=== PATIENT | male | born 1950 | race Hispanic/Latino ===

== ENCOUNTER 2017-05-18 09:53 | Emergency (ER) | payer MEDICARE, OTHER ==
[2017-05-18 12:27] LABS: Bilirubin Negative (Negative); Blood, Urine Small (Negative); Glucose, Urine (Dipstick) >=1000 mg/dL (Negative); Ketone, Urine Negative (Negative); Nitrite Negative (Negative); Protein, Urine (Dipstick) > or equal to 300 mg/dL (Neg-Trace); Urobilinogen 0.2 mg/dL (0.2-1.0)
[2017-05-18 12:30] LABS: Bacteria/HPF 1+ HPF (None Seen); Hyaline Casts/LPF 4-6 HYALINE CAST LPF (0-3 Hyaline)
== END 2017-05-18 12:45 | disposition home or self-care (01) ==
LOC: ERS 09:53
DX: N39.0 Urinary tract infection, site not specified (principal); I25.10 Atherosclerotic heart disease of native coronary artery without angina pectoris; E11.9 Type 2 diabetes mellitus without complications; E78.5 Hyperlipidemia, unspecified; I10 Essential (primary) hypertension; F41.9 Anxiety disorder, unspecified
CPT/HCPCS: 81003; 81015; 99283

== ENCOUNTER 2018-06-30 09:44 | Outpatient (CLI) | payer MEDICARE ==
--- NOTE | 2018-06-30 12:13 | ULT ---
ULTRASOUND DOPPLER DUPLEX VENOUS BILATERAL UPPER EXTREMITIES: (VENOUS MAPPING) 06/30/2018 HISTORY: A 67-year-old male with chronic renal failure who presents for venous mapping for surgical planning f or hemodialysis access AV fistula surgery. FINDINGS: RIGHT: Brachial artery: 5 mm Radial artery: 2 mm Ulnar artery: 1 mm CEPHALIC VEIN: Proximal arm: 3.5 mm Mid arm: 2.5 mm Distal arm: 2 mm Antecubital: 2 mm Proximal forearm: 1.5 mm Mid forearm: 2 mm Distal forearm: 1 mm BASILIC VEIN: Proximal arm: 5.5 mm Mid arm: 4.5 mm Distal arm: 3 mm Antecubital: 2.5 mm Proximal forearm: 1.5 mm Mid forearm: 1.5 mm Distal forearm: 1 mm LEFT: Brachial artery: 4 mm Radial artery: 1.5 mm Ulnar artery: 2 mm CEPHALIC VEIN: Proximal arm: 2.5 mm Mid arm: 1.5 mm Distal arm: 2.5 mm Antecubital: 2 mm Proximal forearm: 1.5 mm Mid forearm: 2 mm Distal forearm: 1.5 mm BASILIC VEIN: Proximal arm: 5.5 mm Mid arm: 4 mm Distal arm: 1.5 mm Antecubital: 1.5 mm Proximal forearm: 1.5 mm Mid forearm: 1 mm Distal forearm: 1.5 mm IMPRESSION: The right arm basilic vein is consistently 3 mm or larger in caliber. POS: [facility]
== END 2018-06-30 09:45 | disposition home or self-care (01) ==
LOC: ULT 09:44
PROVIDERS: ATTEND Internal Medicine Nephrology
DX: Z01.818 Encounter for other preprocedural examination (principal); N18.6 End stage renal disease
CPT/HCPCS: 93970; G0365

== ENCOUNTER 2018-07-03 14:33 | Emergency (ER) | payer MEDICARE ==
[2018-07-03 15:10] LABS: #Basophils 0.1 thou/uL (0.0-0.2); #Lymphocytes 1.3 thou/uL (1.20-3.40); #Monocytes 0.9 thou/uL (0.11-0.59); #Neutrophils 6.6 thou/uL (1.40-6.50); %Basophils 1.5 % (0.0-1.0); %Eosinophils 10.3 % (0.0-10.0); %Neutrophils 66.2 % (42.0-75.0); Hemoglobin 13.1 g/dL (14.0-18.0); Mean Corpuscular HGB CONC 34.3 g/dL (32.0-36.0); Mean Corpuscular Volume 93.3 fL (78.0-98.0); Mean Platelet Volume 9.9 fL (7.4-10.4); Platelet Count 153 thou/uL (130-400); Red Blood Cell (RBC) Count 4.08 mill/uL (4.70-6.10)
--- NOTE | 2018-07-03 15:27 | RAD ---
1 VIEW CHEST: Date: 07/03/18 HISTORY: Fall. FINDINGS: There are sternotomy wires. Right-sided HemoSplit dialysis catheter terminates in the right atrium. N ormal cardiac silhouette. Pulmonary vessels and hilum are normal. Costophrenic angles are clear. Hybrid Tester miles changes, without consolidation or mass. No pneumothorax. No osseous abnormalities. IMPRESSION: No acute cardiopulmonary process. POS: [facility]
[2018-07-03 15:35] LABS: ALT (SGPT) 22 U/L (8-55); AST (SGOT) 25 U/L (5-34); Albumin 4.2 g/dL (3.4-4.8); Alkaline Phosphatase 104 U/L (40-150); Anion Gap 15 mmol/L (10-20); BUN (Urea Nitrogen) 22 mg/dL (8.4-25.7); Bilirubin, Total 0.8 mg/dL (0.2-1.2); Calc. Creatinine Clearance 0 mL/min (70-130); Calcium 8.3 mg/dL (7.8-10.44); Carbon Dioxide 29 mmol/L (23-31); Chloride 99 mmol/L (98-107); Estimated GFR-MDRD 13; Globulin 3.2 g/dL (2.4-3.5); Glucose 66 mg/dL (80-115); Potassium 3.8 mmol/L (3.5-5.1); Protein, Total 7.4 g/dL (5.8-8.1); Sodium 139 mmol/L (136-145)
--- NOTE | 2018-07-03 15:41 | CT ---
CT BRAIN WITHOUT CONTRAST: Date: 07/03/18 HISTORY: Fall. Hypoglycemia. Hypertension. FINDINGS: Comparison made with exam of 06/03/16. There are changes of cortical atrophy and chronic small vessel ischemic disease. The ventricular size is appropriate and the basilar cisterns are patent. No evidence of infarct, hemorrhage, midline shif t, or abnormal extra-axial fluid collections are seen. The bony calvarium is intact. There is mucosal disease in the paranasal sinuses. IMPRESSION: No CT evidence of acute intracranial process. POS: [facility]
--- NOTE | 2018-07-03 15:43 | CT ---
CT OF THE CERVICAL SPINE WITHOUT CONTRAST: 07/03/18 HISTORY: Fall with neck pain. Hypertension. TECHNIQUE: Multiple contiguous axial images were obtained in a CT of the cervical spine without contrast. Sagit raisa and coronal reformats were performed. FINDINGS: Moderate degenerative changes are seen in the cervical spine. The vertebral bodies demonstrate norm al height and alignment without fracture or subluxation. No prevertebral soft tissue swelling is seen . The posterior facets are well aligned. Normal alignment of the skull base with the cervical spine is seen. Vascular calcifications are seen in the carotid arteries. The lung apices are unremarkable. IMPRESSION: Moderate degenerative changes of the cervical spine without acute osseous abnormality. POS: [facility]
--- NOTE | 2018-07-04 13:59 | EKG ---
Test Reason : SYNCOPE Blood Pressure : / mmHG Vent. Rate : 072 BPM Atrial Rate : 072 BPM P-R Int : 138 ms QRS Dur : 086 ms QT Int : 492 ms P-R-T Axes : 051 086 053 degrees QTc Int : 538 ms Sinus rhythm with occasional Premature ventricular complexes Junctional ST depression, probably normal Prolonged QT Confirmed by ELAINA TERRAZAS D.O. ([id number]), newspaper or periodical editor MEÑO PAINTING ([id number]) on 07/04/2018 1:58:54 PM Referred By: MK Confirmed By:ELAINA TERRAZAS D.O.
== END 2018-07-03 17:44 | disposition home or self-care (01) ==
LOC: ERS 14:33
DX: E11.649 Type 2 diabetes mellitus with hypoglycemia without coma (principal); E78.5 Hyperlipidemia, unspecified; I10 Essential (primary) hypertension; F41.9 Anxiety disorder, unspecified; Z79.899 Other long term (current) drug therapy
CPT/HCPCS: 36415; 36416; 70450; 71045; 72125; 80053; 83605; 83735; 85025; 93005

== ENCOUNTER 2018-07-06 11:18 | Inpatient (IN) | payer MEDICARE ==
[~2018-07-06 11:18] MED LIST: Iopamidol-370 76% 500 ML 1 ML ONE
[2018-07-06] MEDS ORDERED: Piperacillin/Tazobactam 3.375 GM VIAL ONE (11:34)
[2018-07-06 12:04] LABS: Hemoglobin 9.8 g/dL (14.0-18.0); Mean Corpuscular HGB CONC 32.2 g/dL (32.0-36.0); Mean Corpuscular Hemoglobin 29.8 pg (27.0-31.0); Mean Corpuscular Volume 92.7 fL (78.0-98.0); Mean Platelet Volume 10.4 fL (7.4-10.4); Platelet Count 120 thou/uL (130-400); RBC Distribution Width 12.9 % (11.5-14.5); Red Blood Cell (RBC) Count 3.27 mill/uL (4.70-6.10); White Blood Cell (WBC) Count 7.7 thou/uL (4.8-10.8)
--- NOTE | 2018-07-06 12:06 | RAD ---
CHEST 1 VIEW: Date: 07/06/18 HISTORY: Chest pain. Altered mental status. COMPARISON: Chest radiograph dated 07/03/18. FINDINGS: Heart size is enlarged. Mild pulmonary venous congestion or early edema. No pneumothorax. Multiple midline sternotomy wires with fracture of the second from the caudal most wire. Dialysis catheter tip at right atrium. IMPRESSION: Cardiomegaly with moderate edema. POS: [facility]
[2018-07-06 12:16] LABS: ALT (SGPT) 16 U/L (8-55); AST (SGOT) 16 U/L (5-34); Acetaminophen Less than 6.0 mcg/mL (10.0-30.0); Albumin 3.4 g/dL (3.4-4.8); Alcohol Less than 10 mg/dL (Less than 10); Alkaline Phosphatase 70 U/L (40-150); Anion Gap 18 mmol/L (10-20); BUN (Urea Nitrogen) 47 mg/dL (8.4-25.7); Bilirubin, Total 0.4 mg/dL (0.2-1.2); CK (CPK) 385 U/L (30-200); Calc. Creatinine Clearance 0 mL/min (70-130); Calcium 6.5 mg/dL (7.8-10.44); Carbon Dioxide 18 mmol/L (23-31); Chloride 99 mmol/L (98-107); Estimated GFR-MDRD 8; Globulin 2.5 g/dL (2.4-3.5); Glucose 92 mg/dL (80-115); Lipase 27 U/L (8-78); Protein, Total 5.9 g/dL (5.8-8.1); Salicylate Less than 8.0 mg/dL (15.0-30.0); Sodium 131 mmol/L (136-145)
[2018-07-06 12:22] LABS: Eosinophils 7 % (0-10); Lymphocytes 5 % (21-51); MDiff Complete? YES; Monocytes 6 % (0-10); Neutrophil 82 % (42-75); PLT Morphology Comment Appears Decreased
[2018-07-06 12:38] LABS: Bilirubin Negative (Negative); Blood, Urine Small (Negative); Clarity CLOUDY (Clear); Glucose, Urine (Dipstick) 100 mg/dL (Negative); Leukocyte Negative (Negative); Nitrite Negative (Negative); Protein, Urine (Dipstick) > or equal to 300 mg/dL (Neg-Trace); Specific Gravity, Urine 1.018 (1.002-1.036); Urobilinogen 0.2 mg/dL (0.2-1.0)
[2018-07-06 12:41] LABS: Hyaline Casts/LPF 4-6 HYALINE CAST LPF (0-3 Hyaline); Pathc Cast-AUWi Flag 1.01 (0-2.49); WBC/HPF 0-3 HPF (0-3)
[2018-07-06 12:54] LABS: Amphetamine Not Detected (NotDetected); Barbiturates Screen Not Detected (NotDetected); Benzodiazepine Screen Not Detected (NotDetected); Cocaine Metabolite Screen Not Detected (NotDetected); Medtox Control Line Valid? VALID (VALID); Medtox Reader # READER 4; Methadone Not Detected (NotDetected); Methamphetamine Not Detected (NotDetected); Opiate Screen Not Detected (NotDetected); Oxycodone Screen Not Detected (NotDetected); Phencyclidine (PCP) Not Detected (NotDetected); THC/Cannabinoid Screen Not Detected (NotDetected); Tricyclic Screen Not Detected (NotDetected)
[2018-07-06 13:04] LABS: INR-International Normal Ratio 1.2; Prothrombin Time 14.8 SEC (12.0-14.7)
[2018-07-06 13:05] LABS: Renal Epithelial None Seen HPF (0-3); Transitional Epithelial NONE SEEN HPF (0-3)
[2018-07-06 13:05] LABS: PTT 32.6 SEC (22.9-36.1)
[2018-07-06 13:09] LABS: Bacteria/HPF Rare-Few HPF (None Seen)
[2018-07-06 13:10] LABS: Crystals/HPF 1+ AMORPH URATES HPF (Negative)
--- NOTE | 2018-07-06 13:13 | CT ---
CT OF BRAIN PERFORMED WITHOUT CONTRAST ENHANCEMENT: Date: 07/06/18 HISTORY: Altered mental status. COMPARISON: 07/03/18. FINDINGS: There is some generalized ventricular and sulcal prominence with decreased attenuation to the periven tricular white matter consistent with chronic ischemic white matter change. There are no signs of int racerebral hemorrhage or extra-axial fluid collections. Mastoid air cells and visualized sinuses are clear. IMPRESSION: No acute intracranial abnormalities. POS: [facility]
[2018-07-06] MEDS ORDERED: Vancomycin HCl 1 GM in Premix Bag 1 BAG IVPB SCH ×2 (14:15→18:30)
[2018-07-06] MEDS ORDERED: Sodium Bicarb 50 MEQ/50 ML Abboject 8.4% SYRINGE ONE (14:31)
[2018-07-06] MEDS ORDERED: Sodium Bicarb 50 MEQ/50 ML VIAL ONE (14:35)
[2018-07-06] MEDS ORDERED: Clindamycin/D5W 600 mg/50 ml Premix Bag ONE (14:44)
[2018-07-06] MEDS ORDERED: Acetaminophen 500 MG TAB ONE (15:00)
[2018-07-06] MEDS ORDERED: Hydrocortisone Sod Succ/PF 100 mg/2 ml Vial ONE (15:15)
[2018-07-06] MEDS ORDERED: Morphine 2 MG/ML SYRINGE ONE (15:15)
[2018-07-06] MEDS ORDERED: Octreotide Acetate 50 MCG/ML AMP ONE (15:59)
[2018-07-06] MEDS ORDERED: Sodium Bicarbonate 150 MEQ in Dextrose 5% in Water 1,000 ML IV SCH (16:00)
[2018-07-06] MEDS ORDERED: Acetaminophen 650 MG in Premix Bag 1 BAG IVPB PRN (16:58)
[2018-07-06 17:00] LABS: Lactic Acid 2.2 mmol/L (0.5-2.2)
[2018-07-06 17:09] LABS: Troponin I 0.016 ng/mL (< 0.028)
[2018-07-06] MEDS ORDERED: Vancomycin Sliding Scale 1 EACH FS ONE (18:30)
[2018-07-06] MEDS ORDERED: Vancomycin HCl 250 MG in Sodium Chloride 0.9% 100 ML IVPB SCH (18:30)
[2018-07-06] MEDS ORDERED: Vancomycin HCl 500 MG in Sodium Chloride 0.9% 100 ML IVPB SCH (18:30)
[2018-07-06] MEDS ORDERED: HOLD VANCOMYCIN FOR LEVEL >20 FS SCH (18:30)
[2018-07-06] MEDS ORDERED: Vancomycin HCl 750 MG in Sodium Chloride 0.9% 250 ML 250 ML IVPB SCH (18:30)
--- NOTE | 2018-07-06 18:38 | HP ---
PRIMARY CARE PROVIDER: [facility]. CHIEF COMPLAINT: Low blood sugar. HISTORY OF PRESENT ILLNESS: Mr. Bradford is a pleasant 67-year-old gentleman, who was seen at [facility] on July 06, 2018. Mr. Bradford mainly speaks Nepali. His daughter was translating for this clinical encounter. Mr. Bradford was started on hemodialysis about 6 weeks ago. He goes to dialysis on Friday, , and Friday. He missed dialysis last Friday, that is 2 days ago. He went to dialysis today. There, he was found to have low blood sugars. His blood pressure was also low. He was therefore sent to the emergency room. Mr. Bradford was also reportedly had confusion when he initially arrived in the emergency room, but that appears to be improving. He denies any chest pain or shortness of breath. He denies any fevers or chills. He knows he is at the hospital, but is unable to tell me why. He had no complaints. He was also found to be hypothermic in the emergency room. REVIEW OF SYSTEMS: All other systems reviewed and found to be negative. PAST MEDICAL HISTORY: Coronary artery disease, peripheral vascular disease, diabetes mellitus type 2, hypertension, dyslipidemia, diabetic neuropathy, erectile dysfunction, and end-stage renal disease on hemodialysis. PAST SURGICAL HISTORY: Coronary artery bypass graft, appendectomy, cataract surgery, carotid endarterectomy. ALLERGIES: NO KNOWN DRUG ALLERGIES. CURRENT MEDICATIONS: 1. Atorvastatin 10 mg daily. 2. Lisinopril 10 mg daily. 3. Hydroxyzine 25 mg two times a day. 4. Labetalol 100 mg two times a day. 5. Nifedipine 90 mg daily. 6. Aspirin 81 mg daily. 7. Lasix 40 mg daily. 8. Levemir 50 units in the morning and 30 units in the evening. 9. Trazodone 50 mg at bedtime. FAMILY HISTORY: Several family members with diabetes mellitus, hypertension, and heart disease. SOCIAL HISTORY: The patient denies tobacco use, alcohol use, or recreational drug use. CODE STATUS: I discussed his code status, he is full code. PHYSICAL EXAMINATION: GENERAL: Mr. Bradford is awake and alert, not in acute distress. VITAL SIGNS: Blood pressure is 105/71, pulse 57, respiratory rate 16, and oxygen saturation 98% on room air. Criticore temperature is 94.3 degrees Fahrenheit. Earlier, he had a temperature as low as 89.6 degrees Fahrenheit and blood pressure as low as 81/48. EYES: No scleral icterus. No conjunctival pallor. ENT: Moist mucosal membranes. No oropharyngeal erythema or exudates. NECK: Supple, nontender. Trachea is midline. RESPIRATORY: Accessory muscles of breathing are not active. Chest wall movements are symmetric bilaterally. LUNGS: Clear to auscultation without wheeze, rhonchi, or crepitations. CARDIOVASCULAR: S1 and S2 are heard, regular. Peripheral pulses palpable. No carotid bruit. No pericardial rub. ABDOMEN: Soft, nontender. Bowel sounds are heard. No hepatomegaly. No splenomegaly. NEUROLOGIC: Cranial nerves 2 trough 12 intact. Deep tendon reflexes 2+. MUSCULOSKELETAL: Power is 5/5 in all four extremities. SKIN: No rashes or subcutaneous nodules. LYMPHATIC: No cervical lymphadenopathy. PSYCHIATRIC: Normal mood. Normal affect. The patient is oriented to person and place, not to time. LABORATORY DATA AND INVESTIGATIONS: Mr. Bradford's labs and investigations were reviewed. I reviewed his electrocardiogram, which shows sinus bradycardia, no ST changes to suggest an acute coronary syndrome. I also reviewed his chest x-ray, which does not show any pulmonary infiltrates. He also has pulmonary venous congestion. Noncontrast CT scan of the brain did not show any acute intracranial abnormality. He also had CT dissection protocol, report is pending. He has normal white count, normocytic anemia with hemoglobin 9.8, thrombocytopenia with platelet count 120,000, last known platelet count 153,000 on July 03, 2018. INR 1.2. Sodium decreased at 131, normal potassium, elevated blood urea nitrogen of 47, elevated creatinine of 6.94, elevated lactic acid level of 2.6, decreased calcium level of 6.5, normal albumin, normal magnesium. Urinalysis negative for nitrite and leukocyte esterase, and negative urine drug screen. ASSESSMENT AND PLAN: Mr. Bradford is a pleasant 67-year-old gentleman, who was seen at [facility] on July 06, 2018. His problem list includes: 1. Hypotension: Etiology is unclear. Differential diagnosis include cardiogenic shock and septic shock among other etiologies. He has been started on broad-spectrum intravenous antibiotics, which I will continue. We will await blood cultures. We will also do fluid resuscitation to the extent possible. If the blood pressure does not improve, he may need to be started on pressors. 2. Hypoglycemia: Again, etiology is unclear. We will hold diabetes medications and we will treat him with dextrose containing intravenous fluids. 3. End-stage renal disease, on dialysis: Nephrology Service has been consulted for maintenance dialysis. 4. Coronary artery disease: Appears to be stable. The patient denies any chest pain, and troponins are in the normal range. 5. Acute encephalopathy: Etiology unclear at this time. We will continue to observe and treat various medical conditions as described above. The emergency room physician has done a bedside 2D echocardiogram and reports that there is no cardiac tamponade. We will request a formal 2D echocardiogram. Many thanks for allowing me to participate in your patient's care. Please feel free to contact me with any questions or concerns. LEVEL OF RISK: High. LEVEL OF COMPLEXITY: High. Job ID: [id number] [facility]ITAL[facility]
--- NOTE | 2018-07-06 19:06 | CT ---
CT ANGIOGRAM CHEST: CT ANGIOGRAM ABDOMEN: HISTORY: Aortic dissection. Pain. COMPARISON: Chest radiograph from the same day. TECHNIQUE: CT angiogram of the chest and abdomen is performed after the intravenous administration of contrast, and 3D rendering was provided. FINDINGS: The pulmonary trunk is enlarged, measuring 31 mm. Small pericardial effusion. The thoracic aorta is without aneurysmal dilatation. No dissection. The abdominal aorta is without aneurysmal dilatation. No dissection. The inferior mesenteric artery, the superior mesenteric artery, the celiac arteries are all patent. Both renal arteries are patent. There are moderate layering bilateral pleural effusions. Mild pulmonary edema. Compression atelecta sis in both lung bases. There are bridging anterior osteophytes of the thoracic spine without significant narrowing of the di sk spaces, suggesting diffuse idiopathic skeletal hyperostosis. There is grade 1 L4-L5 anterolisthes is due to severe facet arthropathy, along with bilateral neural foraminal narrowing. Prior median sternotomy changes. Old healed right posterolateral 9th rib fracture. Small subcutaneo us foci of gas in the right upper quadrant of the abdomen, anteriorly, likely injection related. No acute displaced rib fracture. No acute osseous abnormality. There is a lumbosacral transitional vertebra on the left, with the enlarged left lumbar spine transverse process having an anomalous urszula culation with the sacrum. Cholelithiasis is present. The spleen is unremarkable. No retroperitoneal adenopathy. No dilated loops of large or small bowel of the abdomen. IMPRESSION: 1. No evidence for aortic dissection or aneurysm formation. 2. Dilated pulmonary trunk suggesting pulmonary artery hypertension. 3. Likely reactive small mediastinal lymph nodes. 4. Moderate layering bilateral pleural effusions, as well as mild pulmonary edema. POS: [facility]
[2018-07-06] MEDS ORDERED: MEROPENEM 1 GM/50 ML 1 GM in Premix Bag 1 BAG IVPB SCH (20:00)
[2018-07-06 20:42] LABS: Troponin I 0.011 ng/mL (< 0.028)
[2018-07-06] MEDS ORDERED: Piperacillin/Tazobactam 2.25 GM in Sodium Chloride 0.9% 100 ML IVPB SCH (22:00)
[2018-07-06] MEDS: Hydrocortisone Sod Succ/PF 100 mg/2 ml Vial IVP SCH (22:59)
--- NOTE | 2018-07-06 23:56 | CON ---
DATE OF CONSULTATION: HISTORY OF PRESENT ILLNESS: Wily Bradford is a 67-year-old gentleman, who speaks no Guinean. Family brought him from dialysis center after he was found to be hypoglycemic. I was told his blood sugars were low and he was given an amp of D50, shortly thereafter became hypotensive in the ER now for a prolonged period of time. Extensive workup which included a CT of the brain, which was unremarkable. Daughter states that the patient was here in the ER several days ago with hypertension, blood pressure was 234/120. He was also hypoglycemic, his blood sugar was 48. He was stabilized and apparently discharged home. She was unhappy that he was discharged home. The patient had recurrent episodes of hypoglycemia and uncontrolled blood pressure. He normally seeks care at [facility], unclear who the doctors are, but they do see a local patient transport orderly He is a former smoker. PAST MEDICAL HISTORY: Coronary artery disease; diabetes; renal failure, recently on dialysis; high cholesterol; hyperlipidemia; and hypertension. PREVIOUS SURGERIES: Appendix and bypass graft surgery. SOCIAL HISTORY: Alcohol as noted, he drinks socially. Tobacco, quit smoking. MEDICATIONS: His list of medicine from home includes; 1. Atorvastatin 10 a day. 2. Lisinopril 10 a day. 3. Labetalol 100 two a day. 4. Nifedipine 90. ALLERGIES: APPARENTLY NONE. REVIEW OF SYSTEMS: Unremarkable. PHYSICAL EXAMINATION: GENERAL: He is awake and alert in the ER. VITAL SIGNS: Saturations of 95, pulse of 80, blood pressure is 110/70. He has received a total of at least 1 L of fluid as per the nurses. Respirations 20, afebrile. CHEST: Decreased breath sounds. No wheezing. No crackles. CARDIAC: Normal S1 and S2. No gallops. ABDOMEN: Soft without any masses. NEUROLOGICAL: He is awake, alert, and responsive. Moves all 4 extremities. DIAGNOSTIC DATA: CT abdomen was ordered because he complained of back pain, they are concerned he may have a dissection. Creatinine is 6.95. His bicarbonate is 18 and creatine kinase is 385. Cortisol level is 12.4, relatively low. Wbc's 0 to 3. Drug screen was negative. IMPRESSION: 1. Hypoglycemia, recurrent. Etiology unclear. 2. Chronic back pain. 3. Renal failure. 4. Coronary artery disease. Once he is stabilized, can probably move out of the ICU. He was already started on hydrocortisone and broad-spectrum antibiotics by the ER physician. Primary care sock liner started him on bicarb. TIME SPENT: This is a consultation note, 70 minutes, 50% direct patient care. Job ID: [id number]
--- NOTE | 2018-07-07 03:35 | CON ---
DATE OF CONSULTATION: 07/06/2018 NEPHROLOGY CONSULTATION REASON FOR CONSULTATION: End-stage renal disease and pulmonary edema. HISTORY OF PRESENT ILLNESS: This is a 67-year-old gentleman, who went to dialysis, was noted to be hypertensive and hypoglycemic, and 911 was called. The patient took extra insulin. The patient denies any headache, numbness, tingling, or weakness. Denies any nausea, vomiting, or chest pain. PAST MEDICAL HISTORY: Significant for end-stage renal disease, hypertension, anemia, diabetes mellitus, non-compliance with dialysis. PAST SURGICAL HISTORY: Appendectomy, CABG, carotid endarterectomy. SOCIAL HISTORY: No alcohol or drug use. FAMILY HISTORY: Negative for ESRD. ALLERGIES: REVIEWED. MEDICATIONS: Home medications list, hospital medications reviewed. REVIEW OF SYSTEMS: Fifteen-point review of systems was performed and negative except for positives noted above. NECK: No swelling or lumps. NOSE: No epistaxis or discharge. EYES: No diplopia or pain. MUSCULOSKELETAL: No joint pain. NEUROPSYCHIATRIC SYSTEMS: No suicidal ideation. No ideation. SKIN: Denies any rash or ulcer. CONSTITUTIONAL: No fever or chills. PHYSICAL EXAMINATION: GENERAL: The patient is awake and alert. VITAL SIGNS: Afebrile, pulse 80, breathing 16, and blood pressure 100/70. GENERAL APPEARANCE AND MENTAL STATUS: Fair. HEAD/NECK: Normocephalic. Atraumatic. EYES: EOMI. No deformity. EARS: Clear. No ulcers. NOSE: Intact. No lesions. MOUTH: Clear. No discharge. THROAT: Clear. No exudate. LUNGS: Clear. No crackles. CARDIAC: S1, S2. No rub. ABDOMEN: Benign. Bowel sounds positive. GENITALIA/RECTUM: Caceres absent. BACK/EXTREMITIES: Edema 0+. NEUROLOGICAL: Alert and motor intact. LABORATORY DATA: Labs show hemoglobin 9.8 1. Hypertension, stable. 2. Anemia, stable. 3. Hypoglycemia, avoid glyburide. 4. Medications based on GFR are appropriate. 5. Stage 6 CKD plan HD Job ID: [id number] [facility]
[2018-07-07] MEDS: Hydrocortisone Sod Succ/PF 100 mg/2 ml Vial IVP SCH ×3 (05:42→21:22)
--- NOTE | 2018-07-07 07:05 | ER ---
DATE OF SERVICE: 07/06/2018 ADDENDUM: Please refer to the patient's electronic medical record for further details of his visit. In summary, the patient presents with altered mental status and hypoglycemia from dialysis, where he presented this morning with his . He had missed dialysis last Friday because he was not feeling well. His states that he had some shortness of breath, but otherwise no specific symptoms beyond "not feeling well." On arrival, the patient was awake and alert, he was oriented x3/4, and was able to follow commands. He was maintaining his airway protective reflexes. He was noted to be hypotensive in the 80s, systolic. His glucose was adequate on arrival. He had pulses present in all extremities. On secondary survey, the patient was noted to have healing bruise around the right orbit. This he reports was from a fall approximately 1 week ago, for which he was already evaluated. He has a dialysis catheter with no evidence of surrounding cellulitis at the right upper chest. He has no other acute physical exam findings suggestive of a source of cellulitis, abscess, or infection. Findings in the emergency department revealed no clear underlying causes of his altered mentation. He does have pulmonary edema consistent with missed dialysis. His potassium was not elevated. He does not have evidence of ST-elevation [place]. His hemoglobin is at baseline. He has had a very mildly elevated lactate, which combined with collapsed right ventricle on his bedside ultrasound, is consistent with intravascular volume depletion. He was hydrated gently with IV fluids in consultation with Dr. Kaminski, his director orange, given concern for his end-stage renal disease. No clear infectious focus is apparent. During his ER stay, he repeatedly became hypoglycemic despite D5 infusion and required additional glucose supplementation in addition to this. His states that he may have overdosed on insulin, though she is unsure as he administered insulin to himself this morning. He was given octreotide as well in an attempt to improve his glucose status. Additionally, he was extremely hypothermic and remained so throughout his ER stay despite use of Edie Huggers throughout his time in the ER. This, with his hypotension, which initially responded to IV fluids, but remained labile throughout his stay , are concerning for sepsis. The patient was covered with antibiotics for this. Also during his stay, the patient developed right flank pain, rather acutely. Because of this, evaluation was undertaken given concern for possible vascular pathology such as AAA or aortic dissection. This showed no vascular insult. The patient was evaluated by the [facility] Internal Medicine Service, Dr. Kaminski with Nephrology service, and Dr. Fallon of the Pulmonology service while in the emergency department. He remains in critical condition at the time of admission with a guarded prognosis. His family was updated on repeated occasions during his ER stay with findings and plan. They seemed agitated at times and at one point, asked for a transfer to [facility]. However, the patient was deemed unstable for transfer given his current critical condition. This was explained to the family prior to his admission to the ICU. Job ID: [id number] [facility]
--- NOTE | 2018-07-07 09:27 | PRG ---
DATE OF SERVICE: 07/07/2018 SUBJECTIVE: This morning, awake, alert, and responsive. OBJECTIVE: VITAL SIGNS: Blood pressure is stabilized at 160/100. No longer hypotensive. Blood sugars are much improved in the 200 range. Pulse 79, saturations 955 room air, and respiratory rate 18. GENERAL: Awake, alert, and responsive, in no distress. CHEST: Decreased breath sounds. No wheezing. CARDIAC: Normal S1 and S2. No gallops no murmers. IMPRESSION: 1. Status post hypotension, etiology unclear, probably volume depleted. 2. Hypoglycemia, resolved. Blood sugar is 279. No evidence of any sepsis at this stage. I would discontinue all his antibiotics. Continue dialysis. He can be transferred out of the ICU. DISPOSITION: Home in the next 24 to 48 hours. Job ID: [id number] [facility]
[2018-07-07] MEDS: ALPRAZolam 0.25 MG TAB PO PRN ×2 (10:22→21:21)
--- NOTE | 2018-07-07 11:44 | PRG ---
DATE OF SERVICE: 07/07/2018 SUBJECTIVE: A 67-year-old gentleman being seen for end-stage renal disease. The patient denies any nausea, vomiting, or chest pain. OBJECTIVE: CONSTITUTIONAL: The patient is awake and alert. VITAL SIGNS: Afebrile, pulse 80, breathing 16, and blood pressure 133/82. GENERAL APPEARANCE AND MENTAL STATUS: Fair. HEAD/NECK: Normocephalic. Atraumatic. EYES: EOMI. No deformity. EARS: Clear. No ulcers. NOSE: Intact. No lesions. MOUTH: Clear. No discharge. THROAT: Clear. No exudate. LUNGS: Clear. No crackles. CARDIAC: S1, S2. No rub. ABDOMEN: Benign. Bowel sounds positive. GENITALIA/RECTUM: Caceres absent. BACK/EXTREMITIES: Edema 0+. NEUROLOGICAL: Alert and motor intact. LABORATORY DATA: None today. ASSESSMENT AND PLAN: 1. Stage 6 chronic kidney disease, . 2. Hypertension, start lisinopril. 3. Anemia, stable. 4. Medications based on GFR as appropriate. Job ID: [id number]
[2018-07-07 11:59] LABS: Anion Gap 19 mmol/L (10-20); BUN (Urea Nitrogen) 60 mg/dL (8.4-25.7); Calc. Creatinine Clearance 0 mL/min (70-130); Calcium 6.5 mg/dL (7.8-10.44); Carbon Dioxide 20 mmol/L (23-31); Chloride 96 mmol/L (98-107); Estimated GFR-MDRD 7; Glucose 326 mg/dL (80-115); Sodium 128 mmol/L (136-145)
[2018-07-07 12:30] LABS: Vancomycin, Peak 12.8 ug/mL (20.0-40.0)
--- NOTE | 2018-07-07 12:56 | PQF ---
DATE: 07-07-18 ATTN: DR. ENEDINA NEWMAN Please exercise your independent, professional judgment in responding to the clarification form. Clinical indicators are provided on the bottom of this form for your review Please check appropriate box(s): [ ] Encephalopathy: Type: [ ] Acute [ ] Subacute [ ] Chronic Etiology: [ ] Hypertensive [ ] Metabolic [ ] Toxic [ ] Septic [ ] Other (please specify) [ ] Transient Alteration of Awareness [ ] Other diagnosis [ ] Unable to determine In addition, please specify: Present on Admission (POA): [ ] Yes [ ] No [ ] Unable to determinee For continuity of documentation, please document condition throughout progress notes and discharge summary. Thank You. CLINICAL INDICATORS - SIGNS / SYMPTOMS / LABS ER: HYPOGLYCEMIA FROM DIALYSIS, CONFUSED, HYPOTHERMIC H&P: HYPOTENSION, HYPOGLYCEMIA, ESRD, ACUTE ENCEPHALOPATHY RISK FACTORS: H&P: CAD, PVD, DM 2, HTN, DYSLIPIDEMIA, ESRD, CAME IN WITH HYPOGLYCEMIA AND HYPOTHERMIA TREATMENTS: ER: NS IVF, D5% AND 0.9 SODIUM CHLORIDE, D50W, LEVOFLOXACIN, VANCOMYCIN, ZOSYN (This form is maintained as a part of the permanent medical record) 2014 [employer]. All Rights Reserved [email or web address] Office: [phone] [facility] HOSPITALJonatan
[2018-07-07] MEDS ORDERED: NIFEdipine XL 90 MG TAB PO SCH (13:00)
[2018-07-07] MEDS ORDERED: Lisinopril 10 MG TAB PO SCH (13:15)
[2018-07-07 15:02] LABS: HBSAg Index 0.22 S/CO (0-0.99); Hep B Surf Ag Non-Reactive S/CO (NonReactive)
--- NOTE | 2018-07-07 17:58 | PDOC.PN ---
- Subjective Encounter Start Date: 07/07/18 Encounter Start Time: 11:40 Pt seen for followup re: acute metabolic encephalopathy. Awake and alert, answering questions. Does not remember much of yesterday's events. - Objective MAR Reviewed: Yes Vital Signs & Weight: Vital Signs (12 hours) Temp Pulse BP Pulse Ox 07/07/18 13:13 160/80 H 07/07/18 13:12 90 160/80 H 07/07/18 12:00 98.9 F 07/07/18 08:00 98.8 F 98 07/07/18 07:00 98.8 F Weight Weight 2.466 oz Most Recent Monitor Data Heart Rate from ECG 90 NIBP 160/100 NIBP BP-Mean 120 Respiration from ECG 17 SpO2 84 I&O: 07/06/18 07/07/18 07/08/18 06:59 06:59 06:59 Intake Total 580 360 Output Total 170 40 Balance 410 320 Result Diagrams: 07/06/18 11:41 07/07/18 20:01 Additional Labs: Accuchecks 07/07/18 07/07/18 07/06/18 11:56 06:38 20:15 POC Glucose 238 H 279 H 217 H 07/06/18 18:06 POC Glucose 161 H EKG Reviewed by me: Yes (Tele: NSR) Phys Exam - Physical Examination Constitutional: NAD HEENT: moist MMs, sclera anicteric, oral pharynx no lesions, 2+ tonsils Neck: no nodes, no JVD, supple, full ROM Respiratory: clear to auscultation bilateral Cardiovascular: RRR S1, S2 Gastrointestinal: soft, non-tender, no distention, positive bowel sounds Neurological: moves all 4 limbs Psychiatric: normal affect, A&O x 3 Dx/Plan (1) Acute metabolic encephalopathy Code(s): G93.41 - METABOLIC ENCEPHALOPATHY Status: Acute Comment: Improved (2) Hyperkalemia Code(s): E87.5 - HYPERKALEMIA Status: Acute Comment: pt to receive dialysis (3) ESRD on dialysis Code(s): N18.6 - END STAGE RENAL DISEASE; Z99.2 - DEPENDENCE ON RENAL DIALYSIS Status: Chronic Comment: dialysis per nephrology (4) CAD (coronary artery disease) Code(s): I25.10 - ATHSCL HEART DISEASE OF [place] CORONARY ARTERY W/O ANG PCTRS Status: Chronic Qualifiers: Coronary Disease-Associated Artery/Lesion type: bypass graft Comment: stable (5) Diabetes type 2, controlled Code(s): E11.9 - TYPE 2 DIABETES MELLITUS WITHOUT COMPLICATIONS Status: Chronic Qualifiers: Diabetes mellitus manager terminal insulin use: with manager terminal use Diabetes mellitus complication status: with kidney complications Diabetes mellitus complication detail: with chronic kidney disease Chronic kidney disease stage : on chronic dialysis Qualified Code(s): E11.22 - Type 2 diabetes mellitus with diabetic chronic kidney disease; N18.6 - End stage renal disease; Z79.4 - rodent exterminator (current) use of insulin; Z99.2 - Dependence on renal dialysis Comment: hypoglycemia resolved (6) Dyslipidemia Code(s): E78.5 - HYPERLIPIDEMIA, UNSPECIFIED Status: Chronic Comment: continue statin (7) Hypertension Code(s): I10 - ESSENTIAL (PRIMARY) HYPERTENSION Status: Chronic Comment: hypotension has resolved, will resume home medications (8) Hypoglycemia Code(s): E16.2 - HYPOGLYCEMIA, UNSPECIFIED Status: Resolved (9) Hypothermia Code(s): T68.XXXA - HYPOTHERMIA, INITIAL ENCOUNTER Status: Resolved (10) Hypotension Status: Resolved - Plan * . Review of Systems - Review of Systems Constitutional: negative: fever, chills, sweats, weakness, malaise Respiratory: negative: Cough, Shortness of Breath, SOB with Excertion, Pleuritic Pain, Wheezing Cardiovascular: negative: chest pain, palpitations, orthopnea, paroxysmal nocturnal dyspnea, edema, light headedness Gastrointestinal: negative: Nausea, Vomiting, Abdominal Pain, Diarrhea, Constipation, Melena, Hematochezia Genitourinary: negative: Dysuria, Frequency, Incontinence, Hematuria, Retention Skin: negative: Rash, Lesions, Manjinder, Bruising - Medications/Allergies Allergies/Adverse Reactions: Allergies Allergy/AdvReac Type Severity Reaction Status Date / Time No Known Drug Allergies Allergy Verified 10/13/14 05:30 Medications: Current Medications Alprazolam (Xanax) 0.25 mg PO TIDPRN PRN PRN Reason: Anxiety Last Admin: 07/07/18 10:22 Dose: 0.25 mg Aspirin (Ecotrin) 81 mg PO DAILY [facility] Atorvastatin Calcium (Lipitor) 10 mg PO HS [facility] Hydrocortisone Sodium Succinate (Solu-Cortef) 25 mg IVP BID [facility] Last Admin: 07/07/18 09:20 Dose: 25 mg Hydroxyzine HCl (Atarax) 25 mg PO Q12HR [facility] Meropenem 1 gm/ Device 50 mls @ 100 mls/hr IVPB 2000 [facility] Last Admin: 07/06/18 20:56 Dose: 50 mls Vancomycin HCl 1 gm/ Device 200 mls @ 200 mls/hr IVPB WILLCALL [facility] Vancomycin HCl 750 mg/ Sodium (Chloride) 250 mls @ 250 mls/hr IVPB [facility] Vancomycin HCl 500 mg/ Sodium (Chloride) 100 mls @ 100 mls/hr IVPB [facility] Last Admin: 07/07/18 14:12 Dose: 100 mls Vancomycin HCl 250 mg/ Sodium (Chloride) 100 mls @ 100 mls/hr IVPB [facility] Labetalol HCl (Normodyne) 100 mg PO Q12HR [facility] Miscellaneous Medication (Pharmacy To Dose) 1 each IVPB ONE PRN PRN Reason: Pharmacy to dose Stop: 07/16/18 14:13 Nifedipine (Procardia Xl) 90 mg PO DAILY [facility] Hold Vancomycin For (Level >20) 0 each FS .AT DIALYSIS [facility] Sodium Chloride (Flush - Normal Saline) 10 ml IVF Q12HR [facility] Last Admin: 07/07/18 10:18 Dose: 10 ml Sodium Chloride (Flush - Normal Saline) 10 ml IVF PRN PRN PRN Reason: Saline Flush
[2018-07-07] MEDS ORDERED: Dextrose 5% in Water 1,000 ML IV PRN (19:00)
[2018-07-07] MEDS ORDERED: Dextrose 50% Abboject 50 ML SYRINGE IVP PRN (19:00)
[2018-07-07 20:39] LABS: Potassium 4.1 mmol/L (3.5-5.1)
[2018-07-07] MEDS: Labetalol 100 MG TAB PO SCH (21:21)
[2018-07-07] MEDS: HumaLOG 300 UNITS/3 ML VIAL SC PRN (21:25)
[2018-07-07] MEDS: hydrOXYzine 25 MG TAB PO SCH (22:00)
[2018-07-08] MEDS: Hydrocortisone Sod Succ/PF 100 mg/2 ml Vial IVP SCH ×2 (09:09→19:52)
[2018-07-08] MEDS: Labetalol 100 MG TAB PO SCH ×2 (09:09→19:53)
[2018-07-08] MEDS: Aspirin 81 mg Enteric Coated Tablet PO SCH (09:09)
--- NOTE | 2018-07-08 09:24 | PRG ---
DATE OF SERVICE: 07/08/2018 SUBJECTIVE: This morning, he is awake, alert, responsive, ready to be discharged home. OBJECTIVE: VITAL SIGNS: Blood pressure 159/65, pulse 75, sats are 98% on room air, respiratory rate 18. GENERAL: Awake, alert, and responsive. EXTREMITIES: He moves all four extremities. CHEST: No wheezing or crackles. CARDIAC: Normal S1, S2. No gallops. ABDOMEN: No masses. LABORATORY DATA: Blood sugar is 142. IMPRESSION: 1. Status post hypoglycemia, resolved. 2. Hypertension, improved. 3. Hypotension, resolved. PLAN: He can be discharged home to be followed by primary care physician will see as needed Job ID: [id number] MTDD
[2018-07-08] MEDS: NIFEdipine XL 90 MG TAB PO SCH ×2 (09:32→09:35)
[2018-07-08] MEDS: hydrOXYzine 25 MG TAB PO SCH ×2 (09:33→21:03)
--- NOTE | 2018-07-08 10:55 | PRG ---
DATE OF SERVICE: 07/08/2018 SUBJECTIVE: A 67-year-old male being seen for end-stage renal disease. The patient denies any nausea, vomiting, or chest pain. OBJECTIVE: CONSTITUTIONAL: The patient is awake and alert. VITAL SIGNS: Afebrile. Pulse 84, breathing 16, and blood pressure 116/88. GENERAL APPEARANCE AND MENTAL STATUS: Fair. HEAD/NECK: Normocephalic. Atraumatic. EYES: EOMI. No deformity. EARS: Clear. No ulcers. NOSE: Intact. No lesions. MOUTH: Clear. No discharge. THROAT: Clear. No exudate. LUNGS: Clear. No crackles. CARDIAC: S1, S2. No rub. ABDOMEN: Benign. Bowel sounds positive. GENITALIA/RECTUM: Caceres absent. BACK/EXTREMITIES: Edema 0+. NEUROLOGICAL: Alert and motor intact. SKIN: LYMPHATICS: LABORATORY DATA: Hemoglobin 9.8. Potassium 4.0. ASSESSMENT AND PLAN: 1. Stage 6 chronic kidney disease, stable. 2. Hypertension, stable. 3. Anemia, stable. 4. Mediations based on GFR are appropriate. 5. Hypocalcemia, use high calcium diet. Job ID: [id number]
--- NOTE | 2018-07-08 13:40 | PDOC.PN ---
- Subjective Encounter Start Date: 07/08/18 Encounter Start Time: 09:40 Pt seen for followup re: acute metabolic encephalopathy. c/o diarrhea. - Objective MAR Reviewed: Yes Vital Signs & Weight: Vital Signs (12 hours) Temp Pulse BP Pulse Ox 07/08/18 09:35 84 116/88 07/08/18 09:09 84 116/88 07/08/18 08:00 98.4 F 100 07/08/18 04:00 98.0 F Weight Weight 2.466 oz Most Recent Monitor Data Heart Rate from ECG 76 NIBP 193/89 NIBP BP-Mean 123 Respiration from ECG 19 SpO2 99 I&O: 07/07/18 07/08/18 07/09/18 06:59 06:59 06:59 Intake Total 580 600 300 Output Total 170 105 20 Balance 410 495 280 Result Diagrams: 07/06/18 11:41 07/07/18 20:01 Additional Labs: Accuchecks 07/08/18 07/07/18 07/07/18 07:29 21:25 18:25 POC Glucose 143 H 158 H 226 H EKG Reviewed by me: Yes (Tele: NSR) Phys Exam - Physical Examination Constitutional: NAD HEENT: moist MMs Neck: supple Respiratory: clear to auscultation bilateral Cardiovascular: RRR Gastrointestinal: soft Neurological: moves all 4 limbs Psychiatric: normal affect Dx/Plan (1) Acute metabolic encephalopathy Code(s): G93.41 - METABOLIC ENCEPHALOPATHY Status: Acute Comment: Improved (2) Diarrhea Code(s): R19.7 - DIARRHEA, UNSPECIFIED Status: Acute Comment: stool studies to r/o C. 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: with petroleum terminal plant operator use Diabetes mellitus complication status: with kidney complications Diabetes mellitus complication detail: with chronic kidney disease Chronic kidney disease stage : on chronic dialysis Qualified Code(s): E11.22 - Type 2 diabetes mellitus with diabetic chronic kidney disease; N18.6 - End stage renal disease; Z79.4 - intermediate frame tender (current) use of insulin; Z99.2 - Dependence on renal dialysis Comment: continue accuchecks, insulin sliding scale (6) Dyslipidemia Code(s): E78.5 - HYPERLIPIDEMIA, UNSPECIFIED Status: Chronic Comment: on statin (7) Hypertension Code(s): I10 - ESSENTIAL (PRIMARY) HYPERTENSION Status: Chronic Comment: continue home medications (8) Hypoglycemia Code(s): E16.2 - HYPOGLYCEMIA, UNSPECIFIED Status: Resolved (9) Hypothermia Code(s): T68.XXXA - HYPOTHERMIA, INITIAL ENCOUNTER Status: Resolved (10) Hypotension Status: Resolved (11) Hyperkalemia Code(s): E87.5 - HYPERKALEMIA Status: Resolved - Plan * . Review of Systems - Review of Systems Cardiovascular: negative: chest pain, palpitations, orthopnea, paroxysmal nocturnal dyspnea, edema, light headedness Gastrointestinal: Diarrhea. negative: Nausea, Vomiting, Abdominal Pain, Constipation, Melena, Hematochezia - Medications/Allergies Allergies/Adverse Reactions: Allergies Allergy/AdvReac Type Severity Reaction Status Date / Time No Known Drug Allergies Allergy Verified 10/13/14 05:30 Medications: Current Medications Alprazolam (Xanax) 0.25 mg PO TIDPRN PRN PRN Reason: Anxiety Last Admin: 07/07/18 21:21 Dose: 0.25 mg Aspirin (Ecotrin) 81 mg PO DAILY [facility] Last Admin: 07/08/18 09:09 Dose: 81 mg Atorvastatin Calcium (Lipitor) 10 mg PO HS [facility] Dextrose/Water (Dextrose 50%) 25 gm IVP PRN PRN PRN Reason: HYPOGLYCEMIA PROTOCOL Glucagon (Glucagon) 1 mg IM PRN PRN PRN Reason: HYPOGLYCEMIA PROTOCOL Hydrocortisone Sodium Succinate (Solu-Cortef) 25 mg IVP BID [facility] Last Admin: 07/08/18 09:09 Dose: 25 mg Hydroxyzine HCl (Atarax) 25 mg PO Q12HR [facility] Last Admin: 07/08/18 09:33 Dose: 25 mg Dextrose/Water (D5w) 1,000 mls @ 0 mls/hr IV INF PRN PRN Reason: HYPOGLYCEMIA PROTOCOL Insulin Human Lispro (Humalog) 0 units SC .MILD SLIDING SCALE PRN; Protocol PRN Reason: MILD SLIDING SCALE Last Admin: 07/07/18 21:25 Dose: 2 unit Labetalol HCl (Normodyne) 100 mg PO Q12HR [facility] Last Admin: 07/08/18 09:09 Dose: 100 mg Nifedipine (Procardia Xl) 90 mg PO DAILY [facility] Last Admin: 07/08/18 09:35 Dose: Not Given Sodium Chloride (Flush - Normal Saline) 10 ml IVF Q12HR [facility] Last Admin: 07/08/18 09:10 Dose: 10 ml Sodium Chloride (Flush - Normal Saline) 10 ml IVF PRN PRN PRN Reason: Saline Flush
[2018-07-08] MEDS ORDERED: Loperamide HCl 2 MG CAP PO PRN (16:34)
[2018-07-08] MEDS ORDERED: NIFEdipine XL 90 MG TAB PO SCH (16:45)
[2018-07-08] MEDS ORDERED: Loperamide HCl 2 MG CAP PO SCH (16:45)
[2018-07-08] MEDS: HumaLOG 300 UNITS/3 ML VIAL SC PRN (19:44)
[2018-07-08 20:27] VITALS: BMI 23.4
[2018-07-08] MEDS ORDERED: Atorvastatin Calcium 10 MG TAB PO SCH (21:00)
[2018-07-09] MEDS: Aspirin 81 mg Enteric Coated Tablet PO SCH (09:11)
[2018-07-09] MEDS: Labetalol 100 MG TAB PO SCH (09:11)
[2018-07-09] MEDS: NIFEdipine XL 90 MG TAB PO SCH (09:11)
[2018-07-09] MEDS: hydrOXYzine 25 MG TAB PO SCH (09:11)
[2018-07-09] MEDS: Hydrocortisone Sod Succ/PF 100 mg/2 ml Vial IVP SCH (09:12)
--- NOTE | 2018-07-09 10:31 | PRG ---
DATE OF SERVICE: 07/09/2018 SUBJECTIVE: This morning, he is awake and alert. No shortness of breath, cough, or chest pain. OBJECTIVE: VITAL SIGNS: Saturations 90% on room air, respirations 18, temperature 97, blood pressure 141/67. CHEST: No wheezing. CARDIAC: Normal S1 and S2. No gallop. ABDOMEN: No masses. IMPRESSION: 1. Hypoglycemia, resolved. 2. Respiratory failure, resolved. 3. Renal failure. 4. Hypertension, improved. DISPOSITION: Home. Pulmonary will follow at a distance. Job ID: [id number]
[2018-07-09 10:37] LABS: #Basophils 0.1 thou/uL (0.0-0.2); #Eosinphils 1.6 thou/uL (0.0-0.7); #Lymphocytes 1.5 thou/uL (1.20-3.40); #Monocytes 0.9 thou/uL (0.11-0.59); #Neutrophils 5.1 thou/uL (1.40-6.50); %Basophils 1.2 % (0.0-1.0); %Eosinophils 17.1 % (0.0-10.0); %Lymphocytes 16.5 % (21.0-51.0); %Monocytes 9.3 % (0.0-10.0); %Neutrophils 55.9 % (42.0-75.0); Hemoglobin 10.2 g/dL (14.0-18.0); Mean Corpuscular HGB CONC 33.7 g/dL (32.0-36.0); Mean Corpuscular Hemoglobin 31.3 pg (27.0-31.0); Mean Corpuscular Volume 92.8 fL (78.0-98.0); Mean Platelet Volume 9.7 fL (7.4-10.4); Platelet Count 132 thou/uL (130-400); RBC Distribution Width 12.9 % (11.5-14.5); Red Blood Cell (RBC) Count 3.26 mill/uL (4.70-6.10); White Blood Cell (WBC) Count 9.1 thou/uL (4.8-10.8)
[2018-07-09 10:55] LABS: Anion Gap 15 mmol/L (10-20); BUN (Urea Nitrogen) 19 mg/dL (8.4-25.7); Calc. Creatinine Clearance 16 mL/min (70-130); Calcium 7.4 mg/dL (7.8-10.44); Carbon Dioxide 27 mmol/L (23-31); Chloride 100 mmol/L (98-107); Estimated GFR-MDRD 15; Glucose 184 mg/dL (80-115); Potassium 3.2 mmol/L (3.5-5.1); Sodium 139 mmol/L (136-145)
[2018-07-09] MEDS ORDERED: Heparin 10,000 UNITS/ 10 ML VIAL ONE (11:00)
[2018-07-09 11:37] VITALS: BP 109/58; TEMP 97.7
[2018-07-09] MEDS ORDERED: Potassium Chloride 20 MEQ TAB PO SCH (12:00)
--- NOTE | 2018-07-09 13:13 | DIS ---
DATE OF ADMISSION: 07/06/2018 DATE OF DISCHARGE: 07/09/2018 PRIMARY CARE PROVIDERS: Familia Russ. DISCHARGE DIAGNOSES: 1. Acute metabolic encephalopathy. 2. Hypoglycemia. 3. Suspected septic shock. 4. Diarrhea. CONDITION OF PATIENT ON THE DAY OF DISCHARGE: Stable. I assessed Mr. Bradford on the day of discharge. He denies any chest pain or shortness of breath. Vital signs are stable. S1 and S2 are heard, regular. Lungs are clear to auscultation bilaterally. DISCHARGE MEDICATIONS: In addition to his home medications as dictated on my history and physical note dated July 06, 2018, he is being discharged home on oral prednisone taper. CONSULTATIONS DURING THIS HOSPITALIZATION: Pulmonology, Dr. Fallon and Nephrology, Dr. Kaminski. HOSPITAL COURSE: Mr. Bradford is a pleasant 67-year-old gentleman, who was admitted to [facility] on July 06, 2018, for hypotension, hypoglycemia, and hypothermia. Please refer to my history and physical note dated July 06, 2018, for further details. He was admitted to the critical care unit. He was treated with intravenous antibiotics. A 2D echocardiogram showed mild concentric left ventricular hypertrophy, left ventricular ejection fraction of 45% to 50%, moderate mitral regurgitation and [id number] tricuspid regurgitation. He also had moderate pulmonic regurgitation. He improved clinically. Antibiotics were discontinued. At the time of this dictation, final urine culture did not show any growth. Preliminary blood cultures are negative, and the patient is advised to follow up with his primary care provider for final blood culture result. He also received stress dose steroids during this hospitalization and is being discharged home on oral prednisone taper. Many thanks for allowing me to participate in your patient's care. Please feel free to contact me with any questions or concerns. On the day of discharge, he has sodium 139; potassium 3.2, which is being replaced; blood urea nitrogen of 19; and creatinine of 3.95. White count is 9100, hemoglobin 10.2, and platelet count 132,000. DISCHARGE DESTINATION: Home. TOTAL AMOUNT OF TIME SPENT COORDINATING THIS DISCHARGE: 32 minutes. Job ID: [id number]
--- NOTE | 2018-07-09 18:44 | PRG ---
DATE OF SERVICE: 07/09/2018 SUBJECTIVE: A 67-year-old male being seen for end-stage renal disease. The patient denies any nausea, vomiting, or chest pain. OBJECTIVE: CONSTITUTIONAL: The patient is awake and alert. VITAL SIGNS: Afebrile. Pulse 70, breathing 16, and blood pressure 109/58. GENERAL APPEARANCE AND MENTAL STATUS: Fair. HEAD/NECK: Normocephalic. Atraumatic. EYES: EOMI. No deformity. EARS: Clear. No ulcers. NOSE: Intact. No lesions. MOUTH: Clear. No discharge. THROAT: Clear. No exudate. LUNGS: Clear. No crackles. CARDIAC: S1, S2. No rub. ABDOMEN: Benign. Bowel sounds positive. GENITALIA/RECTUM: Caceres absent. BACK/EXTREMITIES: Edema 0+. NEUROLOGICAL: Alert and motor intact. SKIN: LYMPHATICS: LABORATORY DATA: Labs show hemoglobin 10.2. ASSESSMENT AND PLAN: 1. Stage 6 chronic kidney disease, stable. 2. Hypertension, stable. 3. Anemia, stable. 4. Mediations based on GFR are appropriate. Job ID: [id number]
--- NOTE | 2018-07-10 01:35 | HP ---
HISTORY OF PRESENT ILLNESS: Wily Bradford is a 67-year-old male patient admitted to this hospitalization and seen by Dr. Kaminski. I have been asked to see him regarding placement of fistula. He had ultrasound vein mapping on previous admission and veins in right arm are superior. The patient will be discharged today and plan fistula next week outpatient regional [facility]. The patient unfortunately had a left antecubital IV placed. This was removed this hospitalization. MEDICATIONS: At home Levemir insulin, aspirin 81 mg a day, Atorvastatin a day, nifedipine, Procardia XL one tab daily, lisinopril daily, labetalol daily, prednisone 20 mg as directed. PAST SURGICAL HISTORY: Cuffed-tunneled hemodialysis catheter right IJ, coronary artery bypass grafting, appendectomy, cataract surgery, and carotid endarterectomy. PAST MEDICAL HISTORY: Coronary artery disease, stable; PAD; diabetes mellitus type 2; hypertension; dyslipidemia; neuropathy; end-stage renal disease, on hemodialysis; right IJ hemodialysis catheter. PHYSICAL EXAMINATION: VITAL SIGNS: 5 feet 4 inches, 136 pounds, 23 BMI, 97.7, 109/58, heart rate 70. HEAD, EARS, EYES, NOSE, AND THROAT: Unremarkable. LUNGS: Clear to auscultation. CARDIAC: Regular rate and rhythm without murmur or gallop. ABDOMEN: Soft and nontender. EXTREMITIES: Unremarkable. Palpable radial pulses. ASSESSMENT AND PLAN: End-stage renal disease. We will plan placement of right arm primary fistula, possible graft. He understands risks and benefits, and consents. We will plan this under regional [facility] anesthesia as an outpatient next week. Job ID: [id number]
--- NOTE | 2018-07-13 05:46 | PQF ---
[employer] Agent Crystal Reports Winform SeferinoMIGUEL ÁNGEL DAVID [id number] [place] [id number] CLINICAL DOCUMENTATION CLARIFICATION FORM: POST DISCHARGE Addendum to original discharge summary date: ____ Late entry note date: __ Please exercise your independent, professional judgment in responding to the clarification form. Clinical indicators are provided on the bottom of this form for your review Please check appropriate box(s) to clarify if the following diagnosis has been ruled in or ruled out: SEPTIC SHOCK (CDI/Coding list diagnosis here) [ ] Ruled in diagnosis [ ] Continue to treat [ ] Resolved [ ] Ruled out diagnosis [ X ] Cannot rule out diagnosis [ ] Other diagnosis [ ] Unable to determine In addition, please specify: Present on Admission (POA): [ X ] Yes [ ] No [ ] Unable to determine For continuity of documentation, please document condition throughout progress notes and discharge summary. Thank You. CLINICAL INDICATORS - SIGNS / SYMPTOMS / LABS -hypothermia- pn 07/07, 07/08 and ED -hypotension- h&p, pn 07/07, 07/08, ED -thrombocytopenia, platelet count 120,000- h&p - repsiratory failure, resolved- pn 07/09 - no ecidence of any sepsis at this stage- pn 07/07 -suspected septic shock- discharge summary - hypotension, etiology unclear, differential diagnosis include cardiogenic shock and septic shock- h&p - lactic acid 2.2 on 07/06 and 7.4 on 07/09 - wbc 7.7 on 07/06 and 9.1 on 07/09 RISK FACTORS - hypoglycemia with diabetes- h&p, progress notes and d/s TREATMENTS -IV antibiotics discountinued- d/s - started on broad spectrum antibiotics- h&p -patient received IV meopenem and vancomycin from 07/06 before it was d/c (This form is maintained as a part of the permanent medical record) 2014 [employer] All Rights Reserved [email or web address] [phone] MTDD
--- NOTE | 2018-07-18 17:06 | EKG ---
Test Reason : Blood Pressure : / mmHG Vent. Rate : 051 BPM Atrial Rate : 051 BPM P-R Int : 152 ms QRS Dur : 080 ms QT Int : 588 ms P-R-T Axes : 061 073 140 degrees QTc Int : 541 ms Sinus bradycardia Elevated QT Delayed precordial trans Abnormal ECG Confirmed by HOLLIS JASSO DO ([id number]), sports editor JAYY ESCAMILLA ([id number]) on 07/18/2018 5:06:20 PM Referred By: Confirmed By:HOLLIS JASSO DO
== END 2018-07-09 17:18 | disposition home or self-care (01) | DRG 871 ==
LOC: ERS 11:18 → CCU 16:43 → 2NO 07-08 20:31
PROVIDERS: ADMIT Internal Medicine; ATTEND Internal Medicine
DX: A41.9 Sepsis, unspecified organism (principal); R65.21 Severe sepsis with septic shock; N18.6 End stage renal disease; G93.41 Metabolic encephalopathy; J96.90 Respiratory failure, unspecified, unspecified whether with hypoxia or hypercapnia; J81.1 Chronic pulmonary edema; I12.0 Hypertensive chronic kidney disease with stage 5 chronic kidney disease or end stage renal disease; I95.9 Hypotension, unspecified; E11.649 Type 2 diabetes mellitus with hypoglycemia without coma; I25.10 Atherosclerotic heart disease of native coronary artery without angina pectoris; E11.51 Type 2 diabetes mellitus with diabetic peripheral angiopathy without gangrene; E11.22 Type 2 diabetes mellitus with diabetic chronic kidney disease; Z99.2 Dependence on renal dialysis; E11.40 Type 2 diabetes mellitus with diabetic neuropathy, unspecified; E87.5 Hyperkalemia; T68.XXXA Hypothermia, initial encounter; M54.9 Dorsalgia, unspecified; G89.29 Other chronic pain; E83.51 Hypocalcemia; Z79.4 Long term (current) use of insulin; Z79.82 Long term (current) use of aspirin; Z95.1 Presence of aortocoronary bypass graft; Z83.3 Family history of diabetes mellitus; Z82.49 Family history of ischemic heart disease and other diseases of the circulatory system
CPT/HCPCS: 36415; 36416; 51702; 70450; 71045; 71275; 72125; 80048; 80053; 80202; 80306; 80307; 81003; 81015; 82533; 82550; 83605; 83690; 83735; 84443; 84484; 85025; 85610; 85730; 87040; 87086; 87324; 87340; 87449; 90935; 93005; 93306; 96361; 96365; 96367; 96372; 96375; G0257; J0131; J1644; J1720; J1956; J2185; J2270; J2354; J2543; J3370; J3490; J7050; J7070; Q9967

== ENCOUNTER 2018-07-23 05:51 | Inpatient (IN) | payer MEDICARE ==
[2018-07-23 06:19] LABS: Hemoglobin 10.9 g/dL (14.0-18.0); Mean Corpuscular HGB CONC 33.6 g/dL (32.0-36.0); Mean Corpuscular Hemoglobin 31.3 pg (27.0-31.0); Mean Corpuscular Volume 93.3 fL (78.0-98.0); Platelet Count 128 thou/uL (130-400); RBC Distribution Width 13.4 % (11.5-14.5); Red Blood Cell (RBC) Count 3.48 mill/uL (4.70-6.10); White Blood Cell (WBC) Count 11.5 thou/uL (4.8-10.8)
[2018-07-23 06:35] LABS: ALT (SGPT) 25 U/L (8-55); AST (SGOT) 23 U/L (5-34); Albumin 4.2 g/dL (3.4-4.8); Alkaline Phosphatase 74 U/L (40-150); Anion Gap 18 mmol/L (10-20); BUN (Urea Nitrogen) 16 mg/dL (8.4-25.7); Bilirubin, Total 0.5 mg/dL (0.2-1.2); Calc. Creatinine Clearance 0 mL/min (70-130); Calcium 8.1 mg/dL (7.8-10.44); Carbon Dioxide 24 mmol/L (23-31); Chloride 99 mmol/L (98-107); Estimated GFR-MDRD 21; Globulin 2.9 g/dL (2.4-3.5); Glucose 75 mg/dL (80-115); Potassium 3.4 mmol/L (3.5-5.1); Protein, Total 7.1 g/dL (5.8-8.1); Sodium 138 mmol/L (136-145)
[2018-07-23 06:51] LABS: Band 1 % (5-11); Hypochromia SLIGHT = 6-15 cells (100X) (0-5/hpf); Lymphocytes 12 % (21-51); MDiff Complete? YES; Monocytes 6 % (0-10); Neutrophil 81 % (42-75); PLT Morphology Comment Appears Adequate
[2018-07-23] MEDS ORDERED: Dextrose 50% Abboject 50 ML SYRINGE ONE (06:51)
[2018-07-23 06:58] LABS: Bilirubin Negative (Negative); Blood, Urine Small (Negative); Clarity CLEAR (Clear); Glucose, Urine (Dipstick) 250 mg/dL (Negative); Leukocyte Negative (Negative); Nitrite Negative (Negative); Protein, Urine (Dipstick) 300 mg/dL (Neg-Trace); Specific Gravity, Urine 1.019 (1.002-1.036); Urobilinogen 0.2 mg/dL (0.2-1.0); pH, Urine 7.5 (5.0-9.0)
[2018-07-23 07:00] LABS: CKMB 9.2 ng/mL (0-6.6)
[2018-07-23 07:00] LABS: Bacteria/HPF None Seen HPF (None Seen); Hyaline Casts/LPF 4-6 HYALINE CAST LPF (0-3 Hyaline); Pathc Cast-AUWi Flag 1.16 (0-2.49); WBC/HPF 0-3 HPF (0-3)
[2018-07-23 07:11] LABS: Renal Epithelial 0-3 HPF (0-3); Transitional Epithelial 0-3 HPF (0-3)
[2018-07-23] MEDS ORDERED: Dextrose 5% in Water 1,000 ML IV PRN (08:04)
[2018-07-23] MEDS ORDERED: Dextrose 50% Abboject 50 ML SYRINGE SLOW IVP PRN (08:04)
[2018-07-23] MEDS ORDERED: Dextrose 5% in Water 1,000 ML IV SCH (08:15)
[2018-07-23 09:25] LABS: Troponin I 0.147 ng/mL (< 0.028)
[2018-07-23] MEDS: Labetalol 100 MG TAB PO SCH ×2 (11:12→20:13)
[2018-07-23] MEDS: NIFEdipine XL 90 MG TAB PO SCH (11:12)
[2018-07-23] MEDS: Lisinopril 10 MG TAB PO SCH (11:12)
--- NOTE | 2018-07-23 12:30 | CON ---
DATE OF CONSULTATION: NEPHROLOGY CONSULT REASON FOR CONSULTATION: End-stage renal disease, on maintenance hemodialysis. HISTORY OF PRESENT ILLNESS: A 68-year-old gentleman admitted to the hospital for hypoglycemia. The patient has had third such episode and is injecting himself with insulin. The patient at this time denies any nausea, vomiting, or chest pain. The patient's potassium was under control . PAST MEDICAL HISTORY: Significant for hypertension, diabetes mellitus, hypoglycemia, coronary artery disease, erectile disorder, peripheral vascular disease, CABG, appendectomy, cataract surgery. HOME MEDICATIONS: Reviewed. HOSPITAL MEDICATIONS: Reviewed. ALLERGIES: REVIEWED. REVIEW OF SYSTEMS: A 15-point review of systems was performed and was negative except for positives noted above. GENERAL: HEAD: NECK: No swelling or lumps. NOSE: No epistaxis or discharge. EYES: No diplopia or pain. RESPIRATORY: CARDIOVASCULAR: GASTROINTESTINAL: /SALES ORDER CLERK: MUSCULOSKELETAL: No joint pain. NEUROPSYCHIATRIC SYSTEMS: No suicidal ideation. No ideation. SKIN: Denies any rash or ulcer. CONSTITUTIONAL: No fever or chills. SOCIAL HISTORY: No alcohol or drug use. FAMILY HISTORY: Negative ESRD. PHYSICAL EXAMINATION: CONSTITUTIONAL: Awake, alert, in no acute distress. VITAL SIGNS: Afebrile. Pulse 75, breathing 16, blood pressure 130/70. GENERAL APPEARANCE AND MENTAL STATUS: Fair. HEAD/NECK: Normocephalic. Atraumatic. EYES: EOMI. No deformity. EARS: Clear. No ulcers. NOSE: Intact. No lesions. MOUTH: Clear. No discharge. THROAT: Clear. No exudate. LUNGS: Clear. No crackles. CARDIAC: S1, S2. No rub. ABDOMEN: Benign. Bowel sounds positive. GENITALIA/RECTUM: Caceres absent. BACK/EXTREMITIES: Edema 0+. NEUROLOGICAL: Alert and motor intact. SKIN: LYMPHATICS: LABORATORY DATA: Show potassium 3.4. ASSESSMENT AND PLAN: 1. Stage 6 chronic kidney disease, continue hemodialysis. 2. Hypertension, stable. 3. Anemia, stable. 4. Medication based on glomerular filtration rate, appropriate, except I would recommend decreasing the dose of insulin to 5 units based on blood sugars, 30 units was excessive. Job ID: [id number]
[2018-07-23 12:56] LABS: Troponin I 0.155 ng/mL (< 0.028)
[2018-07-23 12:59] VITALS: BMI 27.3
[2018-07-23] MEDS: Heparin 5,000 UNITS/ML VIAL SC SCH ×3 (13:00→20:13)
--- NOTE | 2018-07-23 13:32 | HP ---
CHIEF COMPLAINT: Altered mental status. HISTORY OF PRESENT ILLNESS: This patient is a 68-year-old male, who presented to the emergency department. This patient was just recently admitted here for hypoglycemia and hypothermia. At that time, the patient had evaluation for possible infectious etiology, stabilized, and ultimately discharged home on a steroid taper. The patient typically checks his blood sugar in the morning and then again three times throughout the day. He is apparently just on a binary system by which his blood sugar is "high." He gets 30 units of Levemir and if it is normal or low, he gets nothing. The patient has end-stage renal disease and gets dialysis Friday, , and Friday. The patient went to dialysis yesterday. Apparently, prior to dialysis, he had some hypoglycemia. He was given some juice and food by his family and his , who is giving much of the history, indicated that they actually told the dialysis nurses that they were concerned about his hypoglycemia. He apparently did fine through dialysis, came home in the evening, ate, and had his blood sugar checked again, and it was "high." He then received 30 units of Levemir and went to bed. Apparently around 4 to 5 o'clock this morning, the patient was having some difficulty sleeping. According to his , he got up and went to the bathroom and came back to the room and rather than getting back in bed, sat on the couch that was in the room. She did not think anything of this initially and went to sleep, but 30 minutes later, when she got up, she indicated that he appeared to be unconscious and his extremities were contracted. She called her son, who is staying with them and they had a difficult time waking him up and therefore called 911. When the paramedics arrived, Accu-Chek revealed a blood sugar of 23. He was given amp of D50 and rechecked en route, and his blood sugar had come up to 198. In the emergency department, the patient became more responsive, and at one point, became a bit agitated, but is improved now. His most recent blood sugar was 121. Currently, the patient himself states that he feels fine and denies any complaints. His reports that he is not quite back to himself mentally just yet. REVIEW OF SYSTEMS: As best can be obtained are essentially negative. All systems were reviewed and all pertinent positives and negatives were noted in the HPI. Most notably, the patient and his denied that he has had any fevers or chills. PAST MEDICAL HISTORY: Notable for coronary artery disease, peripheral vascular disease, diabetes mellitus type 2, hypertension, dyslipidemia, diabetic neuropathy, erectile dysfunction, end-stage renal disease, on hemodialysis, Friday, , and Friday, followed by Dr. Kaminski, and also chronic diarrhea that sounds like it may be related to the diabetic autonomic dysfunction. PAST SURGICAL HISTORY: Coronary artery bypass graft, appendectomy, cataractectomy, and carotid endarterectomy. SOCIAL HISTORY: The patient is a nonsmoker, nondrinker, and nondrug user. He is . His is his surrogate decision maker and he is a full code. FAMILY HISTORY: Notable for multiple family members with hypertension, diabetes, and coronary artery disease. ALLERGIES: NONE. CURRENT MEDICATIONS: 1. Atorvastatin 10 mg at bedtime. 2. Lisinopril 10 mg daily. 3. Hydroxyzine 25 mg b.i.d. 4. Labetalol 100 mg b.i.d. 5. Nifedipine 90 mg daily. 6. Aspirin 81 mg daily. 7. Lasix 40 mg daily. 8. Trazodone 50 mg at bedtime. 9. Levemir 30 units t.i.d. p.r.n. for high blood sugars. PHYSICAL EXAMINATION: VITAL SIGNS: Initial temperature rectally was 90.4. Most recent set of vital signs; blood pressure 182/84, pulse 64, respirations 24, rectal temp was 90.1, and O2 saturation 97% on room air. GENERAL APPEARANCE: Age-appropriate male. He is in no distress. He is sleeping under a warming blanket. He easily awakens. He is alert and conversant. He does fall asleep again after our conversation. HEENT: PERRL. No OP lesions. NECK: Supple and symmetric without lymphadenopathy, JVD, or bruits. HEART: Regular without murmurs. There is a well-healed midline incisional scar. There is also a right subclavian dialysis catheter present. LUNGS: Clear to auscultation bilaterally with no wheezes or rales. Good air exchange and chest wall expansion. ABDOMEN: Soft, nontender, and nondistended. Positive bowel sounds. No masses. No organomegaly. EXTREMITIES: Warm and dry with no cyanosis, clubbing, or edema. LABORATORY DATA: White count 11.5, hemoglobin 10.9, platelet count 128, 81 neutrophils, 1 band, 2 lymphocytes. Sodium 138, potassium 3.4, chloride 99, CO2 of 24, BUN 16, creatinine 2.99, glucose 75, subsequent 41, most recent 121, total bilirubin 0.5, AST 23, ALT 25, calcium 8.1. Urinalysis; protein, glucose, small blood, 11 to 20 red cells, 0 to 3 white cells. EKG, sinus rhythm with occasional PVCs. Troponin was 0.18. IMPRESSION AND PLAN: 1. Severe hypoglycemia. This patient has a crude insulin regimen, had an episode of what appears to be fairly severe hypoglycemia this morning. The patient has received dextrose and is on D5 now. We will continue with that. Admit the patient to the hospital. Keep him on some D5 and continue to follow his blood sugars closely. We will have p.r.n. dextrose for severe episodes. I suspect the patient is going to need a more finely tuned insulin regimen in order to try to prevent this going forward. I do not see any evidence of infection. 2. Hypothermia. The patient has significant hypothermia based on core body temperatures. 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 I do not believe that the patient is septic and he shows no signs of infection at this time. I will continue with the warming blanket and give him some time. 3. Elevated troponin. The patient has a history of coronary artery disease with bypass grafting. His troponin is elevated. He has no ischemic changes on his EKG. His troponin in the past was never significantly elevated. Therefore, this certainly does represent something of a change. We will go ahead and consult Cardiology, although I suspect this is a type 2 demand type ischemia or type 4 secondary to hypoglycemia. 4. End-stage renal disease, on dialysis. We will consult Nephrology to continue his dialysis regimen in the hospital. 5. Hypertension. We will resume his usual home medications including the lisinopril, labetalol, and nifedipine. 6. Hyperlipidemia. Continue with his atorvastatin. 7. Deep venous thrombosis prophylaxis. Job ID: [id number]
--- NOTE | 2018-07-23 13:41 | CON ---
DATE OF CONSULTATION: 07/23/2018 SERVICE: Pulmonary Medicine. REASON FOR CONSULT: CU patient. HISTORY OF PRESENT ILLNESS: The patient is a 68-year-old male with past medical history significant for end-stage renal disease and diabetes mellitus. He is supposed to be on Levemir. He really does not check his blood sugars. He uses 30 units of Levemir every single evening without fail. He has had multiple admissions to the hospital here over the last 3 months because of hypoglycemia. That being said, he reports to me that he has made no significant adjustments to his insulin over the last 3 months. He denies any current fevers, chills, nausea, or vomiting. He was put in the hospital because of some mental status changes. Once his sugars were corrected, these resolved. On the floor, he was discovered to be hypothermic. His blood sugars dropped off again. He was subsequently escalated to the [facility] for closer observation. Currently, he denies fevers, chills, nausea, vomiting, cough, sputum production, chest pain, palpitations, diarrhea, constipation, dysuria, frequency, hot, red, swollen joints, arthralgias. PAST MEDICAL HISTORY: 1. End-stage renal disease. 2. Type 2 diabetes mellitus. 3. Dyslipidemia. 4. Hypertension. 5. Peripheral vascular disease. 6. Coronary artery disease. 7. Neuropathy secondary to diabetes. 8. Erectile dysfunction. PAST SURGICAL HISTORY: 1. Coronary artery bypass graft. 2. Appendectomy. 3. Cataract surgeries. 4. Carotid endarterectomy. FAMILY HISTORY: Noncontributory. SOCIAL HISTORY: Negative for alcohol, tobacco, or illicit drug use. He has no exposure to chemicals, dust, or asbestos. ALLERGIES: NO KNOWN DRUG ALLERGIES. MEDICATIONS: List of his inpatient medications was reviewed. No specific updates were made at this time. REVIEW OF SYSTEMS: General; head, ears, eyes, nose, and throat; cardiovascular; respiratory; GI; ; musculoskeletal; neurologic; and skin are negative except as mentioned is the HPI. PHYSICAL EXAMINATION: VITAL SIGNS: Afebrile, pulse 90, blood pressure 157/90, respirations 16, and saturation 98% on room air. GENERAL: The patient is awake and alert, in no apparent distress. LUNGS: Excellent air entry. There is no prolonged expiratory phase or wheezing present. HEART: Normal rate, regular. ABDOMEN: Soft, nontender, and nondistended. Bowel sounds are positive. MUSCULOSKELETAL: No cyanosis or clubbing. There is no pitting in bilateral lower extremities. NEUROLOGIC: Grossly nonfocal. LABORATORY DATA: WBC 11.5, hemoglobin 10.9, and platelets 128,000. Glucose ranges from 70 to 87. He remains on the D5 drip. Troponin is downtrending to 0.147. Urinalysis is remarkable for glycosuria, proteinuria, blood, and red blood cells. Vancomycin peak is 12.8. Urine drug screen is otherwise unremarkable. ASSESSMENT: 1. Metabolic encephalopathy, resolved. 2. Hypoglycemia. 3. Type 2 diabetes mellitus. 4. Hypothermia, resolved. DISCUSSION AND PLAN: We will continue supportive measures. He will stay in IMCU until he is off the D5 drip, and his blood sugars remain elevated. He will need to drop the dose of his insulin through time. Of note, his coags, liver function studies, and total bilirubin were previously unremarkable, so the likelihood of hypoglycemias and function of chronic liver diseases are unlikely. Pulmonary will continue to follow along in this location, but once he arrives on the floor, no further requirement per my opinion, and I will sign off. Dr. Fallon has an established relationship with Mr. Bradford and will see him starting tomorrow. 70 minutes have been devoted to this patient in various activities. I personally reviewed all imaging studies and laboratory data noted within this document. For fifty percent of this time, I was interacting with the patient at the bedside or coordinating care with the care team. For the remainder of the time I was immediately available to the patient in the hospital unit. Job ID: [id number] MTDD
[2018-07-23] MEDS: Atorvastatin Calcium 10 MG TAB PO SCH (20:13)
[2018-07-24] MEDS: Zolpidem Tartrate 5 MG TAB PO PRN ×2 (00:27→21:02)
[2018-07-24 05:21] LABS: Anion Gap 15 mmol/L (10-20); BUN (Urea Nitrogen) 25 mg/dL (8.4-25.7); Calc. Creatinine Clearance 15 mL/min (70-130); Calcium 7.3 mg/dL (7.8-10.44); Carbon Dioxide 25 mmol/L (23-31); Chloride 101 mmol/L (98-107); Estimated GFR-MDRD 14; Glucose 112 mg/dL (80-115); Potassium 3.6 mmol/L (3.5-5.1); Sodium 137 mmol/L (136-145)
[2018-07-24 05:43] LABS: Band 1 % (5-11); Eosinophils 8 % (0-10); Hemoglobin 8.9 g/dL (14.0-18.0); Lymphocytes 18 % (21-51); MDiff Complete? YES; Mean Corpuscular HGB CONC 33.7 g/dL (32.0-36.0); Mean Corpuscular Hemoglobin 31.4 pg (27.0-31.0); Mean Corpuscular Volume 93.2 fL (78.0-98.0); Mean Platelet Volume 10.2 fL (7.4-10.4); Monocytes 8 % (0-10); Neutrophil 65 % (42-75); PLT Morphology Comment Appears Decreased; Platelet Count 108 thou/uL (130-400); RBC Distribution Width 13.2 % (11.5-14.5); Red Blood Cell (RBC) Count 2.84 mill/uL (4.70-6.10); White Blood Cell (WBC) Count 7.4 thou/uL (4.8-10.8)
--- NOTE | 2018-07-24 07:03 | PRG ---
DATE OF SERVICE: 07/24/2018 SERVICE: Pulmonary Medicine. INTERVAL HISTORY: The patient is doing great from respiratory standpoint. Denies any current chest pain, fevers, or chills. Overnight, his blood sugar stabilized a little bit. He remained off his D5 drip. He has no specific complaints this morning. Otherwise, there were no interval events. PHYSICAL EXAMINATION: VITAL SIGNS: Currently, afebrile with a T-max of 99.3, pulse 72, blood pressure 139/72, respirations 16, and saturation 100% on room air. GENERAL: The patient is awake and alert, in no apparent distress. LUNGS: Excellent air entry with no prolonged expiratory phase or wheezing. HEART: Normal rate, regular. ABDOMEN: Soft, nontender, and nondistended. Bowel sounds are positive. MUSCULOSKELETAL: No cyanosis or clubbing. No pitting in bilateral lower extremities. NEUROLOGIC: Grossly nonfocal. LABORATORY DATA: WBC 7.4, hemoglobin 8.9, and platelets 108,000 and gently downtrending. Creatinine 4.20. Basic metabolic profile is otherwise unremarkable. Blood sugar is 114 as of this morning. Urinalysis is unremarkable. ASSESSMENT: 1. Metabolic encephalopathy, resolved. 2. Hypoglycemia, iatrogenic, resolved. 3. Type 2 diabetes mellitus. 4. Hypothermia, resolved. DISCUSSION AND PLAN: The patient is stable for transition to the medical unit. When he leaves the [facility], he will have no further requirements for inpatient Pulmonary/Critical Care opinion. As such, at that point, I will sign off. We will continue to monitor for additional signs of sepsis. At this point, however, antibiotics are not indicated. Job ID: [id number]
[2018-07-24] MEDS ORDERED: Heparin 1,000 UNITS/ML VIAL ONE (11:11)
[2018-07-24] MEDS: Heparin 5,000 UNITS/ML VIAL SC SCH ×3 (12:05→21:01)
[2018-07-24] MEDS: Aspirin 81 mg Enteric Coated Tablet PO SCH (13:02)
[2018-07-24] MEDS: NIFEdipine XL 90 MG TAB PO SCH (13:05)
[2018-07-24] MEDS: Labetalol 100 MG TAB PO SCH ×2 (13:05→21:02)
[2018-07-24] MEDS: Lisinopril 10 MG TAB PO SCH (13:05)
--- NOTE | 2018-07-24 17:06 | PDOC.PN ---
- Subjective Encounter Start Date: 07/24/18 Encounter Start Time: 13:00 Doing well. Feels back to baseline. Eating. Ambulating. - Objective Resuscitation Status - Order Detail: 07/23/18 07:59 Resuscitation Status Routine Resuscitation Status: FULL: Full Resuscitation Discussed with: Patient and Vital Signs & Weight: Vital Signs (12 hours) Temp Pulse Resp BP BP Pulse Ox 07/24/18 16:00 98.3 F 71 18 116/72 92 L 07/24/18 13:05 82 179/82 H 07/24/18 12:25 97.4 F L 82 16 179/82 H 100 07/24/18 08:00 98 07/24/18 07:33 98.5 F 74 11 L 155/90 H 99 Weight Weight 139 lb 15.896 oz I&O: 07/23/18 07/24/18 07/25/18 06:59 06:59 06:59 Intake Total 1000 Balance 1000 Result Diagrams: 07/24/18 04:40 07/24/18 04:40 Additional Labs: Accuchecks 07/24/18 07/24/18 07/23/18 04:21 00:01 22:07 POC Glucose 114 H 164 H 199 H 07/23/18 07/23/18 20:09 18:13 POC Glucose 106 130 H Phys Exam - Physical Examination Constitutional: NAD Respiratory: no wheezing, no rales, no rhonchi, clear to auscultation bilateral Cardiovascular: RRR, no significant murmur Gastrointestinal: soft, non-tender, no distention, positive bowel sounds Musculoskeletal: no edema Neurological: non-focal Psychiatric: normal affect Dx/Plan (1) Hypoglycemia associated with type 2 diabetes mellitus Code(s): E11.649 - TYPE 2 DIABETES MELLITUS WITH HYPOGLYCEMIA WITHOUT COMA Status: Acute (2) Acute metabolic encephalopathy Code(s): G93.41 - METABOLIC ENCEPHALOPATHY Status: Resolved Comment: Improved (3) Elevated troponin Code(s): R74.8 - ABNORMAL LEVELS OF OTHER SERUM ENZYMES Status: Acute (4) Diabetes mellitus type 2 in nonobese Code(s): E11.9 - TYPE 2 DIABETES MELLITUS WITHOUT COMPLICATIONS Status: Chronic (5) ESRD on dialysis Code(s): N18.6 - END STAGE RENAL DISEASE; Z99.2 - DEPENDENCE ON RENAL DIALYSIS Status: Chronic Comment: dialysis per nephrology service (6) Hypothermia Code(s): T68.XXXA - HYPOTHERMIA, INITIAL ENCOUNTER Status: Resolved - Plan * Long discussion with patient and his family. * He has been using a glucometer that is old. Not sure if the test strips are not as well. * He is doing well right now with no insulin at all. Not sure he will need any going forward. * Will give him an Rx at discharge for a new monitor and strips. * Will give him a new sliding scale. * Continue to monitor his blood sugars over night. Anticipate discharge in am. * Tolerated HD today with no hypoglycemia. * Noted to be a little unsteady with ambulation. PT consult.
--- NOTE | 2018-07-24 17:43 | PRG ---
DATE OF SERVICE: 07/24/2018 SUBJECTIVE: A 68-year-old gentleman, being seen for end-stage renal disease. The patient denied any nausea, vomiting, or chest pain. OBJECTIVE: CONSTITUTIONAL: The patient is awake and alert. VITAL SIGNS: Pulse 100, breathing 16, and blood pressure 116/72. GENERAL APPEARANCE AND MENTAL STATUS: Fair. HEAD/NECK: Normocephalic. Atraumatic. EYES: EOMI. No deformity. EARS: Clear. No ulcers. NOSE: Intact. No lesions. MOUTH: Clear. No discharge. THROAT: Clear. No exudate. LUNGS: Clear. No crackles. CARDIAC: S1, S2. No rub. ABDOMEN: Benign. Bowel sounds positive. GENITALIA/RECTUM: Caceres absent. BACK/EXTREMITIES: Edema 0+. NEUROLOGICAL: Alert and motor intact. SKIN: LYMPHATICS: LABORATORY DATA: Hemoglobin 8.9. ASSESSMENT AND PLAN: 1. Stage 6 chronic kidney disease. Continue hemodialysis. 2. Hypertension, stable. 3. Anemia, stable. 4. Medication based on GFR appropriate. Job ID: [id number]
[2018-07-24] MEDS: Atorvastatin Calcium 10 MG TAB PO SCH (21:01)
[2018-07-25] MEDS: NIFEdipine XL 90 MG TAB PO SCH (10:03)
[2018-07-25] MEDS: Lisinopril 10 MG TAB PO SCH (10:03)
[2018-07-25] MEDS: Labetalol 100 MG TAB PO SCH (10:03)
[2018-07-25] MEDS: Aspirin 81 mg Enteric Coated Tablet PO SCH (10:03)
[2018-07-25] MEDS: Heparin 5,000 UNITS/ML VIAL SC SCH (10:05)
[2018-07-25 12:14] VITALS: BP 171/80; TEMP 97.7
--- NOTE | 2018-07-25 13:10 | PRG ---
DATE OF SERVICE: 07/25/2018 SUBJECTIVE: A 68-year-old gentleman, being seen for end-stage renal disease. The patient denied any nausea, vomiting, or chest pain. OBJECTIVE: CONSTITUTIONAL: The patient is awake and alert. VITAL SIGNS: Pulse 80, breathing 16, and blood pressure 159/72. GENERAL APPEARANCE AND MENTAL STATUS: Fair. HEAD/NECK: Normocephalic. Atraumatic. EYES: EOMI. No deformity. EARS: Clear. No ulcers. NOSE: Intact. No lesions. MOUTH: Clear. No discharge. THROAT: Clear. No exudate. LUNGS: Clear. No crackles. CARDIAC: S1, S2. No rub. ABDOMEN: Benign. Bowel sounds positive. GENITALIA/RECTUM: Caceres absent. BACK/EXTREMITIES: Edema 0+. NEUROLOGICAL: Alert and motor intact. SKIN: LYMPHATICS: LABORATORY DATA: Hemoglobin 8.9. ASSESSMENT AND PLAN: 1. Stage 6 chronic kidney disease. Continue hemodialysis. 2. Hypertension, stable. 3. Medication based on GFR. Avoid insulin. Job ID: [id number]
--- NOTE | 2018-07-27 11:25 | DIS ---
DATE OF ADMISSION: 07/23/2018 DATE OF DISCHARGE: 07/25/2018 DISCHARGE DIAGNOSES: 1. Severe hypoglycemia. 2. Hypothermia. 3. Acute metabolic encephalopathy. 4. Elevated troponin. 5. Diabetes mellitus. 6. End-stage renal disease, on dialysis. HISTORY OF PRESENT ILLNESS: This patient is a 68-year-old male who presented to the emergency department. The patient has a history of recent admission for hypoglycemia and hypothermia. At that time, the patient had a workup with no evidence of underlying infection or sepsis. The patient, again, awoke on the morning of admission, and got up to the bathroom and subsequently went and sat on a couch rather than getting back in bed. He was found that way by his about 30 minutes later, and he appeared to be somewhat contracted and was not responsive. Ambulance was called and the patient was found to have a blood sugar of 23. He was given glucose and brought to the emergency department where his temperature was 98.4 rectally. The patient received additional glucose and his blood sugar continued to wean a bit. He received a warming blanket and his vital signs stabilized. The patient was subsequently admitted to the [facility]. HOSPITAL COURSE: The patient was continued on dextrose infusion and his body temperature recovered fairly quickly. He was seen in consultation by Nephrology and continued on his dialysis regimen. It was discovered that the patient's blood sugar control regimen essentially consisted of Accu-Cheks 4 times a day; and if it was arbitrarily determined to be high, then the patient would receive 30 units of short-acting insulin; if it was not arbitrarily determined to be high, then he would receive nothing. The patient also apparently had an old glucometer that he was using and is unsure if it was adequately calibrated or the test strips had . The patient remained off all insulin dosing and if his blood sugars generally remains within the normal range over the next 24 hours, although it did start to climb a bit, the patient felt well and was very eager to be discharged. We monitored him through an another cycle of dialysis to ensure that it was not going to profoundly effect his blood sugars again. Once it was clear that his sugars were stable, he was felt to be stable for discharge to home. PHYSICAL EXAMINATION: On the day of discharge, VITAL SIGNS: Temperature was 97.7, pulse 72, respirations 16, O2 saturation 99%, BP 171/80. GENERAL: The patient was awake, alert, oriented, pleasant, cooperative, and ambulating well. HEART: Regular without murmurs. LUNGS: Clear with no wheezes or rales. ABDOMEN: Benign. EXTREMITIES: Warm and dry. DISPOSITION: DIET: The patient will be on carb consistent renal diet. ACTIVITY: His activity is as tolerated. MEDICATIONS: He will be on; 1. Aspirin 81 mg daily. 2. Hydroxyzine one b.i.d. 3. Nifedipine daily. 4. Lisinopril daily. 5. Labetalol b.i.d. 6. Lactinex daily. 7. Atorvastatin daily. 8. He will be on Levemir with a sliding scale for which he will give himself 0 units below 200; 201-250, he will give 6 units; 251-300, 10 units; and over 300, he will give 14 units. FOLLOWUP: The patient is to follow up with Dr. Kaminski from Nephrology. He is to follow up with the [facility] to follow up on his diabetes management. He can return to the hospital should he have any problems prior to that time. Job ID: [id number]
== END 2018-07-25 11:20 | disposition home or self-care (01) | DRG 637 ==
LOC: ERS 05:51 → ERHOLD 07:05 → IMCU/EMU 09:54 → T4-B 07-24 09:34
PROVIDERS: ADMIT Internal Medicine; ATTEND Internal Medicine
PROC: 5A1D70Z Performance of Urinary Filtration, Intermittent, Less than 6 Hours Per Day (ICD-10-PCS; principal; 2018-07-24)
DX: E11.649 Type 2 diabetes mellitus with hypoglycemia without coma (principal); G93.41 Metabolic encephalopathy; I12.0 Hypertensive chronic kidney disease with stage 5 chronic kidney disease or end stage renal disease; E11.22 Type 2 diabetes mellitus with diabetic chronic kidney disease; N18.6 End stage renal disease; Z99.2 Dependence on renal dialysis; I25.10 Atherosclerotic heart disease of native coronary artery without angina pectoris; E11.51 Type 2 diabetes mellitus with diabetic peripheral angiopathy without gangrene; E11.40 Type 2 diabetes mellitus with diabetic neuropathy, unspecified; E78.5 Hyperlipidemia, unspecified; N52.9 Male erectile dysfunction, unspecified; R74.8 Abnormal levels of other serum enzymes; T68.XXXA Hypothermia, initial encounter; D64.9 Anemia, unspecified; Z79.4 Long term (current) use of insulin; Z95.1 Presence of aortocoronary bypass graft; Z83.3 Family history of diabetes mellitus; Z82.49 Family history of ischemic heart disease and other diseases of the circulatory system
CPT/HCPCS: 36415; 36416; 51701; 80048; 80053; 81003; 81015; 82553; 84484; 85025; 93005; 96361; 96374; J1644

== ENCOUNTER 2018-08-07 10:23 | Inpatient (IN) | payer MEDICARE ==
[2018-08-07] MEDS ORDERED: KETAMINE 100 MG/ML (5ML VIAL) ONE ×2 (10:54→11:22)
[2018-08-07] MEDS ORDERED: Rocuronium Bromide 10 MG/ML (10ML VIAL) ONE ×2 (10:54→11:22)
[2018-08-07 11:00] LABS: Actual Bicarbonate (HCO3a) 15.5 mEq/L (22-28); Analyzer IN Cardio ER; Base Excess (BEa) -7.5 mEq/L (-2.0 to +3.0); Calcium, Ionized 0.84 mmol/L (1.12-1.30); Carboxyhemoglobin (COHb) 0.2 gm% (0.0-3.0); O2 Tension (PaO2) 131.7 mmHg (> 80.0); Potassium - ABG Lab 6.12 mmol/L (3.70-5.30)
[2018-08-07 11:01] LABS: CO2 Tension 20.4 mmHg (35.0-45.0); Hemoglobin (Hb) 4.2 g/dL (14.0-18.0); Puncture Site LRA
[2018-08-07] MEDS ORDERED: DOPamine 400 MG/D5W 250 ML 250 ML ONE (11:01)
[2018-08-07 11:08] LABS: #Basophils 0.1 thou/uL (0.0-0.2); #Eosinphils 0.2 thou/uL (0.0-0.7); #Lymphocytes 1.6 thou/uL (1.20-3.40); #Monocytes 0.6 thou/uL (0.11-0.59); #Neutrophils 7.4 thou/uL (1.40-6.50); %Basophils 1.3 % (0.0-1.0); %Eosinophils 1.7 % (0.0-10.0); %Lymphocytes 16.1 % (21.0-51.0); %Monocytes 5.6 % (0.0-10.0); %Neutrophils 75.3 % (42.0-75.0); Hemoglobin 4.4 g/dL (14.0-18.0); Mean Corpuscular HGB CONC 33.9 g/dL (32.0-36.0); Mean Corpuscular Hemoglobin 32.3 pg (27.0-31.0); Mean Platelet Volume 9.7 fL (7.4-10.4); Platelet Count 136 thou/uL (130-400); RBC Distribution Width 13.1 % (11.5-14.5); Red Blood Cell (RBC) Count 1.38 mill/uL (4.70-6.10); White Blood Cell (WBC) Count 9.8 thou/uL (4.8-10.8)
[2018-08-07 11:27] LABS: ALT (SGPT) 13 U/L (8-55); AST (SGOT) 9 U/L (5-34); Albumin 2.4 g/dL (3.4-4.8); Alkaline Phosphatase 35 U/L (40-150); Anion Gap 23 mmol/L (10-20); BUN (Urea Nitrogen) 75 mg/dL (8.4-25.7); Bilirubin, Total 0.3 mg/dL (0.2-1.2); Calc. Creatinine Clearance 0 mL/min (70-130); Calcium 6.6 mg/dL (7.8-10.44); Carbon Dioxide 14 mmol/L (23-31); Chloride 104 mmol/L (98-107); Estimated GFR-MDRD 10; Globulin 1.6 g/dL (2.4-3.5); Glucose 273 mg/dL (80-115); Sodium 134 mmol/L (136-145)
[2018-08-07 11:34] LABS: Potassium 6.6 mmol/L (3.5-5.1)
[2018-08-07 11:42] LABS: CKMB 7.8 ng/mL (0-6.6)
[2018-08-07 11:57] LABS: Actual Bicarbonate (HCO3a) 14.3 mEq/L (22-28); Analyzer IN Cardio ER; Base Excess (BEa) -9.9 mEq/L (-2.0 to +3.0); CO2 Tension 26.2 mmHg (35.0-45.0); Calcium, Ionized 0.87 mmol/L (1.12-1.30); Carboxyhemoglobin (COHb) 0.3 gm% (0.0-3.0); Hemoglobin (Hb) 9.7 g/dL (14.0-18.0); O2 Tension (PaO2) 175.9 mmHg (> 80.0); Potassium - ABG Lab 6.21 mmol/L (3.70-5.30); pH, Arterial 7.36 (7.35-7.45)
[2018-08-07 11:58] LABS: Puncture Site RRA
[2018-08-07 12:07] LABS: Bilirubin Small (Negative); Blood, Urine Negative (Negative); Clarity CLOUDY (Clear); Glucose, Urine (Dipstick) 250 mg/dL (Negative); Leukocyte Small (Negative); Nitrite Negative (Negative); Protein, Urine (Dipstick) 300 mg/dL (Neg-Trace); Specific Gravity, Urine 1.023 (1.002-1.036); Urobilinogen 0.2 mg/dL (0.2-1.0); pH, Urine 5.5 (5.0-9.0)
[2018-08-07 12:09] LABS: Bacteria/HPF 3+ HPF (None Seen); Pathc Cast-AUWi Flag 1.74 (0-2.49); Yeast-AUWi Flag 19.6 (0-25.0)
[2018-08-07 12:19] LABS: Hyaline Casts/LPF NONE SEEN LPF (0-3 Hyaline); Renal Epithelial None Seen HPF (0-3); Transitional Epithelial NONE SEEN HPF (0-3)
--- NOTE | 2018-08-07 12:26 | RAD ---
ONE VIEW CHEST: HISTORY: Hypertension. GI bleed. COMPARISON: 07/06/2018. FINDINGS: Endotracheal tube terminates just beyond the level of the clavicles. Nasogastric tube terminates in the left upper quadrant. Stable right-sided HemoSplit dialysis catheter. Sternotomy wires are noted . Normal cardiac silhouette. The lungs and pleural spaces are clear. No pneumothorax or osseous abnor malities. IMPRESSION: Lines and tubes as above. POS: EL
[2018-08-07] MEDS ORDERED: Insulin Regular 300 UNITS/3 ML VIAL ONE (12:34)
[2018-08-07] MEDS ORDERED: Dextrose 50% Abboject 50 ML SYRINGE ONE (12:34)
[2018-08-07] MEDS ORDERED: Propofol 1,000 MG/100 ML VIAL IV ONE (13:42)
[2018-08-07] MEDS ORDERED: GoLYTELY 4,000 ml Bottle PO SCH (13:45)
[2018-08-07] MEDS ORDERED: Morphine 2 MG/ML SYRINGE ONE (14:10)
[2018-08-07] MEDS ORDERED: Vecuronium 10 MG VIAL ONE (14:42)
[2018-08-07 14:46] LABS: HBSAg Index 0.41 S/CO (0-0.99); Hep B Surf Ag Non-Reactive S/CO (NonReactive)
[2018-08-07] MEDS ORDERED: Heparin 10,000 UNITS/ 10 ML VIAL ONE (15:00)
[2018-08-07] MEDS ORDERED: Acetaminophen 650 MG Suppository PR PRN (15:01)
[2018-08-07] MEDS ORDERED: Ondansetron ODT 4 MG TAB PO PRN (15:01)
[2018-08-07] MEDS ORDERED: Senokot S 8.6-50 MG TAB PO PRN (15:01)
[2018-08-07] MEDS ORDERED: Ondansetron PF 4 MG/2 ML Vial IVP PRN (15:01)
[2018-08-07] MEDS ORDERED: Dextrose 5% in Water 1,000 ML IV PRN (15:01)
[2018-08-07 15:23] LABS: Lactic Acid 2.7 mmol/L (0.5-2.2)
[2018-08-07] MEDS ORDERED: Calcium Chloride 1 GM/10 ML Abboject SYRINGE ONE (15:29)
[2018-08-07] MEDS ORDERED: Propofol BOLUS 1,000 MG/100 ML VIAL IV PRN (15:34)
[2018-08-07] MEDS ORDERED: Lorazepam 2 MG/ML VIAL SLOW IVP PRN (15:34)
[2018-08-07] MEDS ORDERED: Fentanyl BOLUS 250 ML IVPB PRN (15:34)
[2018-08-07] MEDS ORDERED: DISCONTINUE PREVIOUS NARCOTIC PAIN MEDICATIONS AND BENZODIAZEPINES FS SCH (15:34)
[2018-08-07] MEDS ORDERED: fentaNYL Citrate/PF 2,000 MCG in Sodium Chloride 0.9% 60 ML IV SCH (15:34)
[2018-08-07] MEDS ORDERED: Morphine 2 MG/ML SYRINGE SLOW IVP PRN (15:34)
[2018-08-07 15:43] LABS: Anion Gap 16 mmol/L (10-20); BUN (Urea Nitrogen) 54 mg/dL (8.4-25.7); Calc. Creatinine Clearance 18 mL/min (70-130); Calcium 8.1 mg/dL (7.8-10.44); Carbon Dioxide 22 mmol/L (23-31); Chloride 106 mmol/L (98-107); Estimated GFR-MDRD 16; Glucose 161 mg/dL (80-115); Potassium 4.1 mmol/L (3.5-5.1); Sodium 140 mmol/L (136-145)
--- NOTE | 2018-08-07 16:03 | CON ---
DATE OF CONSULTATION: 08/07/2018 REASON FOR CONSULTATION: Hematochezia, hypotension. CONSULTING PHYSICIAN: Zain Ramírez MD HISTORY OF PRESENT ILLNESS: The patient is a 68-year-old male with past medical history of coronary artery disease, peripheral vascular disease. Diabetes with neuropathy, hypertension, hyperlipidemia, erectile dysfunction, chronic diarrhea and end-stage renal disease on hemodialysis, presenting with complaints of hematochezia. The patient was intubated and sedated at the time of the interview, so all information obtained was via chart review. Per chart, the patient had been in his usual state of health until last night when he experienced the acute onset of grossly bloody bowel movements, characterized as bright red blood per rectum present both on the toilet paper and in the toilet. He continued to have approximately 3 to 4 additional grossly bloody bowel movements, but did not seek any healthcare assistance. However, this morning he did continue to have grossly bloody bowel movements as well as increased lethargy, somnolence, and altered mental status that prompted his to bring him to the [facility] ER for evaluation. While in the ER, he was noted to be hypotensive in addition to having bright red blood per rectum. He was subsequently intubated, sedated, and given 2 to 3 units of PRBCs as well as FFP in order to reverse the possible coagulopathy and affect change on his GI bleed. Currently, he is intubated and sedated and unable to answer any additional questions with blood pressure increasing with a systolic blood pressure of being approximately 107 at the time of this physical examination. REVIEW OF SYSTEMS: Additional review of systems questions could not be obtained due to the patient's intubation/sedation status. PAST MEDICAL HISTORY: As per HPI. PAST SURGICAL HISTORY: Cuffed-tunneled hemodialysis catheter right IJ, coronary artery bypass grafting, appendectomy, cataract surgery, and carotid endarterectomy. FAMILY HISTORY: No evidence of GI malignancies. SOCIAL HISTORY: No evidence per chart review of engaging in tobacco, alcohol, or illicit drug use. OUTPATIENT MEDICATIONS: For most recent hospitalization include; 1. Atorvastatin. 2. Lisinopril. 3. Hydroxyzine. 4. Labetalol. 5. Nifedipine. 6. Aspirin. 7. Lasix. 8. Trazodone. 9. Levemir. ALLERGIES: NO KNOWN DRUG ALLERGIES. PHYSICAL EXAMINATION: VITAL SIGNS: Pulse 97, blood pressure 107/57, respiratory rate 12 on mechanical ventilation with oxygen saturation of approximately 100%. GENERAL: The patient was lying in bed, intubated and sedated. HEENT AND NECK: Supple. No JVD or scleral icterus noted. CARDIOVASCULAR: Tachycardic with regular rate and rhythm. RESPIRATORY: Coarse breath sounds heard in all lung bansal consistent with mechanical ventilation. ABDOMEN: Normoactive bowel sounds. Soft. No grimacing to palpation. Mild abdominal tenderness noted. EXTREMITIES: No cyanosis, clubbing, or edema. LABORATORY DATA: CBC with a white blood cell count of 9.8, hemoglobin 4.4, hematocrit 13.1, platelet of 136. Chemistry with a sodium of 134, potassium 6.6, chloride 104, CO2 of 14, BUN 75, creatinine 5.59, glucose 281, AST 9, ALT 13, alkaline phosphatase 35, total bilirubin 0.3, albumin 2.4. IMAGING DATA: Chest x-ray obtained on August 07, 2018 showed endotracheal tube terminating just beyond the level of the clavicles with a nasogastric tube terminating in the left upper quadrant. Sternotomy wires were noted with normal cardiac silhouette. Lung and pleural spaces were clear with no evidence of pneumothorax or osseous abnormalities. ASSESSMENT AND PLAN: The patient is a 68-year-old male with past medical history of coronary artery disease, peripheral vascular disease, diabetes with neuropathy, hypertension, hyperlipidemia, erectile dysfunction, chronic diarrhea, and end-stage renal disease on hemodialysis, presenting with acute lower GI bleed as well as hyperkalemia. Hematochezia/lower GI bleed. The patient is presenting with the acute onset of bright red blood per rectum that was present both on the toilet paper and in the toilet and grossly bloody amounts. This was associated with increased somnolence, lethargy, hypotension and alteration in his mental status indicative of significant blood loss. He has currently been resuscitated with IV fluids as well as FFP and PRBCs, but continues to have a significantly elevated potassium level, which could be further exacerbated by infusion of blood (it is a significant potassium load). Upon review of our records within the GI system, there was no evidence of him having a prior colonoscopy and at this time, the differential could include diverticular bleeding (most likely) arteriovenous malformation, Dieulafoy lesion, stercoral colitis (less likely), inflammatory bowel disease (less likely) and/or GI neoplasm. At this point, the patient needs to be resuscitated further with further stabilization of his potassium level prior to any sort of endoscopic intervention, but the patient is due to be transferred to the MICU to affect that particular change. RECOMMENDATIONS: 1. We would continue to trend H and H and transfuse as necessary to maintain an H and H of 7/21. 2. Continue to monitor clinically for signs of active GI bleeding. 3. We would consult Nephrology Service for more emergent hemodialysis to assist with hyperkalemia. 4. We transferred the patient to the MICU for further level of care. 5. With the NG tube in place, I would start the patient on GoLYTELY with initiation of hemodialysis with a rapid prep protocol administering one gallon of GoLYTELY over the next 3 hours in anticipation for an expedited colonoscopy. 6. We would avoid any anticoagulation medications at this time given the active GI bleed. 7. Further recommendations to follow colonoscopy. We will continue to follow. Please call with any questions. Job ID: [id number]
[2018-08-07 16:08] LABS: Hemoglobin 7.9 g/dL (14.0-18.0)
[2018-08-07] MEDS ORDERED: PROPOFOL 200 MG/20 ML VIAL ONE (16:42)
[2018-08-07] MEDS ORDERED: PHENYLEPHRINE-NS 100 MCG/ML 10 ML SYRINGE ONE (16:42)
--- NOTE | 2018-08-07 17:47 | CON ---
DATE OF CONSULTATION: REASON FOR CONSULTATION: Hyperkalemia. HISTORY AND PHYSICAL: This is a very pleasant 68-year-old gentleman presented to the hospital with altered mental status and hypotensive with severe anemia with a potassium of 7. The patient can give no further history. PAST MEDICAL HISTORY: Significant for hypertension, coronary artery disease, end-stage renal disease, noncompliance, history of CABG, cataract surgery, carotid endarterectomy, tunneled dialysis catheter, AV fistula. FAMILY HISTORY: Negative for ESRD. SOCIAL HISTORY: Reviewed. ALLERGIES: REVIEWED. HOME MEDICATION: List reviewed. REVIEW OF SYSTEM: Unobtainable. PHYSICAL EXAMINATION: See above. CONSTITUTIONAL: The patient is resting. VITAL SIGNS: Afebrile. Pulse 97, breathing 16, blood pressure 107/57. GENERAL APPEARANCE AND MENTAL STATUS: Fair. HEAD/NECK: Normocephalic. Atraumatic. EYES: EOMI. No deformity. EARS: Clear. No ulcers. NOSE: Intact. No lesions. MOUTH: Clear. No discharge. THROAT: Clear. No exudate. LUNGS: Clear. No crackles. CARDIAC: S1, S2. No rub. ABDOMEN: Benign. Bowel sounds positive. GENITALIA/RECTUM: Caceres absent. BACK/EXTREMITIES: Edema 0+. NEUROLOGICAL: The patient is resting. SKIN: LYMPHATICS: LABORATORY DATA: Show potassium 7. Hemoglobin 7.9. ASSESSMENT AND RECOMMENDATION: 1. Stage 6 chronic kidney disease with hyperkalemia, plan dialysis. 2. Anemia, stable. 3. Medication based on glomerular filtration rate, appropriate. Job ID: [id number]
[2018-08-07] MEDS ORDERED: Epoetin (NON-ESRD) 10,000 UNITS/ML VIAL IVP SCH (18:15)
[2018-08-07] MEDS: Propofol 1,000 MG/100 ML VIAL IV PRN (19:23)
[2018-08-07] MEDS ORDERED: Midazolam HCl 2 mg/2 ml Vial ONE (19:55)
--- NOTE | 2018-08-07 20:39 | HP ---
PRIMARY CARE PHYSICIAN: Antwan Bermeo. PRIMARY ONLINE CONTENT COORDINATOR: Dr. Davenport. CHIEF COMPLAINT: Hematochezia. HISTORY OF PRESENT ILLNESS: This is a 68-year-old male with end-stage renal disease, diabetes, and severe hypertension, no history of previous GI bleeding, who presented to the emergency department with brisk bright red blood per rectum. Family reports that starting late last night around 10 o'clock, he started having multiple bloody bowel movements and then just aranza blood from his bottom. This happened multiple times over night and around 4 o'clock this morning, he got so weak that he could not go to the bathroom himself. They sort of had to clean him up in bed and then he stopped responding around 07:30 this morning, so they called an ambulance. When he was brought to the emergency room, the patient was hypotensive and unresponsive. He was having aranza blood from his bottom. He was intubated in the emergency room, had 3 units of packed red blood cells followed by 3 units of FFP transfused and was initially started on dopamine. Dr. Slater, Dr. Roberts, and Dr. Davenport were consulted by the emergency room physician. The patient's potassium was 6.6 in the emergency room. His initial hemoglobin was 4.4, repeat is now pending. His blood pressure has now come up to 120s/90s and the dopamine is being weaned. The plan is to take him to hemodialysis now and then to prep him with an OG tube with GoLYTELY to allow a colonoscopy in the morning to look for source of bleeding. All history taken from the chart and from family, who are in the room, as the patient is sedated on the vent currently. PAST MEDICAL HISTORY: 1. Diabetes mellitus type 2, previously insulin dependent, but has been off insulin since his renal failure and initiation of dialysis 2 months ago. Of note, he did have a high blood sugar this morning and so in the 300, so he was given 30 units of Lantus by his this morning. He has not been taking that since his last hospitalization. 2. Coronary artery disease. 3. Peripheral vascular disease. 4. Hypertension, severely uncontrolled recently, often into the 200s/100 systolic. 5. Dyslipidemia. 6. Diabetic neuropathy. 7. End-stage renal disease, on hemodialysis. 8. Chronic diarrhea. 9. Erectile dysfunction. PAST SURGICAL HISTORY: 1. Coronary artery bypass grafting. 2. Appendectomy. 3. Cataract surgery. 4. Carotid endarterectomy. 5. Temporary hemodialysis catheter placement. SOCIAL HISTORY: The patient does not smoke. Family denies any alcohol or illicit drug use. He is . His was at the bedside, who is his medical decision maker, her name is Agnes Bradford, his daughter also helps in incision making, her name is Tiny Conklin, she is also at the bedside. FAMILY HISTORY: Notable for multiple family members with hypertension, diabetes, and coronary artery disease. ALLERGIES: NO KNOWN DRUG ALLERGIES. CURRENT MEDICATIONS: 1. Aspirin 81 mg daily. 2. Hydroxyzine 25 mg twice a day. 3. Nifedipine 90 mg daily. 4. Lisinopril 10 mg daily. 5. Labetalol 100 mg twice a day. 6. Atorvastatin 10 mg daily. 7. Lasix 40 mg daily. 8. Trazodone 50 mg at night. 9. Levemir sliding scale, some sort, where he gets 0 units below 200s, 6 units from 200 to 250, 10 units from 250 to 300, and 14 units for over 300. REVIEW OF SYSTEMS: Unable to obtain complete review of systems due to the patient's unresponsive status. Family does not know of any other symptoms besides the GI bleeding that he was having and unresponsive this morning. PHYSICAL EXAMINATION: VITAL SIGNS: Blood pressure 132/71, pulse 94, respirations 16 on the vent, temperature 93.7, and O2 saturation 100% on the ventilator. GENERAL: This is a well-developed male, who is unresponsive on the vent, and currently sedated. HEENT: Pupils are reactive to light. Oropharynx with ET tube and OG tube in place. NECK: Without masses or deformity. HEART: Regular rate and rhythm. No murmurs, rubs, or gallops. LUNGS: Clear to auscultation bilaterally on the vent. ABDOMEN: Soft. No masses. Hyperactive bowel sounds. No hepatosplenomegaly. EXTREMITIES: No clubbing, cyanosis, or edema. SKIN: No rashes or lesions noted. NEUROLOGIC: The patient is currently unresponsive on the vent. LABORATORY DATA: CBC with a white blood cell count of 9.8, hemoglobin 4.4, hematocrit 13.1, and platelet count 136. Arterial blood gas most recently, pH of 7.36, pCO2 of 26, and pO2 of 175. Complete metabolic panel with sodium of 134, potassium of 6.6, carbon dioxide 14, anion gap 23, BUN 75, creatinine 5.5, glucose 273, calcium of 6.6, and albumin is 2.4. Initial cardiac marker set with a CK-MB of 7.8 and troponin 0.036, which is actually lower than his most recent check. Lactic acid was elevated at 4.8, glucose recheck at 12:00 was 281. Urinalysis shows lots of protein and glucose, trace ketones, small leukocyte esterase, 4 to 6 white blood cells, 3+ bacteria. IMAGING DATA: Chest x-ray, I did review the chest x-ray done in the emergency room along with the radiologist's report. The lung bansal are clear. Normal heart size. A 7-ET tube and a right temporary hemodialysis catheter in place. EKG, I reviewed the EKG done in the emergency room, it shows normal sinus rhythm with a low-voltage QRS. No peaking of the T-waves or other evidence of potassium toxicity at this point. ASSESSMENT AND PLAN: 1. Acute lower gastrointestinal bleed, likely diverticular. Dr. Roberts has been consulted. We will try to do a prep and then a colonoscopy, if we were able to get the GoLYTELY through him and keep his pressure up enough to get his dialysis and his potassium normalized. 2. Acute blood loss with shock. The patient is markedly improved after 3 units of packed red blood cells and FFP. We will try and wean the dopamine as able. He will get serial H and H's to watch for further bleeding. 3. Respiratory failure, now on the vent. Dr. Slater has been consulted for management of ventilator. 4. End-stage renal disease. Dr. Davenport has been consulted and we will dialyze the patient. 5. Hyperkalemia, likely to be worsened by the gastrointestinal bleeding. Plan is to do dialysis immediately to bring this down. 6. Diabetes mellitus type 2, currently with elevated blood sugars, however, he did take a large dose of Levemir this morning. I will check fingerstick blood sugars q.4 hours, to watch for any significant drop and put him on a light sliding scale. Apparently, his blood sugars have been difficult to control in the past, either are really high or really low. 7. Coronary artery disease, stable. 8. Hypertension. We will hold his blood pressure medicines, but once we have gotten his volume replaced and his bleeding has stopped, he may need reinstitution of those. 9. Gastrointestinal prophylaxis. We will put the patient on IV Protonix. 10. Code status. I did discuss this with the patient's family. He is a full code. His is his medical decision maker and is at the bedside. Job ID: [id number]
--- NOTE | 2018-08-07 20:44 | CON ---
DATE OF CONSULTATION: 08/07/2018 REASON FOR CONSULTATION: Hematochezia, hypertension. CONSULTING PHYSICIAN: LETICIA ENDS HERE Job ID: [id number]
[2018-08-07] MEDS ORDERED: Prevnar 13-Val Conj/PF 0.5 ML SYRINGE IM ONE (21:00)
[2018-08-07] MEDS: Dextrose 50% Abboject 50 ML SYRINGE SLOW IVP PRN (22:34)
--- NOTE | 2018-08-08 01:52 | OP ---
DATE OF PROCEDURE: 08/07/2018 PROCEDURE PERFORMED: Central line placement. INDICATION: Hypotension, gastrointestinal bleed. Right groin was shaved and prepped with chlorhexidine followed by Betadine. Once dried, femoral vein was easily cannulated with an introducer needle. Wire was passed. Needle was withdrawn and a triple-lumen catheter was inserted after a small incision was made with a #11 blade. This was sewn in place x2. All three ports were flushed. Sterile dressing was applied. He tolerated the procedure well. Job ID: [id number] [facility] CENTERJonatan
--- NOTE | 2018-08-08 02:17 | CON ---
DATE OF CONSULTATION: 08/07/2018 HISTORY OF PRESENT ILLNESS: Wily Bradford is a 68-year-old male who started having rectal bleeding yesterday. He put up with it all night then became so weak, he could not get out of bed this morning, so his called an ambulance. He arrived in the emergency room with a hemoglobin of 4 and low blood pressure. He has been volume resuscitated. He is transferred to critical care unit. I recommended an intubation in the emergency room anticipating he would need an endoscopy, and given that he had end-stage renal disease, might develop pulmonary edema with his volume resuscitation. This was done successfully. PAST MEDICAL HISTORY: Remarkable for, 1. Diabetes. 2. History of hypertension. 3. History of coronary artery disease. 4. Peripheral vascular disease. 5. History of lipid disorder. 6. History of peripheral neuropathy. 7. History of chronic diarrhea. 8. History of coronary artery bypass grafting. 9. History of an appendectomy. 10. History of carotid endarterectomy. 11. History of a tunneled dialysis catheter placed on the right. SOCIAL HISTORY: Nonsmoker, nondrinker, nondrug user. ALLERGIES: REPORTED NONE. FAMILY HISTORY: Negative for lung disease at early age. He does have history of hypertension, vascular disease and diabetes in his family. MEDICATIONS: Prior to admission, he is on aspirin, hydroxyzine, nifedipine, lisinopril, labetalol, atorvastatin, Lasix, trazodone, and insulin. REVIEW OF SYSTEMS: 10 point review of systems complted, otherwise not obtainable. PHYSICAL EXAMINATION: GENERAL: He is intubated. VITAL SIGNS: His blood pressure was in the one teens when he arrived in the ICU. Heart rate was in the 60s to 70s, respiratory rate was in the teens. HEENT: Pupils were equal. Sclerae were anicteric. NECK: Supple. He had no lymphadenopathy. LUNGS: Clear anteriorly. HEART: Regular rhythm. S1 and S2 were normal. ABDOMEN: Soft and nontender. EXTREMITIES: Without clubbing, cyanosis, or edema. LABORATORY DATA: White count 7.36, CO2 26, PO2 175. Sodium 140, potassium 4.1, chloride 106, bicarb 22, BUN 54, creatinine 3.75. Potassium was 6.2 on his 1155 hours blood gas. He has been set up for dialysis when he arrived in the Critical Care Unit. IMPRESSION: Gastrointestinal bleed with hypotension, severe blood loss anemia combined with end-stage renal disease. PLAN: Mechanical ventilation, endoscopy as felt to be indicated by Gastroenterology. He has four very small peripheral IVs, so central line will be placed. Critical care time, 40 minutes independent of procedure. Job ID: [id number] MTDD
--- NOTE | 2018-08-08 02:46 | OP ---
DATE OF PROCEDURE: 08/07/2018 INDICATION FOR PROCEDURE: Hematochezia. PROCEDURES PERFORMED: Colonoscopy (diagnostic). DESCRIPTION OF PROCEDURE: After the risks and benefits of the procedure were explained to the patient including risk of bleeding, infection, perforation, reactions to anesthesia, aspiration and/or pain, informed consent was obtained from the patient's surrogate (). Once informed consent was obtained. The patient was taken to the endoscopy suite where continuation of endotracheal tube intubation and sedation was administered via propofol and anesthesia support. Once the patient was placed in the left lateral decubitus position, a digital rectal exam was performed followed by introduction of the standard colonoscope into the rectum and advanced to the terminal ileum with mild difficulty due to angulation within the sigmoid and distal ascending colons. The quality of the prep was good with adequate visualization of the colonic mucosa achieved. The patient tolerated the procedure well with no immediate perioperative complications. Upon completion of the procedure, all equipment was removed from the patient and the patient was taken to PACU in satisfactory condition. FINDINGS: Digital rectal exam normal. COLON FINDINGS: Normal-appearing mucosa was seen within the terminal ileum with no evidence of blood contained within this region. Normal-appearing mucosa was also seen at the ileocecal valve and appendiceal orifice. However, multiple small and large diverticula were seen within the cecum and proximal ascending colon, but upon careful visualization of all the diverticulae within this region, there was no evidence of active bleeding nor was there any high-risk stigmata of bleeding seen as well. Normal-appearing mucosa was then seen in the distal ascending, transverse and descending colons. Scattered small diverticula were then seen in the sigmoid colon again with no evidence of active bleeding. Careful examination was made of all visualized diverticula with no clot or high-risk stigmata seen during this portion of the exam. Normal-appearing mucosa was then seen within the rectum with rectal retroflexion yielding normal findings. However, there was some mild oozing of blood within the rectum in a linear type fashion upon withdrawal of the colonoscope indicative of colonoscope trauma. IMPRESSION: 1. [id number] diverticulosis within the cecum and proximal ascending colon without any evidence of active bleeding nor any evidence of high-risk stigmata of bleeding. 2. Mild sigmoid diverticulosis without any evidence of active bleeding nor any evidence of high-risk stigmata of bleeding. 3. Minimal oozing of blood within the rectum in a linear fashion consistent with colonoscope trauma. The etiology for his hematochezia was not seen during this examination today. RECOMMENDATIONS: 1. We would continue to trend H and H and transfuse as necessary to maintain an H and H of 02/07. 2. Continue to monitor clinically for signs of active GI bleeding. 3. If the patient does exhibit signs of additional hematochezia, we would consider a tagged RBC nuclear scan for localization of the GI bleed (although most likely located within the colon given lack of blood within the terminal ileum). 4. Could also consider CT angiography with embolization, if he continues to have significant GI bleeding. We will keep patient n.p.o. for now while intubated. 5. We will continue to follow. 6. Please call with any additional questions. Job ID: [id number]
[2018-08-08] MEDS: Propofol 1,000 MG/100 ML VIAL IV PRN (03:41)
[2018-08-08 03:46] LABS: Anion Gap 14 mmol/L (10-20); BUN (Urea Nitrogen) 20 mg/dL (8.4-25.7); Calc. Creatinine Clearance 29 mL/min (70-130); Calcium 8.3 mg/dL (7.8-10.44); Carbon Dioxide 26 mmol/L (23-31); Chloride 104 mmol/L (98-107); Estimated GFR-MDRD 28; Sodium 141 mmol/L (136-145)
[2018-08-08 03:55] LABS: #Basophils 0.1 thou/uL (0.0-0.2); #Eosinphils 0.2 thou/uL (0.0-0.7); #Lymphocytes 1.5 thou/uL (1.20-3.40); #Monocytes 0.6 thou/uL (0.11-0.59); #Neutrophils 4.6 thou/uL (1.40-6.50); %Basophils 1.1 % (0.0-1.0); %Eosinophils 3.2 % (0.0-10.0); %Lymphocytes 21.8 % (21.0-51.0); %Monocytes 8.2 % (0.0-10.0); %Neutrophils 65.7 % (42.0-75.0); Hemoglobin 7.9 g/dL (14.0-18.0); Mean Corpuscular HGB CONC 34.1 g/dL (32.0-36.0); Mean Corpuscular Hemoglobin 29.8 pg (27.0-31.0); Mean Corpuscular Volume 87.5 fL (78.0-98.0); Mean Platelet Volume 9.2 fL (7.4-10.4); Platelet Count 91 thou/uL (130-400); Platelet Morphology Comment Appears Decreased; RBC Distribution Width 16.4 % (11.5-14.5); Red Blood Cell (RBC) Count 2.65 mill/uL (4.70-6.10); White Blood Cell (WBC) Count 6.9 thou/uL (4.8-10.8)
[2018-08-08 04:00] LABS: Glucose 27 mg/dL (80-115); Potassium 2.9 mmol/L (3.5-5.1)
[2018-08-08] MEDS: Dextrose 50% Abboject 50 ML SYRINGE SLOW IVP PRN ×2 (04:05→08:42)
[2018-08-08] MEDS ORDERED: Dextrose 5 % And 0.9 % NaCl 1,000 ML IV SCH ×2 (04:45→06:00)
[2018-08-08] MEDS ORDERED: Potassium Chloride 20 MEQ in Premix Bag 1 BAG IVPB SCH (04:45)
[2018-08-08 07:38] LABS: Actual Bicarbonate (HCO3a) 24.3 mEq/L (22-28); Base Excess (BEa) 3.6 mEq/L (-2.0 to +3.0); Carboxyhemoglobin (COHb) 1.5 gm% (0.0-3.0); Hemoglobin (Hb) 8.1 g/dL (14.0-18.0); O2 Tension (PaO2) 133.7 mmHg (> 80.0); Potassium - ABG Lab 3.34 mmol/L (3.70-5.30)
[2018-08-08 08:18] LABS: pH, Arterial 7.64 (7.35-7.45)
[2018-08-08 08:19] LABS: CO2 Tension 23.4 mmHg (35.0-45.0); Puncture Site L.R.
[2018-08-08] MEDS: Pantoprazole 40 MG VIAL IVP SCH (08:37)
[2018-08-08] MEDS: Dextrose 10% in Water 1,000 ML IV SCH (10:30)
[2018-08-08 10:42] LABS: Hemoglobin 7.8 g/dL (14.0-18.0)
[2018-08-08 10:48] LABS: Anion Gap 11 mmol/L (10-20); BUN (Urea Nitrogen) 20 mg/dL (8.4-25.7); Calc. Creatinine Clearance 24 mL/min (70-130); Calcium 7.8 mg/dL (7.8-10.44); Carbon Dioxide 27 mmol/L (23-31); Chloride 102 mmol/L (98-107); Estimated GFR-MDRD 23; Glucose 153 mg/dL (80-115); Potassium 3.5 mmol/L (3.5-5.1); Sodium 136 mmol/L (136-145)
--- NOTE | 2018-08-08 11:23 | PRG ---
DATE OF SERVICE: 08/08/2018 SUBJECTIVE: The patient is seen and examined at bedside. He is intubated and sedated. He had colonoscopy done with negative results for any source of bleeding. OBJECTIVE: VITAL SIGNS: Blood pressure is 117/60, pulse is 79, respiratory rate 16, O2 saturation 100% on the ventilator. HEENT: His pupils are responding to light, sluggish way, but they do. LUNGS: Clear. HEART: S1 and S2 normal. No S3. No S4. ABDOMEN: Soft and nondistended. Bowel sounds sluggish. EXTREMITIES: No clubbing, cyanosis, or edema. NEUROLOGIC: Postponed since the patient is on the sedation. LABORATORY DATA: Labs showed hemoglobin of 7.9, hematocrit 23.1, platelet count is 91,000. ABGs showed pH of 7.64, pCO2 of 23.4, base excess 3.6. Sodium of 141, potassium 2.9, chloride 104, CO2 of 26, BUN 20, creatinine 2.32, glucose 27 to 68. Microbiology, two blood cultures negative. IMPRESSION: 1. Acute lower gastrointestinal bleed with hypotension. 2. Acute blood loss with shock. 3. Anemia. 4. Respiratory failure. 5. End-stage renal disease. 6. Hypokalemia, status post hyperkalemia and status post hemodialysis yesterday. 7. Diabetes mellitus with hypoglycemic episodes this morning. 8. Coronary artery disease, stable. 9. Hypertension per history. PLAN: The patient is going to have 40 mEq of KCl IV piggyback. He had one amp of D50 for his hypoglycemia. We will check his glucose every 4 hours. We will keep him on D10 at 35 mL/h. We will have hemoglobin and hematocrit every 4 hours. Apparently, colonoscopy was negative for any acute GI bleeding. He is hemodynamically much better now, more stable. We will continue current regimen. Job ID: [id number]
--- NOTE | 2018-08-08 12:30 | PRG ---
DATE OF SERVICE: 08/08/2018 SUBJECTIVE: A 68-year-old gentleman being seen for end-stage renal disease. The patient remains intubated. OBJECTIVE: CONSTITUTIONAL: On examination, the patient is resting. VITAL SIGNS: Afebrile. Pulse 63, breathing 16, blood pressure 147/64. GENERAL APPEARANCE AND MENTAL STATUS: Fair. HEAD/NECK: Normocephalic. Atraumatic. EYES: EOMI. No deformity. EARS: Clear. No ulcers. NOSE: Intact. No lesions. MOUTH: Clear. No discharge. THROAT: Clear. No exudate. LUNGS: Clear. No crackles. CARDIAC: S1, S2. No rub. ABDOMEN: Benign. Bowel sounds positive. GENITALIA/RECTUM: Caceres absent. BACK/EXTREMITIES: Edema 0+. NEUROLOGICAL: Alert and motor intact. LABORATORY DATA: Labs show hemoglobin of 7.8. Potassium 6.5. ASSESSMENT AND PLAN: 1. Stage 6 chronic kidney disease. No indication for dialysis. 2. Hypertension, stable. 3. Anemia, stable. 4. Medications based on glomerular filtration rate are appropriate. Job ID: [id number]
[2018-08-08] MEDS ORDERED: Potassium Chloride 20 MEQ TAB PO SCH (17:45)
--- NOTE | 2018-08-08 23:59 | PRG ---
DATE OF SERVICE: 08/08/2018 SUBJECTIVE: Mr. Bradford has no clinical evidence of ongoing bleeding. His lower endoscopy was negative. He did not have upper endoscopy. OBJECTIVE: VITAL SIGNS: His heart rate is in 80s. Blood pressure 143/57, respiratory rate is 13, and oximetry is 98%. LUNGS: Clear. HEART: Regular rhythm. ABDOMEN: Soft and nontender. EXTREMITIES: Without asymmetry. NEUROLOGIC: He awakened easily when sedation was held and moved all his extremities. He passed a leak test. His minute volume was 8 L a minute. His intake and output were 2965 positive yesterday. LABORATORY DATA: Hemoglobin has been stable just under 8 g, white count 6.9, and platelets 91,000. Electrolytes are normal. Creatinine is 2.78. IMPRESSION: Massive gastrointestinal bleeding, clinically resolved with an unclear source. I felt he was a candidate for extubation earlier today. His blood gas showed a pH of 7.64, CO2 of 23, pO2 of 133. He successfully had been extubated, had no postextubation stridor or respiratory distress. Critical care time, 40 minutes. Job ID: [id number] MTDD
[2018-08-09] MEDS: Dextrose 10% in Water 1,000 ML IV SCH (01:27)
--- NOTE | 2018-08-09 02:26 | PRG ---
DATE OF SERVICE: 08/08/2018 REASON FOR CONSULTATION: Hematochezia. SUBJECTIVE: Overnight the patient did not experience any acute events or problems. Today, he did not experience any additional episodes of hematochezia that brought him on admission. Currently states that he is doing well without any nausea, vomiting, fevers, chills, abdominal pain, GI bleeding, diarrhea, or constipation. The patient has not had a bowel movement since the procedure yesterday. OBJECTIVE: VITAL SIGNS: Temperature 98.7, pulse 86, blood pressure 156/74, respiratory rate 17, saturating 97% on room air. GENERAL: The patient was lying in bed, in no acute distress. Alert and oriented x4. CARDIOVASCULAR: Regular rate and rhythm. RESPIRATORY: Clear to auscultation bilaterally. ABDOMEN: Normoactive bowel sounds. Soft, nontender, nondistended. EXTREMITIES: There is no cyanosis, clubbing, or edema. LABORATORY DATA: CBC with a white blood cell count of 6.9, hemoglobin 7.9, hematocrit 23.1, and platelets 91. Chemistry with a sodium of 141, potassium 2.9, chloride 104, CO2 of 26, BUN 20, creatinine 2.32, glucose 27. IMAGING DATA: The patient underwent colonoscopy on 08/07/2018 with findings of right-sided diverticulosis, but no overt GI bleeding. ASSESSMENT AND PLAN: The patient is a 68-year-old male with past medical history of coronary artery disease, peripheral vascular disease, diabetes with neuropathy, hypertension, hyperlipidemia, erectile dysfunction, chronic diarrhea, and end-stage renal disease on hemodialysis, presenting with acute lower gastrointestinal bleeding as well as hyperkalemia. Lower gastrointestinal bleed. The patient initially presented with acute onset of bright red blood per rectum as well as associated hypotension and alteration in mental status that were possibly indicative of significant blood loss. He was resuscitated with blood products and IV fluids with urgent colonoscopy performed on 08/07/2018, which showed significant diverticular disease within the right colon and sigmoid colon, but did not reveal any obvious source of gastrointestinal bleeding. At this time, the more likely reason for his bleeding would be diverticular given the amount of blood loss in the presence of diverticulosis, even though a specific diverticula was not identified as the source of bleeding. RECOMMENDATIONS: 1. Would continue to trend H and H and transfuse as necessary to maintain an H and H of 7/21. 2. Continue to monitor clinically for signs of active GI bleeding. 3. Would advance the patient's diet as tolerated given lack of evidence of further gastrointestinal bleeding over the first 24 hours. 4. Would continue to hold any anticoagulation medications at this time given recent GI bleed. 5. If the patient does exhibit additional hematochezia, we would consider either a tagged red cell scan or CT angiography for further localization. We will continue to follow. Please call with any questions. Job ID: [id number]
[2018-08-09 04:02] LABS: Hemoglobin 7.7 g/dL (14.0-18.0)
[2018-08-09 04:20] LABS: Anion Gap 14 mmol/L (10-20); BUN (Urea Nitrogen) 20 mg/dL (8.4-25.7); Calc. Creatinine Clearance 18 mL/min (70-130); Calcium 7.8 mg/dL (7.8-10.44); Carbon Dioxide 25 mmol/L (23-31); Chloride 103 mmol/L (98-107); Estimated GFR-MDRD 16; Glucose 115 mg/dL (80-115); Potassium 3.9 mmol/L (3.5-5.1); Sodium 138 mmol/L (136-145)
--- NOTE | 2018-08-09 09:52 | PDOC.PN ---
- Subjective Encounter Start Date: 08/09/18 Encounter Start Time: 09:51 Subjective: Seen and examined --extubated doing ok - Objective Resuscitation Status - Order Detail: 08/07/18 12:51 Resuscitation Status Routine Resuscitation Status: FULL: Full Resuscitation Discussed with: and daughter Vital Signs & Weight: Vital Signs (12 hours) Temp Pulse Ox 08/09/18 08:00 98.5 F 08/09/18 04:00 98.1 F 08/09/18 02:38 96 08/09/18 00:00 98.7 F Weight Admit Weight 145 lb 11.609 oz Weight 150 lb 4.8 oz Most Recent Monitor Data Heart Rate from ECG 92 NIBP 126/103 NIBP BP-Mean 110 Respiration from ECG 13 SpO2 91 I&O: 08/08/18 08/09/18 08/10/18 06:59 06:59 06:59 Intake Total 3220 1249.4 Output Total 255 135 Balance 2965 1114.4 Result Diagrams: 08/09/18 03:20 08/09/18 03:20 Additional Labs: Accuchecks 08/09/18 08/09/18 08/08/18 08:08 01:37 21:00 POC Glucose 122 H 116 H 94 08/08/18 08/08/18 08/08/18 16:23 13:15 10:21 POC Glucose 97 106 148 H Phys Exam - Physical Examination Constitutional: NAD HEENT: PERRLA, moist MMs, sclera anicteric Neck: no nodes, no JVD, supple, full ROM Respiratory: no wheezing, no rales, no rhonchi, clear to auscultation bilateral Cardiovascular: RRR, no significant murmur, no rub Gastrointestinal: soft, non-tender, no distention, positive bowel sounds Musculoskeletal: no edema, pulses present Dx/Plan (1) GI bleed Code(s): K92.2 - GASTROINTESTINAL HEMORRHAGE, UNSPECIFIED Status: Acute (2) Anemia Code(s): D64.9 - ANEMIA, UNSPECIFIED Status: Acute (3) Hypokalemia Code(s): E87.6 - HYPOKALEMIA Status: Acute (4) Diabetes type 2, controlled Code(s): E11.9 - TYPE 2 DIABETES MELLITUS WITHOUT COMPLICATIONS Status: Chronic Qualifiers: Comment: continue accuchecks, insulin sliding scale (5) ESRD on dialysis Code(s): N18.6 - END STAGE RENAL DISEASE; Z99.2 - DEPENDENCE ON RENAL DIALYSIS Status: Chronic Comment: dialysis per nephrology service (6) Hypertension Code(s): I10 - ESSENTIAL (PRIMARY) HYPERTENSION Status: Chronic Comment: continue home medications - Plan PT/OT, rn social services, respiratory therapy Monitor Hemoglobin closely -: Advance diet per GI -: Dialysis per Renal * .
[2018-08-09] MEDS: Pantoprazole 40 MG VIAL IVP SCH (10:12)
--- NOTE | 2018-08-09 10:33 | PRG ---
DATE OF SERVICE: 08/09/2018 SUBJECTIVE: A 68-year-old gentleman being seen for end-stage renal disease. The patient denies any nausea, vomiting, or chest pain. OBJECTIVE: CONSTITUTIONAL: On examination, the patient is awake and alert. VITAL SIGNS: Afebrile, pulse 75, breathing 16, and blood pressure . GENERAL APPEARANCE AND MENTAL STATUS: Fair. HEAD/NECK: Normocephalic. Atraumatic. EYES: EOMI. No deformity. EARS: Clear. No ulcers. NOSE: Intact. No lesions. MOUTH: Clear. No discharge. THROAT: Clear. No exudate. LUNGS: Clear. No crackles. CARDIAC: S1, S2. No rub. ABDOMEN: Benign. Bowel sounds positive. GENITALIA/RECTUM: Caceres absent. BACK/EXTREMITIES: Edema 0+. NEUROLOGICAL: Alert and motor intact. SKIN: LYMPHATICS: LABORATORY DATA: Labs showed hemoglobin 7.7. ASSESSMENT: Stage 6 chronic kidney disease, stable. Hypertension, stable. Anemia, stable. PLAN: Dialysis tomorrow. Job ID: [id number]
--- NOTE | 2018-08-09 11:08 | PRG ---
DATE OF SERVICE: 08/09/2018 SUBJECTIVE: Wily Bradford is awake, alert, in no distress, postextubation yesterday. He has had no more bleeding. OBJECTIVE: VITAL SIGNS: Heart rate 73, blood pressure 126/103, 167/76 earlier, respiratory rate 16, and oximetry is 91 to 93. LUNGS: Clear. HEART: Regular rhythm. S1 and S2 normal. ABDOMEN: Soft and nontender. EXTREMITIES: Without asymmetry or edema. LABORATORY DATA: Hemoglobin stable at 7.7. Electrolytes are normal. Creatinine is 3.77. IMPRESSION AND PLAN: 1. Diverticular bleed. I talked to Dr. Roberts this morning. He said he was able to get the colonoscope all the way into the terminal ileum and there is no blood in the ileum. a. He has had no rebleeding. I met with the and answered all of her questions. 2. End-stage renal disease. I have again emphasized the importance of coming to the hospital if he has a repeat bleed at a later date, still awaiting for 24-hours. I explained to the family that he almost . He is medically stable to move out of the critical care unit to the medical floor. Hopefully, will be stable to go home in 24 to 48 hours. Nephrology continues to follow him. Job ID: [id number]
[2018-08-09] MEDS ORDERED: Labetalol HCl 100 MG/20 ML VIAL SLOW IVP PRN (17:53)
[2018-08-09] MEDS ORDERED: Lisinopril 10 MG TAB PO SCH (18:00)
[2018-08-09] MEDS: Labetalol 100 MG TAB PO SCH (20:43)
[2018-08-09] MEDS: hydrOXYzine 25 MG TAB PO SCH (20:44)
[2018-08-09] MEDS: Acetaminophen 325 MG TAB PO PRN (20:45)
--- NOTE | 2018-08-09 23:25 | PRG ---
DATE OF SERVICE: 08/09/2018 REASON FOR CONSULTATION: Hematochezia. SUBJECTIVE: The patient did well overnight with no further events or acute problems. He has not experienced any episodes of hematochezia since a colonoscopy approximately 24 to 48 hours ago. Currently states that he is doing well without any nausea, vomiting, fevers, chills, abdominal pain, or GI bleeding. OBJECTIVE: VITAL SIGNS: Temperature 100, pulse 90, blood pressure 157/79, respiratory rate 17, saturating 96% on room air. GENERAL: The patient is lying in bed, in no acute distress. Alert and oriented x4. CARDIOVASCULAR: Regular rate and rhythm. RESPIRATORY: Clear to auscultation bilaterally. ABDOMEN: Normoactive bowel sounds. Soft, nontender, nondistended. EXTREMITIES: No cyanosis, clubbing, or edema. LABORATORY DATA: CBC with a hemoglobin of 7.7 and hematocrit 22.4. Chemistry with a sodium of 138, potassium 3.9, chloride 103, CO2 of 25, BUN 20, creatinine 3.77, and glucose 115. IMAGING DATA: No current GI imaging is available for review. ASSESSMENT AND PLAN: The patient is a 68-year-old male with past medical history of coronary artery disease, peripheral vascular disease, diabetes with neuropathy, hypertension, hyperlipidemia, erectile dysfunction, chronic diarrhea, and end-stage renal disease on hemodialysis, presenting with acute lower GI bleed. Lower GI bleeding. The patient initially presented with acute onset of bright red blood per rectum associated with hypotension and altered mental status. After resuscitation, the patient ultimately underwent colonoscopy on August 07, 2018, which showed significant diverticular disease within the right colon and sigmoid colon did not reveal any obvious source of GI bleeding. He is now approximately 24 to 48 hours post colonoscopy and has not exhibited any further signs of hematochezia nor any hemodynamic instability indicative of active GI bleeding. RECOMMENDATIONS: 1. We would continue to trend H and H and transfuse as necessary to maintain an H and H of 7/21. 2. Continue to monitor clinically for signs of active GI bleeding. 3. We would advance the patient's diet as tolerated given lack of evidence of further GI bleeding. 4. We will continue to hold any anticoagulation medications. Given the lack of GI bleeding at this time and no hemodynamic instability, we will sign off. Please call with any additional questions or changes in patient's status. Job ID: [id number]
[2018-08-10] MEDS: Lisinopril 10 MG TAB PO SCH (09:31)
[2018-08-10] MEDS: Labetalol 100 MG TAB PO SCH ×2 (09:31→21:34)
[2018-08-10] MEDS: hydrOXYzine 25 MG TAB PO SCH ×2 (09:32→21:35)
[2018-08-10] MEDS: NIFEdipine XL 90 MG TAB PO SCH (09:32)
[2018-08-10] MEDS: Atorvastatin Calcium 10 MG TAB PO SCH (09:32)
[2018-08-10] MEDS: Pantoprazole 40 MG VIAL IVP SCH (09:32)
--- NOTE | 2018-08-10 14:24 | PRG ---
DATE OF SERVICE: 08/10/2018 SUBJECTIVE: Mr. Bradford has no complaints. He is doing well. He says he is feeling fine. He denies abdominal pain. OBJECTIVE: VITAL SIGNS: He is afebrile. Heart rate in the 70s, respiratory rate 16, oximetry 92 on room air, and blood pressure 114/71. LUNGS: Clear. HEART: Regular rate and rhythm. ABDOMEN: Soft. IMPRESSION: Status post GI bleed, it was felt to be diverticular. Clinically, doing well. His hemoglobin is stable yesterday at 7.7. There is no hemoglobin today. We will sign off. Job ID: [id number]
[2018-08-10] MEDS ORDERED: Prevnar 13-Val Conj/PF 0.5 ML SYRINGE IM ONE (17:00)
--- NOTE | 2018-08-10 17:57 | PRG ---
DATE OF SERVICE: 08/10/2018 SUBJECTIVE: Patient was seen and examined at bedside and overnight events noted. Patient denies any shortness of breath or chest pain or palpitation. No history of nausea or vomiting or diarrhea or fever or chills or cramps. OBJECTIVE: GENERAL: This is a well-built male, in no apparent distress. VITAL SIGNS: Temperature 99.0, heart rate 77, respiratory rate 18, blood pressure 114/71. HEENT: Atraumatic, normocephalic. Oral mucosa is moist NECK: Supple. CARDIOVASCULAR: S1, S2 heard. Rate and rhythm regular. RESPIRATORY: Clear to auscultation. GASTROINTESTINAL: Abdomen is soft. MUSCULOSKELETAL: No tenderness. No edema. DERMATOLOGIC: No skin rash. NEUROLOGIC: Alert and awake and oriented X3. No focal neurologic deficits. Moving all the extremities. PSYCHIATRIC: Mood and affect normal. LABORATORY DATA: None today. ASSESSMENT: 1. End-stage renal disease, currently on hemodialysis. 2. Hypertension. 3. Anemia. 4. Edema. PLAN: Continue dialysis Friday, Friday, and Friday as tolerated. Job ID: [id number]
[2018-08-10] MEDS ORDERED: Cepastat Lozenges 1 LOZ PO PRN (19:17)
--- NOTE | 2018-08-10 22:08 | PDOC.PN ---
- Subjective Encounter Start Date: 08/10/18 Encounter Start Time: 22:07 Subjective: Seems confused s/p dialysis - Objective Resuscitation Status - Order Detail: 08/07/18 12:51 Resuscitation Status Routine Resuscitation Status: FULL: Full Resuscitation Discussed with: and daughter Vital Signs & Weight: Vital Signs (12 hours) Temp Pulse Resp BP BP Pulse Ox 08/10/18 21:34 76 108/69 08/10/18 20:15 98.8 F 76 16 108/69 94 L 08/10/18 18:15 98.6 F 72 16 108/72 95 08/10/18 12:01 78 16 92 L 08/10/18 11:35 99.0 F 77 18 114/71 Weight Admit Weight 145 lb 11.609 oz Weight 147 lb 3.2 oz Most Recent Monitor Data Heart Rate from ECG 88 NIBP 175/88 NIBP BP-Mean 117 Respiration from ECG 18 SpO2 93 I&O: 08/09/18 08/10/18 08/11/18 06:59 06:59 06:59 Intake Total 1249.4 738 240 Output Total 135 200 100 Balance 1114.4 538 140 Result Diagrams: 08/09/18 03:20 08/09/18 03:20 Additional Labs: Accuchecks 08/10/18 08/10/18 08/10/18 21:47 18:21 11:38 POC Glucose 193 H 109 150 H 08/10/18 08/10/18 05:12 00:07 POC Glucose 106 109 Phys Exam - Physical Examination Constitutional: NAD HEENT: PERRLA, moist MMs, sclera anicteric, TM's clear Neck: no nodes, no JVD, supple, full ROM Respiratory: no wheezing, no rales, no rhonchi, clear to auscultation bilateral Cardiovascular: RRR, no significant murmur, no rub Gastrointestinal: soft, non-tender, no distention, positive bowel sounds Musculoskeletal: no edema, pulses present lethargic/confused Dx/Plan (1) GI bleed Code(s): K92.2 - GASTROINTESTINAL HEMORRHAGE, UNSPECIFIED Status: Acute (2) Anemia Code(s): D64.9 - ANEMIA, UNSPECIFIED Status: Acute (3) Hypokalemia Code(s): E87.6 - HYPOKALEMIA Status: Acute (4) Diabetes type 2, controlled Code(s): E11.9 - TYPE 2 DIABETES MELLITUS WITHOUT COMPLICATIONS Status: Chronic Qualifiers: Comment: continue accuchecks, insulin sliding scale (5) ESRD on dialysis Code(s): N18.6 - END STAGE RENAL DISEASE; Z99.2 - DEPENDENCE ON RENAL DIALYSIS Status: Chronic Comment: dialysis per nephrology service (6) Hypertension Code(s): I10 - ESSENTIAL (PRIMARY) HYPERTENSION Status: Chronic Comment: continue home medications - Plan plan discussed w/ family, PT/OT, social media community manager Monitor H/H -: Advance diet prn -: Defer to Renal service regarding mental status change s/p dialysis * .
[2018-08-11 07:09] LABS: #Basophils 0.1 thou/uL (0.0-0.2); #Eosinphils 0.2 thou/uL (0.0-0.7); #Lymphocytes 0.7 thou/uL (1.20-3.40); #Monocytes 0.7 thou/uL (0.11-0.59); %Basophils 0.5 % (0.0-1.0); %Eosinophils 1.8 % (0.0-10.0); %Lymphocytes 6.9 % (21.0-51.0); %Monocytes 6.3 % (0.0-10.0); %Neutrophils 84.6 % (42.0-75.0); Hemoglobin 7.7 g/dL (14.0-18.0); Mean Corpuscular HGB CONC 33.7 g/dL (32.0-36.0); Mean Corpuscular Hemoglobin 30.8 pg (27.0-31.0); Mean Corpuscular Volume 91.4 fL (78.0-98.0); Mean Platelet Volume 9.3 fL (7.4-10.4); Platelet Count 153 thou/uL (130-400); RBC Distribution Width 16.1 % (11.5-14.5); Red Blood Cell (RBC) Count 2.48 mill/uL (4.70-6.10); White Blood Cell (WBC) Count 10.7 thou/uL (4.8-10.8)
[2018-08-11] MEDS: Labetalol 100 MG TAB PO SCH ×2 (08:54→20:56)
[2018-08-11] MEDS: Pantoprazole 40 MG VIAL IVP SCH (08:54)
[2018-08-11] MEDS: hydrOXYzine 25 MG TAB PO SCH ×2 (08:54→20:56)
[2018-08-11] MEDS: Atorvastatin Calcium 10 MG TAB PO SCH (08:54)
[2018-08-11] MEDS: Lisinopril 10 MG TAB PO SCH (08:55)
[2018-08-11] MEDS: NIFEdipine XL 90 MG TAB PO SCH (08:55)
[2018-08-11 10:20] VITALS: BMI 23.0
--- NOTE | 2018-08-11 12:20 | PDOC.PN ---
- Subjective Encounter Start Date: 08/11/18 Encounter Start Time: 12:18 Subjective: acute confusion, disprientation post HD yesterday, now grossly orientd - Objective Resuscitation Status - Order Detail: 08/07/18 12:51 Resuscitation Status Routine Resuscitation Status: FULL: Full Resuscitation Discussed with: and daughter ANN Reviewed: Yes Vital Signs & Weight: Vital Signs (12 hours) Temp Pulse Resp BP BP Pulse Ox 08/11/18 08:55 74 128/67 08/11/18 08:54 77 128/67 08/11/18 07:39 98.5 F 74 18 128/67 97 08/11/18 04:49 98.3 F 77 20 131/71 96 08/11/18 00:40 99.4 F 76 12 120/69 95 Weight Admit Weight 145 lb 11.609 oz Weight 147 lb 3.2 oz Most Recent Monitor Data Heart Rate from ECG 88 NIBP 175/88 NIBP BP-Mean 117 Respiration from ECG 18 SpO2 93 I&O: 08/10/18 08/11/18 08/12/18 06:59 06:59 06:59 Intake Total 738 440 Output Total 200 125 Balance 538 315 Result Diagrams: 08/11/18 06:39 08/09/18 03:20 Additional Labs: Accuchecks 08/11/18 08/11/18 08/11/18 11:43 04:41 00:43 POC Glucose 260 H 156 H 172 H 08/10/18 08/10/18 21:47 18:21 POC Glucose 193 H 109 Phys Exam - Physical Examination Neck: no JVD Respiratory: clear to auscultation bilateral Cardiovascular: RRR, no significant murmur Gastrointestinal: soft, positive bowel sounds Musculoskeletal: no edema Dx/Plan (1) Anemia Code(s): D64.9 - ANEMIA, UNSPECIFIED Status: Acute Qualifiers: Other causes of anemia: acute posthemorrhagic (2) CAD (coronary artery disease) Code(s): I25.10 - ATHSCL HEART DISEASE OF [place] CORONARY ARTERY W/O ANG PCTRS Status: Chronic Qualifiers: Coronary Disease-Associated Artery/Lesion type: bypass graft [place] vs. transplanted heart: [place] heart Associated angina: without angina Qualified Code(s): I25.810 - Atherosclerosis of coronary artery bypass graft(s) without angina pectoris Comment: stable (3) Diabetes type 2, controlled Code(s): E11.9 - TYPE 2 DIABETES MELLITUS WITHOUT COMPLICATIONS Status: Chronic Qualifiers: Diabetes mellitus complication status: with kidney complications Diabetes mellitus complication detail: with chronic kidney disease Chronic kidney disease stage: on chronic dialysis Comment: continue accuchecks, insulin sliding scale (4) Dyslipidemia Code(s): E78.5 - HYPERLIPIDEMIA, UNSPECIFIED Status: Chronic Comment: on statin (5) ESRD on dialysis Code(s): N18.6 - END STAGE RENAL DISEASE; Z99.2 - DEPENDENCE ON RENAL DIALYSIS Status: Chronic Comment: dialysis per nephrology service (6) Hypertension Code(s): I10 - ESSENTIAL (PRIMARY) HYPERTENSION Status: Chronic Comment: continue home medications (7) Acute metabolic encephalopathy Code(s): G93.41 - METABOLIC ENCEPHALOPATHY Status: Acute Comment: Improved - Plan cont current care, monitor mental status, cont HD MWF, discuss with renal * .
--- NOTE | 2018-08-11 14:46 | PRG ---
DATE OF SERVICE: 08/11/2018 SUBJECTIVE: Wily Bradford has been getting confused since yesterday's dialysis session. He has had no more bleeding. His sleep clearly has been interrupted at night and day, especially early in this admission when we were drawing blood out frequently to monitor his GI bleed. OBJECTIVE: VITAL SIGNS: There is no significant change in his vital signs. LUNGS: Clear. HEART: Regular rhythm. ABDOMEN: Soft. IMPRESSION: Encephalopathy, likely related to sleep deprivation and being in the ICU. Might benefit from a dose of Haldol at bedtime or Risperdal at bedtime. We will follow the other physicians caring for him. Job ID: [id number] MTDD
--- NOTE | 2018-08-11 20:16 | PRG ---
DATE OF SERVICE: 08/11/2018 SUBJECTIVE: Patient was seen and examined at bedside and overnight events noted. Patient denies any shortness of breath or chest pain or palpitation. No history of nausea or vomiting or diarrhea or fever or chills or cramps. OBJECTIVE: GENERAL: This is a well-built male, in no apparent distress. VITAL SIGNS: Temperature 98.5, pulse 74, respiratory rate 18, blood pressure 128/67. HEENT: Atraumatic, normocephalic. Oral mucosa is moist NECK: Supple. CARDIOVASCULAR: S1, S2 heard. Rate and rhythm regular. RESPIRATORY: Clear to auscultation. GASTROINTESTINAL: Abdomen is soft. MUSCULOSKELETAL: No tenderness. No edema. DERMATOLOGIC: No skin rash. NEUROLOGIC: Alert and awake and oriented X3. No focal neurologic deficits. Moving all the extremities. PSYCHIATRIC: Mood and affect normal. LABORATORY DATA: Not done today. ASSESSMENT AND PLAN: 1. End-stage renal disease, currently on hemodialysis. 2. Hypertension. 3. Anemia. 4. Edema. 5. We will continue on dialysis as tolerated. Job ID: [id number]
[2018-08-11] MEDS: risperiDONE 1 MG TAB PO SCH (21:51)
[2018-08-11] MEDS: Diabetic Tussin 200 MG/10 ML UDCUP PO PRN (23:46)
[2018-08-12 06:48] LABS: BUN (Urea Nitrogen) 24 mg/dL (8.4-25.7); Calc. Creatinine Clearance 13 mL/min (70-130); Calcium 7.6 mg/dL (7.8-10.44); Carbon Dioxide 23 mmol/L (23-31); Chloride 101 mmol/L (98-107); Estimated GFR-MDRD 11; Glucose 163 mg/dL (80-115); Potassium 3.9 mmol/L (3.5-5.1); Sodium 133 mmol/L (136-145)
[2018-08-12] MEDS: Diabetic Tussin 200 MG/10 ML UDCUP PO PRN (07:42)
[2018-08-12 08:18] LABS: Anion Gap 13 mmol/L (10-20)
[2018-08-12] MEDS: Lisinopril 10 MG TAB PO SCH (11:05)
[2018-08-12] MEDS: hydrOXYzine 25 MG TAB PO SCH ×2 (11:06→20:40)
[2018-08-12] MEDS: Atorvastatin Calcium 10 MG TAB PO SCH (11:06)
[2018-08-12] MEDS: NIFEdipine XL 90 MG TAB PO SCH (11:06)
[2018-08-12] MEDS: Labetalol 100 MG TAB PO SCH ×2 (11:06→20:39)
[2018-08-12] MEDS: Pantoprazole 40 MG VIAL IVP SCH (11:07)
--- NOTE | 2018-08-12 11:45 | PRG ---
DATE OF SERVICE: 08/12/2018 SUBJECTIVE: Patient was seen and examined at bedside and overnight events noted. Patient denies any shortness of breath or chest pain or palpitation. No history of nausea or vomiting or diarrhea or fever or chills or cramps. OBJECTIVE: GENERAL: This is a well-built male, in no acute distress. VITAL SIGNS: Temperature 98.9. Heart rate 55. Respiratory rate 20. Blood pressure 148/77. HEENT: Atraumatic, normocephalic. Oral mucosa is moist NECK: Supple. CARDIOVASCULAR: S1, S2 heard. Rate and rhythm regular. RESPIRATORY: Clear to auscultation. GASTROINTESTINAL: Abdomen is soft. MUSCULOSKELETAL: No tenderness. No edema. DERMATOLOGIC: No skin rash. NEUROLOGIC: Alert and awake and oriented X3. No focal neurologic deficits. Moving all the extremities. PSYCHIATRIC: Mood and affect normal. LABORATORY DATA: Potassium is 3.9, BUN is 24, creatinine 5.1. ASSESSMENT AND PLAN: 1. End-stage renal disease, currently on hemodialysis on Friday, Friday, and Friday. 2. Hypertension. We will monitor. 3. Anemia. Monitor hemoglobin. 4. Edema. Controlled. We will add Epogen with dialysis. Continue on hemodialysis as tolerated. Job ID: [id number]
--- NOTE | 2018-08-12 12:18 | PRG ---
DATE OF SERVICE: 08/12/2018 SUBJECTIVE: Patient was seen and examined at bedside and overnight events noted. Patient denies any shortness of breath or chest pain or palpitation. No history of nausea or vomiting or diarrhea or fever or chills or cramps. OBJECTIVE: GENERAL: This is a well-built male, in no acute distress. VITAL SIGNS: Temperature 98.9. Heart rate 74. Respiratory rate blood pressure 148/77. HEENT: Atraumatic, normocephalic. Oral mucosa is moist NECK: Supple. CARDIOVASCULAR: S1, S2 heard. Rate and rhythm regular. RESPIRATORY: Clear to auscultation. GASTROINTESTINAL: Abdomen is soft. MUSCULOSKELETAL: No tenderness. No edema. DERMATOLOGIC: No skin rash. NEUROLOGIC: Alert and awake and oriented X3. No focal neurologic deficits. Moving all the extremities. PSYCHIATRIC: Mood and affect normal. LABORATORY DATA: Potassium is 3.9, BUN creatinine is 5.1. ASSESSMENT AND PLAN: 1. End-stage renal disease, we will continue on hemodialysis on Friday, Friday, and Friday. 2. Hypertension, stable. 3. Anemia. 4. Edema, we will remove fluid as tolerated. Plan is to continue on dialysis as tolerated. Job ID: [id number]
--- NOTE | 2018-08-12 14:24 | PRG ---
DATE OF SERVICE: 08/12/2018 SUBJECTIVE: Wily Bradford is less confused according to his today. He did not sleep last night, but when I rounded on him yesterday, he was asleep, and I suspect he is napping on and off most of the day. When I walked in today, his eyes were closed. OBJECTIVE: VITAL SIGNS: Blood pressure 148/77, heart rate 73, respiratory rate 18, oxygen saturations 94 on room air. LUNGS: Clear. HEART: Regular rate and rhythm. ABDOMEN: Soft and nontender. EXTREMITIES: Legs are not strong enough for him to walk to the bathroom to have a bowel movement. His has requested a bedside commode. IMPRESSION: 1. Blood loss anemia secondary to submassive GI bleed. 2. End-stage renal disease. 3. Severe deconditioning. 4. Diabetes. 5. ICU psychosis, slowly improving. PLAN: Continue with supportive care monitoring of his hemoglobin. If he is ambulatory, he probably would be stable for discharge. His hemoglobin is stable at 7.7 g as of yesterday. No hemoglobin was measured today. His electrolytes remarkable for potassium of 3.9. I have suggested to the supervisor research shop that he be evaluated for rehab since he is nonambulatory. Job ID: [id number]
--- NOTE | 2018-08-12 15:26 | PDOC.PN ---
- Subjective Encounter Start Date: 08/12/18 Encounter Start Time: 15:25 Subjective: weak - Objective Resuscitation Status - Order Detail: 08/07/18 12:51 Resuscitation Status Routine Resuscitation Status: FULL: Full Resuscitation Discussed with: and daughter ANN Reviewed: Yes Vital Signs & Weight: Vital Signs (12 hours) Temp Pulse Resp BP BP BP Pulse Ox 08/12/18 11:10 94 L 08/12/18 11:06 73 148/77 H 08/12/18 11:05 148/77 H 08/12/18 11:01 98.9 F 75 20 148/77 H 95 08/12/18 08:00 98.0 F 71 20 146/74 H 94 L Weight Admit Weight 145 lb 11.609 oz Weight 147 lb 3.2 oz Most Recent Monitor Data Heart Rate from ECG 88 NIBP 175/88 NIBP BP-Mean 117 Respiration from ECG 18 SpO2 93 I&O: 08/11/18 08/12/18 08/13/18 06:59 06:59 06:59 Intake Total 440 Output Total 125 Balance 315 Result Diagrams: 08/11/18 06:39 08/12/18 06:16 Additional Labs: Accuchecks 08/12/18 08/12/18 08/12/18 11:35 04:40 01:07 POC Glucose 129 H 161 H 217 H 08/11/18 08/11/18 19:24 16:47 POC Glucose 264 H 268 H Phys Exam - Physical Examination Neck: no JVD Respiratory: clear to auscultation bilateral Cardiovascular: RRR, no significant murmur Gastrointestinal: soft, non-tender Musculoskeletal: no edema Dx/Plan (1) Anemia Code(s): D64.9 - ANEMIA, UNSPECIFIED Status: Acute Qualifiers: Other causes of anemia: acute posthemorrhagic (2) CAD (coronary artery disease) Code(s): I25.10 - ATHSCL HEART DISEASE OF [place] CORONARY ARTERY W/O ANG PCTRS Status: Chronic Qualifiers: Coronary Disease-Associated Artery/Lesion type: bypass graft [place] vs. transplanted heart: [place] heart Associated angina: without angina Qualified Code(s): I25.810 - Atherosclerosis of coronary artery bypass graft(s) without angina pectoris Comment: stable (3) Diabetes type 2, controlled Code(s): E11.9 - TYPE 2 DIABETES MELLITUS WITHOUT COMPLICATIONS Status: Chronic Qualifiers: Diabetes mellitus complication status: with kidney complications Diabetes mellitus complication detail: with chronic kidney disease Chronic kidney disease stage: on chronic dialysis Comment: continue accuchecks, insulin sliding scale (4) Dyslipidemia Code(s): E78.5 - HYPERLIPIDEMIA, UNSPECIFIED Status: Chronic Comment: on statin (5) ESRD on dialysis Code(s): N18.6 - END STAGE RENAL DISEASE; Z99.2 - DEPENDENCE ON RENAL DIALYSIS Status: Chronic Comment: dialysis per nephrology service (6) Hypertension Code(s): I10 - ESSENTIAL (PRIMARY) HYPERTENSION Status: Chronic Comment: continue home medications (7) Acute metabolic encephalopathy Code(s): G93.41 - METABOLIC ENCEPHALOPATHY Status: Acute Comment: Improved - Plan cont current plan of care PT/OT rehab referral * .
[2018-08-12] MEDS: HumaLOG 300 UNITS/3 ML VIAL SC PRN ×2 (16:52→20:41)
[2018-08-12] MEDS: risperiDONE 1 MG TAB PO SCH (20:41)
--- NOTE | 2018-08-13 07:37 | DIS ---
DATE OF ADMISSION: 08/07/2018 DATE OF DISCHARGE: TRANSFER OF CARE: DISPOSITION Discharged home. PRIMARY CARE PROVIDER: Familia Russ. FINAL DIAGNOSES: Hypovolemic shock; gastrointestinal hemorrhage; hyperkalemia; type 2 diabetes; end-stage renal disease, on hemodialysis; hypertension; encephalopathy; diverticulosis, bleeding. DISCHARGE MEDICATIONS: 1. Nifedipine XL 90 mg a day. 2. Lisinopril 10 mg a day. 3. He has been on Levemir FlexPen. Unfortunately, we do not know what dose. He has apparently been receiving for blood sugar less than 200, no units; for 201 to 250, 6 units; 251 to 300, 10 units; greater than 300, 14 units. 4. Labetalol 100 mg tablets q.12 hours. 5. Lipitor 10 mg a day. 6. Hydroxyzine 25 mg p.o. q.12 hours p.r.n. 7. Protonix 40 mg a day. 8. Erythropoietin 10,000 units IV push Friday, Friday, and Friday at hemodialysis. ALLERGIES: NO KNOWN DRUG ALLERGIES. DIET: Diabetic. PENDING AT THE TIME OF DISCHARGE: Nothing. CODE STATUS: Full. HOSPITAL COURSE: The patient was admitted to the [facility] through [facility] with profuse rectal bleeding. Initial hemoglobin was 4.4, hematocrit 13.1. His potassium was 6.6. The patient received acutely 3 units of packed cells with FFP, placed on dopamine. The patient was acutely intubated, ventilated. Dr. Slater, paleology professor was consulted. Dr. Kaminski was consulted for acute hemodialysis. Dr. Roberts was consulted for GI. The patient underwent central line placement on 08/07/2018. The patient underwent colonoscopy, which revealed significant diverticulosis. No evidence of bleeding site. It is pertinent that the patient had no further significant bleeding. The patient stabilized rapidly. He was extubated on 08/08/2018, continued in IMCU. On 08/10/2018, he was doing well. His hemoglobin was stable at above 7. Continued to be followed by Nephrology. He received hemodialysis every other day. On 08/10/2018, he had some confusion post hemodialysis. He was monitored. He was better on 08/11/2018. He had dialysis this morning and is currently doing well. He is being discharged for followup with his PCP in 1 week to follow up with hemodialysis Friday, Friday, and Friday. His current laboratory on 08/11/2018; white cell count 10.7, hemoglobin 7.7 and stable over the past 4 days, platelet count 153,000. His BUN is down to 24, creatinine 5.12, sodium 133, potassium 3.9, CO2 of 23. The patient's cardiorespiratory exam was normal. His vital signs were stable. He is being discharged for the aforementioned followup. Job ID: [id number]
[2018-08-13] MEDS: Labetalol 100 MG TAB PO SCH ×4 (10:32→20:59)
[2018-08-13] MEDS: Atorvastatin Calcium 10 MG TAB PO SCH ×2 (10:33→11:41)
[2018-08-13] MEDS: Lisinopril 10 MG TAB PO SCH ×2 (10:33→11:41)
[2018-08-13] MEDS: hydrOXYzine 25 MG TAB PO SCH ×4 (10:34→21:00)
[2018-08-13] MEDS: NIFEdipine XL 90 MG TAB PO SCH ×2 (10:34→11:42)
[2018-08-13] MEDS: Diabetic Tussin 200 MG/10 ML UDCUP PO PRN (11:39)
--- NOTE | 2018-08-13 11:40 | PDOC.PN ---
- Subjective Encounter Start Date: 08/13/18 Encounter Start Time: 11:38 Subjective: confused , no apprpriate responce - Objective Resuscitation Status - Order Detail: 08/07/18 12:51 Resuscitation Status Routine Resuscitation Status: FULL: Full Resuscitation Discussed with: and daughter ANN Reviewed: Yes Vital Signs & Weight: Vital Signs (12 hours) Temp Pulse Resp BP BP Pulse Ox 08/13/18 11:02 98.3 F 79 14 120/53 L 91 L 08/13/18 11:00 70 129/69 08/13/18 08:00 98 F 93 16 129/69 94 L Weight Admit Weight 145 lb 11.609 oz Weight 147 lb 3.2 oz Most Recent Monitor Data Heart Rate from ECG 88 NIBP 175/88 NIBP BP-Mean 117 Respiration from ECG 18 SpO2 93 I&O: 08/12/18 08/13/18 08/14/18 06:59 06:59 06:59 Intake Total 500 240 Output Total 100 35 Balance 400 205 Result Diagrams: 08/11/18 06:39 08/12/18 06:16 Additional Labs: Accuchecks 08/13/18 08/12/18 08/12/18 04:44 20:22 16:49 POC Glucose 167 H 249 H 212 H 08/12/18 11:35 POC Glucose 129 H Phys Exam - Physical Examination Neck: no JVD Respiratory: clear to auscultation bilateral Cardiovascular: RRR, no significant murmur Gastrointestinal: soft, positive bowel sounds Musculoskeletal: no edema Dx/Plan (1) Anemia Code(s): D64.9 - ANEMIA, UNSPECIFIED Status: Acute Qualifiers: Other causes of anemia: acute posthemorrhagic (2) CAD (coronary artery disease) Code(s): I25.10 - ATHSCL HEART DISEASE OF [place] CORONARY ARTERY W/O ANG PCTRS Status: Chronic Qualifiers: Coronary Disease-Associated Artery/Lesion type: bypass graft [place] vs. transplanted heart: [place] heart Associated angina: without angina Qualified Code(s): I25.810 - Atherosclerosis of coronary artery bypass graft(s) without angina pectoris Comment: stable (3) Diabetes type 2, controlled Code(s): E11.9 - TYPE 2 DIABETES MELLITUS WITHOUT COMPLICATIONS Status: Chronic Qualifiers: Diabetes mellitus complication status: with kidney complications Diabetes mellitus complication detail: with chronic kidney disease Chronic kidney disease stage: on chronic dialysis Comment: continue accuchecks, insulin sliding scale (4) Dyslipidemia Code(s): E78.5 - HYPERLIPIDEMIA, UNSPECIFIED Status: Chronic Comment: on statin (5) ESRD on dialysis Code(s): N18.6 - END STAGE RENAL DISEASE; Z99.2 - DEPENDENCE ON RENAL DIALYSIS Status: Chronic Comment: dialysis per nephrology service (6) Hypertension Code(s): I10 - ESSENTIAL (PRIMARY) HYPERTENSION Status: Chronic Comment: continue home medications (7) Acute metabolic encephalopathy Code(s): G93.41 - METABOLIC ENCEPHALOPATHY Status: Acute Comment: Improved - Plan cont HD -: rpt cbc -: Dr Tinsley for HD catheter change -: cont accu/ss/ add lantus -: PT/ot-rehab * .
[2018-08-13] MEDS ORDERED: CEFAZOLIN/Water 2 GM/20 ML SYRINGE SLOW IVP SCH (15:00)
[2018-08-13] MEDS ORDERED: CEFAZOLIN 2 GM/50 ML-DEXTROSE 2 GM in Premix Bag 1 BAG IVPB SCH (15:30)
--- NOTE | 2018-08-13 16:51 | HP ---
HISTORY OF PRESENT ILLNESS: Wily Bradford is a 68-year-old male, whom I recently saw in the hospital and he needs a right arm fistula. The patient is re-admitted this hospitalization on 08/07/2018 for GI bleed. He has had a colonoscopy without noting diverticulosis without evident bleeding. Dr. Carroll is his medicine aide. Plan is to place a right arm fistula. I removed this mid forearm cephalic vein IV immediately on entering the room. He has a right IJ cuffed tunneled dialysis catheter. ALLERGIES: NONE. TOBACCO: None. ALCOHOL: None. PAST SURGICAL HISTORY: 1. Coronary artery bypass grafting. 2. Appendectomy. 3. Cataract surgery. 4. Carotid endarterectomy. 5. Cuffed tunneled dialysis catheter. PAST MEDICAL HISTORY: 1. Diabetes mellitus type 2. 2. Coronary artery disease. 3. PID. 4. Hypertension. 5. Dyslipidemia. 6. Neuropathy. 7. On hemodialysis. 8. Chronic diarrhea. 9. Erectile dysfunction. MEDICATIONS: 1. Aspirin. 2. Hydroxyzine. 3. Nifedipine. 4. Lisinopril. 5. Labetalol. 6. Atorvastatin. 7. Lasix. 8. Trazodone. 9. Levemir sliding scale. PHYSICAL EXAMINATION: VITAL SIGNS: Height 5 feet 7 inches, 147 pounds, with 23 BMI. Blood pressure 120/53. HEAD, EARS, EYES, NOSE, AND THROAT: Unremarkable. LUNGS: Clear to auscultation. CARDIAC: Regular rate and rhythm without murmur or gallop. ABDOMEN: Soft and nontender. EXTREMITIES: IV right cephalic vein removed. Several other puncture sites in right arm indicative of recent IV. ASSESSMENT AND PLAN: Right arm fistula tomorrow, n.p.o. after midnight, possible central line. Job ID: [id number]
[2018-08-13 17:54] LABS: #Basophils 0.1 thou/uL (0.0-0.2); #Eosinphils 0.2 thou/uL (0.0-0.7); #Lymphocytes 0.6 thou/uL (1.20-3.40); #Monocytes 0.6 thou/uL (0.11-0.59); #Neutrophils 8.4 thou/uL (1.40-6.50); %Basophils 0.5 % (0.0-1.0); %Eosinophils 2.2 % (0.0-10.0); %Lymphocytes 6.1 % (21.0-51.0); %Monocytes 6.4 % (0.0-10.0); %Neutrophils 84.8 % (42.0-75.0); Hemoglobin 7.8 g/dL (14.0-18.0); Mean Corpuscular HGB CONC 33.2 g/dL (32.0-36.0); Mean Corpuscular Hemoglobin 30.6 pg (27.0-31.0); Mean Platelet Volume 9.1 fL (7.4-10.4); Platelet Count 180 thou/uL (130-400); RBC Distribution Width 15.7 % (11.5-14.5); Red Blood Cell (RBC) Count 2.54 mill/uL (4.70-6.10); White Blood Cell (WBC) Count 9.9 thou/uL (4.8-10.8)
--- NOTE | 2018-08-13 20:40 | PRG ---
DATE OF SERVICE: 08/13/2018 SUBJECTIVE: Patient was seen and examined at bedside and overnight events noted. Patient denies any shortness of breath or chest pain or palpitation. No history of nausea or vomiting or diarrhea or fever or chills or cramps. OBJECTIVE: GENERAL: This is a well-built male in no apparent distress. VITAL SIGNS: Temperature 99.7. Heart rate 79. Respiratory rate 17. Blood pressure 130/92. HEENT: Atraumatic, normocephalic. Oral mucosa is moist NECK: Supple. CARDIOVASCULAR: S1, S2 heard. Rate and rhythm regular. RESPIRATORY: Clear to auscultation. GASTROINTESTINAL: Abdomen is soft. MUSCULOSKELETAL: No tenderness. No edema. DERMATOLOGIC: No skin rash. NEUROLOGIC: Alert and awake and oriented X3. No focal neurologic deficits. Moving all the extremities. PSYCHIATRIC: Mood and affect normal. LABORATORY DATA: Not done today. ASSESSMENT AND PLAN: 1. End-stage renal disease, currently on hemodialysis, plan to have tomorrow. 2. Hypertension. 3. Anemia. 4. Edema . 5. Continue dialysis as tolerated on Friday, Friday, and Friday. Job ID: [id number]
[2018-08-13] MEDS: risperiDONE 1 MG TAB PO SCH (21:00)
[2018-08-13] MEDS: Insulin Glargine 6 UNITS in Pre-Filled Syringe 1 EACH SC SCH (21:00)
[2018-08-14] MEDS: Labetalol 100 MG TAB PO SCH ×2 (05:10→20:35)
[2018-08-14] MEDS ORDERED: Midazolam HCl 2 mg/2 ml Vial ONE ×2 (06:34→08:00)
[2018-08-14] MEDS ORDERED: Fentanyl 100 MCG/2 ML VIAL ONE (06:35)
[2018-08-14] MEDS ORDERED: Heparin 5,000 UNITS/ML VIAL ONE (06:54)
[2018-08-14] MEDS ORDERED: Lidocaine 2% PF 5 ML VIAL ONE (06:54)
[2018-08-14] MEDS ORDERED: Lidocaine 1% (PF) 30 ML VIAL ONE (06:54)
[2018-08-14] MEDS ORDERED: Bupivacaine HCl 0.5%/Epinephrine 1:200,000/PF 30 ml Vial ONE ×2 (06:54→11:32)
[2018-08-14] MEDS ORDERED: CEFAZOLIN 2 GM/50 ML BAG ONE (07:17)
[2018-08-14] MEDS ORDERED: Sodium Chloride 0.9% 20 ML ONE (08:33)
[2018-08-14] MEDS ORDERED: Protamine Sulfate 50 MG/5 ML VIAL ONE (08:34)
[2018-08-14] MEDS: Lisinopril 10 MG TAB PO SCH (09:00)
[2018-08-14] MEDS: NIFEdipine XL 90 MG TAB PO SCH (09:00)
[2018-08-14] MEDS: hydrOXYzine 25 MG TAB PO SCH ×2 (09:00→20:35)
[2018-08-14] MEDS: Atorvastatin Calcium 10 MG TAB PO SCH (09:00)
[2018-08-14] MEDS ORDERED: Ondansetron HCl/PF 4 MG/2 ML Vial IVP PRN (09:06)
[2018-08-14] MEDS ORDERED: Promethazine HCl 25 MG/ML VIAL SLOW IVP PRN (09:06)
[2018-08-14] MEDS ORDERED: Promethazine HCl 25 MG/ML VIAL IM PRN (09:06)
[2018-08-14] MEDS ORDERED: Acetaminophen 500 MG TAB PO PRN (09:12)
[2018-08-14] MEDS ORDERED: traMADol HCl 50 MG TAB PO PRN ×2 (09:12)
[2018-08-14] MEDS ORDERED: Heparin 10,000 UNITS/ 10 ML VIAL ONE ×4 (09:22→12:16)
--- NOTE | 2018-08-14 10:22 | RAD ---
PORTABLE UPRIGHT FRONTAL CHEST RADIOGRAPH: Date: 08-14-18 Comparison: 08-07-18 History: Evaluate chest following central line placement. FINDINGS: There is a right sided dialysis catheter, distal tip overlying the lower right atrium in the expected location of the junction of the right atrium in the inferior vena cava. Left sided vascular catheter present, distal tip overlying the region of the proximal right atrium. Midline sternotomy wires are present. There is no pneumothorax. There is pulmonary vascular congestion. There is hazy perihilar an d bibasilar parenchymal opacity which suggests pulmonary edema. Infectious pneumonitis or aspiration less likely. Question small bilateral pleural effusions. IMPRESSION: Lines and tubes as detailed above. Hazy perihilar and bibasilar densities suggest pulmonary edema, le ss likely infectious pneumonitis. Follow up following treatment advised. POS: DANIELLE
--- NOTE | 2018-08-14 11:28 | PDOC.PN ---
- Subjective Encounter Start Date: 08/14/18 Encounter Start Time: 11:26 Subjective: sleepy post AV fistula surgery - Objective Resuscitation Status - Order Detail: 08/07/18 12:51 Resuscitation Status Routine Resuscitation Status: FULL: Full Resuscitation Discussed with: and daughter ANN Reviewed: Yes Vital Signs & Weight: Vital Signs (12 hours) Temp Pulse Resp BP BP Pulse Ox 08/14/18 05:10 74 119/69 08/14/18 05:09 99.5 F 74 18 119/69 93 L Weight Admit Weight 145 lb 11.609 oz Weight 147 lb 3.2 oz Most Recent Monitor Data Heart Rate from ECG 88 NIBP 175/88 NIBP BP-Mean 117 Respiration from ECG 18 SpO2 93 I&O: 08/13/18 08/14/18 08/15/18 06:59 06:59 06:59 Intake Total 500 660 Output Total 100 35 Balance 400 625 Result Diagrams: 08/13/18 17:42 08/12/18 06:16 Additional Labs: Accuchecks 08/14/18 08/14/18 08/13/18 09:47 05:40 21:11 POC Glucose 189 H 205 H 250 H 08/13/18 08/13/18 16:19 11:07 POC Glucose 243 H 198 H Phys Exam - Physical Examination Neck: no JVD Respiratory: clear to auscultation bilateral Cardiovascular: RRR, no significant murmur Gastrointestinal: soft, positive bowel sounds Musculoskeletal: no edema Dx/Plan (1) Anemia Code(s): D64.9 - ANEMIA, UNSPECIFIED Status: Acute Qualifiers: Other causes of anemia: acute posthemorrhagic (2) CAD (coronary artery disease) Code(s): I25.10 - ATHSCL HEART DISEASE OF [place] CORONARY ARTERY W/O ANG PCTRS Status: Chronic Qualifiers: Coronary Disease-Associated Artery/Lesion type: bypass graft [place] vs. transplanted heart: [place] heart Associated angina: without angina Qualified Code(s): I25.810 - Atherosclerosis of coronary artery bypass graft(s) without angina pectoris Comment: stable (3) Diabetes type 2, controlled Code(s): E11.9 - TYPE 2 DIABETES MELLITUS WITHOUT COMPLICATIONS Status: Chronic Qualifiers: Diabetes mellitus complication status: with kidney complications Diabetes mellitus complication detail: with chronic kidney disease Chronic kidney disease stage: on chronic dialysis Comment: continue accuchecks, insulin sliding scale (4) Dyslipidemia Code(s): E78.5 - HYPERLIPIDEMIA, UNSPECIFIED Status: Chronic Comment: on statin (5) ESRD on dialysis Code(s): N18.6 - END STAGE RENAL DISEASE; Z99.2 - DEPENDENCE ON RENAL DIALYSIS Status: Chronic Comment: dialysis per nephrology service (6) Hypertension Code(s): I10 - ESSENTIAL (PRIMARY) HYPERTENSION Status: Chronic Comment: continue home medications (7) Acute metabolic encephalopathy Code(s): G93.41 - METABOLIC ENCEPHALOPATHY Status: Acute Comment: Improved - Plan Hg stable -: Post AV fistula -: ont HD -: cont PPI -: still confused- placement pending * .
--- NOTE | 2018-08-14 13:29 | PRG ---
DATE OF SERVICE: 08/14/2018 SUBJECTIVE: Patient was seen and examined at bedside and overnight events noted. Patient denies any shortness of breath or chest pain or palpitation. No history of nausea or vomiting or diarrhea or fever or chills or cramps. OBJECTIVE: GENERAL: This is a well-built male, in no apparent distress. VITAL SIGNS: Temperature 99.5, pulse 74, respiratory rate 18, blood pressure 119/69. HEENT: Atraumatic, normocephalic. Oral mucosa is moist NECK: Supple. CARDIOVASCULAR: S1, S2 heard. Rate and rhythm regular. RESPIRATORY: Clear to auscultation. GASTROINTESTINAL: Abdomen is soft. MUSCULOSKELETAL: No tenderness. No edema. DERMATOLOGIC: No skin rash. NEUROLOGIC: Alert and awake and oriented X3. No focal neurologic deficits. Moving all the extremities. PSYCHIATRIC: Mood and affect normal. LABORATORY DATA: ASSESSMENT AND PLAN: 1. End-stage renal disease. Continue on hemodialysis. 2. Edema, controlled. 3. Hypertension. 4. Anemia. 5. Plan is to continue on dialysis as tolerated. Job ID: [id number]
--- NOTE | 2018-08-14 16:00 | OP ---
DATE OF PROCEDURE: 08/14/2018 PREOPERATIVE DIAGNOSES: End-stage renal disease, poor IV access, previous IV in the right cephalic vein, operative vein for his fistula removed immediately. PROCEDURES PERFORMED: Right Ricky fistula, venous thrombectomy, removing thrombus from iatrogenic IV access, and plan dialysis access. Left IJ central line, triple lumen, ultrasound used. ANESTHESIA: Regional TIVA, local of 0.5% Marcaine with epinephrine, 30 mL mixed to 2% Xylocaine 10 mL. DESCRIPTION OF PROCEDURE: The patient was taken to the operating room where under right arm regional anesthesia and intravenous sedation, right upper extremity was prepared with ChloraPrep and draped in routine fashion. Incision was made between the radial artery and cephalic vein, carried down the skin and subcutaneous tissue. Cephalic vein dissected free, ligated on the hand side. Branches were divided between 4-0 silk ties and clips, mobilized proximally, and then divided, ligated on the hand side, and spatulated, and the patient was given 6000 units of heparin intravenously. Vein interrogated with coronary dilators for placing coronary dilators from a 2 mm to 4 mm coronary dilator. There was thrombus removed before Marshal catheter was placed unrestricted for 50 cm. It seemed to pass the basilic vein outflow upper arm. Two passes were made and no other thrombus was removed. It was flushed with heparinized saline solution. Atraumatic bulldog clamp applied. Radial artery dissected free. It was of good caliber. It was controlled proximally and distally with vascular clamps. Longitudinal arteriotomy was made for 3 cm anastomosis between end cephalic vein to the side radial artery. Continuous suture of 6-0 Prolene was used. Clamps were removed and good flow in the fistula noted by Doppler interrogation. Left side of his neck was prepared with ChloraPrep, draped in routine fashion. Local anesthetic was infiltrated in the skin and subcutaneous tissue. Using ultrasound guidance, the right jugular vein was cannulated with trocar catheter. J-wire was threaded. Trocar catheter was removed. Skin was incised and enlarged sharply. Dilator placed and removed. Seldinger technique was used to place a triple-lumen catheter, securing it with 3-0 silk sutures, removed the J-wire, and sterile dressings applied. Each port aspirated blood and flushed with saline solution. The patient tolerated the procedure well. Job ID: [id number]
[2018-08-14] MEDS: Epoetin (ESRD) 10,000 UNITS/ML VIAL IVP SCH (16:36)
[2018-08-14] MEDS: Insulin Glargine 6 UNITS in Pre-Filled Syringe 1 EACH SC SCH (20:35)
[2018-08-14] MEDS: risperiDONE 1 MG TAB PO SCH (20:35)
[2018-08-15] MEDS: Labetalol 100 MG TAB PO SCH ×2 (08:49→21:14)
[2018-08-15] MEDS: Atorvastatin Calcium 10 MG TAB PO SCH (08:49)
[2018-08-15] MEDS: NIFEdipine XL 90 MG TAB PO SCH (08:49)
[2018-08-15] MEDS: hydrOXYzine 25 MG TAB PO SCH ×2 (08:50→21:14)
[2018-08-15] MEDS: Lisinopril 10 MG TAB PO SCH (08:54)
--- NOTE | 2018-08-15 15:56 | PRG ---
DATE OF SERVICE: 08/15/2018 SUBJECTIVE: Patient was seen and examined at bedside and overnight events noted. Patient denies any shortness of breath or chest pain or palpitation. No history of nausea or vomiting or diarrhea or fever or chills or cramps. OBJECTIVE: GENERAL: This is a well-built male in no apparent distress. VITAL SIGNS: Temperature 99.5. Pulse 69. Respiratory rate 18. Blood pressure 113/68. HEENT: Atraumatic, normocephalic. Oral mucosa is moist NECK: Supple. CARDIOVASCULAR: S1, S2 heard. Rate and rhythm regular. RESPIRATORY: Clear to auscultation. GASTROINTESTINAL: Abdomen is soft. MUSCULOSKELETAL: No tenderness. No edema. DERMATOLOGIC: No skin rash. NEUROLOGIC: Alert and awake and oriented X3. No focal neurologic deficits. Moving all the extremities. PSYCHIATRIC: Mood and affect normal. LABORATORY DATA: Not done today. ASSESSMENT AND PLAN: 1. End-stage renal disease. Continue on hemodialysis. 2. Edema, controlled. 3. Hypertension. 4. Anemia. We will monitor hemoglobin. 5. We will continue on dialysis as tolerated. Job ID: [id number]
--- NOTE | 2018-08-15 16:03 | PDOC.PN ---
- Subjective Encounter Start Date: 08/15/18 (f/u weakness) Encounter Start Time: 16:01 Subjective: Pt without complaints, denies n/v/abd pain/cp/sob -: reports today is better - less confused, talking more - Objective Resuscitation Status - Order Detail: 08/07/18 12:51 Resuscitation Status Routine Resuscitation Status: FULL: Full Resuscitation Discussed with: and daughter Vital Signs & Weight: Vital Signs (12 hours) Temp Pulse Resp BP BP Pulse Ox 08/15/18 11:25 97.6 F 69 18 103/68 93 L 08/15/18 08:54 119/69 08/15/18 08:49 78 08/15/18 08:16 99.9 F H 78 18 169/76 H 94 L 08/15/18 04:12 99.1 F 78 20 159/72 H 91 L Weight Admit Weight 145 lb 11.609 oz Weight 147 lb 3.2 oz Most Recent Monitor Data Heart Rate from ECG 88 NIBP 175/88 NIBP BP-Mean 117 Respiration from ECG 18 SpO2 93 I&O: 08/14/18 08/15/18 08/16/18 06:59 06:59 06:59 Intake Total 660 100 Output Total 35 150 Balance 625 -50 Result Diagrams: 08/13/18 17:42 08/12/18 06:16 Additional Labs: Accuchecks 08/15/18 08/15/18 08/14/18 11:31 03:59 20:35 POC Glucose 216 H 133 H 177 H 08/14/18 17:46 POC Glucose 114 H Phys Exam - Physical Examination Constitutional: NAD Respiratory: no wheezing, no rales, no rhonchi Cardiovascular: RRR, no significant murmur Gastrointestinal: soft, non-tender, no distention, positive bowel sounds Musculoskeletal: no edema Neurological: non-focal, moves all 4 limbs Psychiatric: normal affect Dx/Plan (1) GI bleed Code(s): K92.2 - GASTROINTESTINAL HEMORRHAGE, UNSPECIFIED Status: Resolved (2) Anemia Code(s): D64.9 - ANEMIA, UNSPECIFIED Status: Acute Qualifiers: Other causes of anemia: acute posthemorrhagic (3) Acute metabolic encephalopathy Code(s): G93.41 - METABOLIC ENCEPHALOPATHY Status: Acute (4) CAD (coronary artery disease) Code(s): I25.10 - ATHSCL HEART DISEASE OF [place] CORONARY ARTERY W/O ANG PCTRS Status: Chronic Qualifiers: Coronary Disease-Associated Artery/Lesion type: bypass graft [place] vs. transplanted heart: [place] heart Associated angina: without angina Qualified Code(s): I25.810 - Atherosclerosis of coronary artery bypass graft(s) without angina pectoris Comment: stable (5) Diabetes mellitus type 2 in nonobese Code(s): E11.9 - TYPE 2 DIABETES MELLITUS WITHOUT COMPLICATIONS Status: Chronic (6) ESRD on dialysis Code(s): N18.6 - END STAGE RENAL DISEASE; Z99.2 - DEPENDENCE ON RENAL DIALYSIS Status: Chronic Comment: dialysis per nephrology service (7) Hypertension Code(s): I10 - ESSENTIAL (PRIMARY) HYPERTENSION Status: Chronic - Plan * Pt on home medicines - continue * continue pt/ot and awaiting placement * monitor mental status - the changes secondary to this illness with baseline co -morbidities are not surprising * * dvt prophy - scd's * gi prophy - not indicated * code status full * * reviewed no changes to plan of care with patient through video textile stylist, no questions or further needs at end of eval.
[2018-08-15] MEDS: HumaLOG 300 UNITS/3 ML VIAL SC PRN (21:13)
[2018-08-15] MEDS: Insulin Glargine 6 UNITS in Pre-Filled Syringe 1 EACH SC SCH (21:13)
[2018-08-15] MEDS: risperiDONE 1 MG TAB PO SCH (21:14)
--- NOTE | 2018-08-15 21:52 | EKG ---
Test Reason : Blood Pressure : / mmHG Vent. Rate : 067 BPM Atrial Rate : 067 BPM P-R Int : 154 ms QRS Dur : 082 ms QT Int : 454 ms P-R-T Axes : 010 078 100 degrees QTc Int : 479 ms Normal sinus rhythm Low voltage QRS Septal infarct , age undetermined Abnormal ECG Confirmed by ESTHER PRATHER, CAROLYN ([id number]), non linear editor JAYY ESCAMILLA ([id number]) on 08/15/2018 9:52:05 PM Referred By: Confirmed By:CAROLYN SANTANA MD
[2018-08-16] MEDS: Acetaminophen 325 MG TAB PO PRN (04:19)
--- NOTE | 2018-08-16 06:56 | PDOC.EVN ---
Event Note - Event Note Event Note: RN called - Patient pulled central line.
[2018-08-16] MEDS: Atorvastatin Calcium 10 MG TAB PO SCH (09:03)
[2018-08-16] MEDS: Lisinopril 10 MG TAB PO SCH (09:03)
[2018-08-16] MEDS: hydrOXYzine 25 MG TAB PO SCH ×2 (09:04→20:48)
[2018-08-16] MEDS: NIFEdipine XL 90 MG TAB PO SCH (09:07)
[2018-08-16] MEDS: Labetalol 100 MG TAB PO SCH ×2 (09:08→20:49)
--- NOTE | 2018-08-16 14:23 | PRG ---
DATE OF SERVICE: 08/16/2018 SUBJECTIVE: Patient was seen and examined at bedside and overnight events noted. Patient denies any shortness of breath or chest pain or palpitation. No history of nausea or vomiting or diarrhea or fever or chills or cramps. OBJECTIVE: GENERAL: This is a well-built male, in no apparent distress. VITAL SIGNS: Temperature 98.4. Heart rate 71. Respiratory rate 16. Blood pressure 117/73. HEENT: Atraumatic, normocephalic. Oral mucosa is moist NECK: Supple. CARDIOVASCULAR: S1, S2 heard. Rate and rhythm regular. RESPIRATORY: Clear to auscultation. GASTROINTESTINAL: Abdomen is soft. MUSCULOSKELETAL: No tenderness. No edema. DERMATOLOGIC: No skin rash. NEUROLOGIC: Alert and awake and oriented X3. No focal neurologic deficits. Moving all the extremities. PSYCHIATRIC: Mood and affect normal. LABORATORY DATA: Not done today. ASSESSMENT AND PLAN: 1. End-stage renal disease. Continue on dialysis on Friday, Friday, and Friday. 2. Edema. 3. Hypertension. 4. Anemia. Monitor hemoglobin. Plan is to continue dialysis as tolerated. Job ID: [id number]
--- NOTE | 2018-08-16 16:14 | PDOC.PN ---
- Subjective Encounter Start Date: 08/16/18 (f/u weakness) Encounter Start Time: 16:12 Subjective: Pt without complaints. His requests when ready for discharge -: that he go home, not rehab. She reports they have support and -: he could have home health. Able to walk 3 steps with PT with assistance - Objective Resuscitation Status - Order Detail: 08/07/18 12:51 Resuscitation Status Routine Resuscitation Status: FULL: Full Resuscitation Discussed with: and daughter Vital Signs & Weight: Vital Signs (12 hours) Temp Pulse Resp BP Pulse Ox 08/16/18 09:08 71 08/16/18 09:07 71 08/16/18 07:14 98.4 F 71 16 131/73 93 L Weight Admit Weight 145 lb 11.609 oz Weight 147 lb 3.2 oz Most Recent Monitor Data Heart Rate from ECG 88 NIBP 175/88 NIBP BP-Mean 117 Respiration from ECG 18 SpO2 93 I&O: 08/15/18 08/16/18 08/17/18 06:59 06:59 06:59 Intake Total 100 Output Total 150 50 Balance -50 -50 Result Diagrams: 08/13/18 17:42 08/12/18 06:16 Additional Labs: Accuchecks 08/16/18 08/16/18 08/15/18 12:12 04:20 20:31 POC Glucose 239 H 137 H 331 H 08/15/18 16:21 POC Glucose 233 H Phys Exam - Physical Examination Constitutional: NAD Respiratory: no wheezing, no rales, no rhonchi Cardiovascular: RRR, no significant murmur Gastrointestinal: soft, non-tender, no distention, positive bowel sounds Musculoskeletal: no edema Neurological: non-focal, moves all 4 limbs Dx/Plan (1) GI bleed Code(s): K92.2 - GASTROINTESTINAL HEMORRHAGE, UNSPECIFIED Status: Resolved (2) Anemia Code(s): D64.9 - ANEMIA, UNSPECIFIED Status: Acute Qualifiers: Other causes of anemia: acute posthemorrhagic (3) Acute metabolic encephalopathy Code(s): G93.41 - METABOLIC ENCEPHALOPATHY Status: Acute (4) CAD (coronary artery disease) Code(s): I25.10 - ATHSCL HEART DISEASE OF [place] CORONARY ARTERY W/O ANG PCTRS Status: Chronic Qualifiers: Coronary Disease-Associated Artery/Lesion type: bypass graft [place] vs. transplanted heart: [place] heart Associated angina: without angina Qualified Code(s): I25.810 - Atherosclerosis of coronary artery bypass graft(s) without angina pectoris Comment: stable (5) Diabetes mellitus type 2 in nonobese Code(s): E11.9 - TYPE 2 DIABETES MELLITUS WITHOUT COMPLICATIONS Status: Chronic (6) ESRD on dialysis Code(s): N18.6 - END STAGE RENAL DISEASE; Z99.2 - DEPENDENCE ON RENAL DIALYSIS Status: Chronic Comment: dialysis per nephrology service (7) Hypertension Code(s): I10 - ESSENTIAL (PRIMARY) HYPERTENSION Status: Chronic - Plan * * Pt on home medicines - continue * continue pt/ot and awaiting placement * monitor mental status - the changes secondary to this illness with baseline co -morbidities are not surprising * * Discussed with pt's that he is not strong enough for home - given that he can only walk 3 steps and requires assistance. Pt has 3 times weekly dialysis - I'm concerned about his ability to get there and tolerate it. Request for case management discussion with patient/family tomorrow. * * dvt prophy - scd's * gi prophy - not indicated * code status full * * reviewed no changes to plan of care with patient through video corrosion engineer, no questions or further needs at end of eval. .
[2018-08-16] MEDS: HumaLOG 300 UNITS/3 ML VIAL SC PRN (17:10)
[2018-08-16] MEDS: risperiDONE 1 MG TAB PO SCH (20:48)
[2018-08-16] MEDS: Insulin Glargine 6 UNITS in Pre-Filled Syringe 1 EACH SC SCH (20:49)
--- NOTE | 2018-08-17 09:45 | PDOC.PN ---
- Subjective Encounter Start Date: 08/17/18 Encounter Start Time: 11:40 Subjective: Patient reports no SOB, Chest pain, or abdominal pain. No further bleeding. -: Just back from dialysis - Objective Resuscitation Status - Order Detail: 08/07/18 12:51 Resuscitation Status Routine Resuscitation Status: FULL: Full Resuscitation Discussed with: and daughter ANN Reviewed: Yes Vital Signs & Weight: Vital Signs (12 hours) Temp Pulse Resp BP Pulse Ox 08/17/18 08:00 99 08/17/18 07:37 98.2 F 74 16 146/69 H 99 Weight Admit Weight 145 lb 11.609 oz Weight 147 lb 3.2 oz Most Recent Monitor Data Heart Rate from ECG 88 NIBP 175/88 NIBP BP-Mean 117 Respiration from ECG 18 SpO2 93 I&O: 08/16/18 08/17/18 08/18/18 06:59 06:59 06:59 Intake Total 240 Output Total 50 150 Balance -50 90 Result Diagrams: 08/13/18 17:42 08/12/18 06:16 Additional Labs: Accuchecks 08/17/18 08/16/18 08/16/18 05:51 20:34 16:50 POC Glucose 123 H 181 H 323 H 08/16/18 12:12 POC Glucose 239 H Phys Exam - Physical Examination Constitutional: NAD HEENT: moist MMs Respiratory: no wheezing, no rales, no rhonchi Cardiovascular: RRR, no significant murmur Gastrointestinal: soft, non-tender, positive bowel sounds Neurological: non-focal, moves all 4 limbs Psychiatric: normal affect, A&O x 3 Dx/Plan (1) GI bleed Code(s): K92.2 - GASTROINTESTINAL HEMORRHAGE, UNSPECIFIED Status: Resolved Qualifiers: GI bleed type/associated pathology: diverticulosis Qualified Code(s): K57.91 - Diverticulosis of intestine, part unspecified, without perforation or abscess with bleeding Comment: H/H stable (2) Anemia Code(s): D64.9 - ANEMIA, UNSPECIFIED Status: Acute Qualifiers: Other causes of anemia: acute posthemorrhagic Comment: stable (3) Acute metabolic encephalopathy Code(s): G93.41 - METABOLIC ENCEPHALOPATHY Status: Acute Comment: due to blood loss and hospitalization, improved (4) CAD (coronary artery disease) Code(s): I25.10 - ATHSCL HEART DISEASE OF [place] CORONARY ARTERY W/O ANG PCTRS Status: Chronic Qualifiers: Coronary Disease-Associated Artery/Lesion type: bypass graft [place] vs. transplanted heart: [place] heart Associated angina: without angina Qualified Code(s): I25.810 - Atherosclerosis of coronary artery bypass graft(s) without angina pectoris Comment: stable (5) Diabetes mellitus type 2 in nonobese Code(s): E11.9 - TYPE 2 DIABETES MELLITUS WITHOUT COMPLICATIONS Status: Chronic (6) ESRD on dialysis Code(s): N18.6 - END STAGE RENAL DISEASE; Z99.2 - DEPENDENCE ON RENAL DIALYSIS Status: Chronic Comment: dialysis per nephrology service (7) Hypertension Code(s): I10 - ESSENTIAL (PRIMARY) HYPERTENSION Status: Chronic - Plan cont current plan of care, PT/OT, social worker school, DVT proph w/SCDs and daughter now agreeable to rehab before going home. -: Will d/c once rehab arranged. * . - Discharge Day Encounter end time: 11:50
[2018-08-17] MEDS: Labetalol 100 MG TAB PO SCH ×2 (11:52→21:19)
[2018-08-17] MEDS: Lisinopril 10 MG TAB PO SCH (11:53)
[2018-08-17] MEDS: NIFEdipine XL 90 MG TAB PO SCH (11:53)
[2018-08-17] MEDS: hydrOXYzine 25 MG TAB PO SCH ×2 (11:53→21:19)
[2018-08-17] MEDS: Epoetin (ESRD) 10,000 UNITS/ML VIAL IVP SCH (11:55)
[2018-08-17] MEDS: Atorvastatin Calcium 10 MG TAB PO SCH (11:55)
--- NOTE | 2018-08-17 14:17 | PRG ---
DATE OF SERVICE: 08/17/2018 SUBJECTIVE: A 68-year-old gentleman, being seen for end-stage renal disease. The patient denied nausea, vomiting, or chest pain. OBJECTIVE: CONSTITUTIONAL: The patient is awake and alert. VITAL SIGNS: Afebrile. Pulse 74, breathing 16, blood pressure 122/57. GENERAL APPEARANCE AND MENTAL STATUS: Fair. HEAD/NECK: Normocephalic. Atraumatic. EYES: EOMI. No deformity. EARS: Clear. No ulcers. NOSE: Intact. No lesions. MOUTH: Clear. No discharge. THROAT: Clear. No exudate. LUNGS: Clear. No crackles. CARDIAC: S1, S2. No rub. ABDOMEN: Benign. Bowel sounds positive. GENITALIA/RECTUM: Caceres absent. BACK/EXTREMITIES: Edema 0+. NEUROLOGICAL: Alert and motor intact. SKIN: LYMPHATICS: LABORATORY DATA: Labs showed hemoglobin 7.8. ASSESSMENT: 1. Stage 6 chronic kidney disease, continue hemodialysis. 2. Hypertension, stable. 3. Anemia. We would recommend transfusion. Job ID: [id number]
[2018-08-17] MEDS ORDERED: Heparin 10,000 UNITS/ 10 ML VIAL ONE (15:00)
[2018-08-17] MEDS: Insulin Glargine 6 UNITS in Pre-Filled Syringe 1 EACH SC SCH (21:19)
[2018-08-17] MEDS: risperiDONE 1 MG TAB PO SCH (21:19)
[2018-08-17] MEDS: HumaLOG 300 UNITS/3 ML VIAL SC PRN (21:20)
[2018-08-18] MEDS: Lisinopril 10 MG TAB PO SCH (08:08)
[2018-08-18] MEDS: hydrOXYzine 25 MG TAB PO SCH ×2 (08:08→20:21)
[2018-08-18] MEDS: NIFEdipine XL 90 MG TAB PO SCH (08:08)
[2018-08-18] MEDS: Atorvastatin Calcium 10 MG TAB PO SCH (08:08)
[2018-08-18] MEDS: Labetalol 100 MG TAB PO SCH ×2 (08:08→20:24)
--- NOTE | 2018-08-18 08:34 | PDOC.PN ---
- Subjective Encounter Start Date: 08/18/18 Encounter Start Time: 09:30 Subjective: Patient reports no complaints. Moving around a little better with physical -: therapy. No CP, no SOB, no further bleeding. - Objective Resuscitation Status - Order Detail: 08/07/18 12:51 Resuscitation Status Routine Resuscitation Status: FULL: Full Resuscitation Discussed with: and daughter ANN Reviewed: Yes Vital Signs & Weight: Vital Signs (12 hours) Temp Pulse Resp BP BP Pulse Ox 08/18/18 08:08 77 127/65 08/18/18 08:07 97.8 F 73 16 145/82 H 98 08/17/18 21:19 77 127/65 Weight Admit Weight 145 lb 11.609 oz Weight 147 lb 3.2 oz Most Recent Monitor Data Heart Rate from ECG 88 NIBP 175/88 NIBP BP-Mean 117 Respiration from ECG 18 SpO2 93 I&O: 08/17/18 08/18/18 08/19/18 06:59 06:59 06:59 Intake Total 240 240 Output Total 150 100 Balance 90 140 Result Diagrams: 08/13/18 17:42 08/12/18 06:16 Additional Labs: Accuchecks 08/18/18 08/17/18 08/17/18 05:52 20:14 16:43 POC Glucose 142 H 317 H 227 H Phys Exam - Physical Examination Constitutional: NAD HEENT: moist MMs Respiratory: no wheezing, no rales, no rhonchi Cardiovascular: RRR, no significant murmur Gastrointestinal: soft, non-tender, positive bowel sounds Musculoskeletal: no edema Neurological: non-focal, moves all 4 limbs Psychiatric: normal affect, A&O x 3 Dx/Plan (1) GI bleed Code(s): K92.2 - GASTROINTESTINAL HEMORRHAGE, UNSPECIFIED Status: Resolved Qualifiers: GI bleed type/associated pathology: diverticulosis Qualified Code(s): K57.91 - Diverticulosis of intestine, part unspecified, without perforation or abscess with bleeding Comment: H/H stable (2) Anemia Code(s): D64.9 - ANEMIA, UNSPECIFIED Status: Acute Qualifiers: Other causes of anemia: acute posthemorrhagic Comment: stable (3) Acute metabolic encephalopathy Code(s): G93.41 - METABOLIC ENCEPHALOPATHY Status: Resolved Comment: due to blood loss and hospitalization, improved (4) CAD (coronary artery disease) Code(s): I25.10 - ATHSCL HEART DISEASE OF [place] CORONARY ARTERY W/O ANG PCTRS Status: Chronic Qualifiers: Coronary Disease-Associated Artery/Lesion type: bypass graft [place] vs. transplanted heart: [place] heart Associated angina: without angina Qualified Code(s): I25.810 - Atherosclerosis of coronary artery bypass graft(s) without angina pectoris Comment: stable (5) Diabetes mellitus type 2 in nonobese Code(s): E11.9 - TYPE 2 DIABETES MELLITUS WITHOUT COMPLICATIONS Status: Chronic (6) ESRD on dialysis Code(s): N18.6 - END STAGE RENAL DISEASE; Z99.2 - DEPENDENCE ON RENAL DIALYSIS Status: Chronic Comment: dialysis per nephrology service (7) Hypertension Code(s): I10 - ESSENTIAL (PRIMARY) HYPERTENSION Status: Chronic - Plan cont current plan of care, PT/OT d/c to rehab once arranged * . - Discharge Day Encounter end time: 09:40
--- NOTE | 2018-08-18 11:22 | PRG ---
DATE OF SERVICE: 08/18/2018 SUBJECTIVE: A 68-year-old gentleman, being seen for end-stage renal disease. The patient denied nausea, vomiting, or chest pain. OBJECTIVE: GENERAL: The patient is awake and alert. VITAL SIGNS: Afebrile, pulse 77, breathing 16, blood pressure 127/65. GENERAL APPEARANCE AND MENTAL STATUS: Fair. HEAD/NECK: Normocephalic. Atraumatic. EYES: EOMI. No deformity. EARS: Clear. No ulcers. NOSE: Intact. No lesions. MOUTH: Clear. No discharge. THROAT: Clear. No exudate. LUNGS: Clear. No crackles. CARDIAC: S1, S2. No rub. ABDOMEN: Benign. Bowel sounds positive. GENITALIA/RECTUM: Caceres absent. BACK/EXTREMITIES: Edema 0+. NEUROLOGICAL: Alert and motor intact. LABORATORY DATA: Hemoglobin 7.8. ASSESSMENT: 1. Stage 6 chronic kidney disease, stable. 2. Hypertension, stable. 3. Anemia. Continue Epogen. 4. Medication based on GFR appropriate. Job ID: [id number]
[2018-08-18] MEDS: HumaLOG 300 UNITS/3 ML VIAL SC PRN ×2 (18:35→21:03)
[2018-08-18] MEDS: Insulin Glargine 6 UNITS in Pre-Filled Syringe 1 EACH SC SCH (21:02)
[2018-08-18] MEDS: risperiDONE 1 MG TAB PO SCH (21:05)
--- NOTE | 2018-08-19 07:57 | PDOC.PN ---
- Subjective Encounter Start Date: 08/19/18 Encounter Start Time: 10:20 Subjective: Patient seen in dialysis. No complaints. No pain. No SOB. Eating well. - Objective Resuscitation Status - Order Detail: 08/07/18 12:51 Resuscitation Status Routine Resuscitation Status: FULL: Full Resuscitation Discussed with: and daughter ANN Reviewed: Yes Vital Signs & Weight: Vital Signs (12 hours) Temp Pulse Resp BP BP Pulse Ox 08/19/18 07:18 97.8 F 65 16 174/74 H 99 08/19/18 05:24 97.7 F 68 16 158/65 H 96 08/19/18 01:12 98.5 F 70 16 105/60 100 08/18/18 21:01 97.4 F L 66 16 114/71 08/18/18 20:24 70 120/72 08/18/18 20:00 97.7 F 70 18 120/72 99 Weight Admit Weight 145 lb 11.609 oz Weight 147 lb 3.2 oz Most Recent Monitor Data Heart Rate from ECG 88 NIBP 175/88 NIBP BP-Mean 117 Respiration from ECG 18 SpO2 93 I&O: 08/18/18 08/19/18 08/20/18 06:59 06:59 06:59 Intake Total 240 350 Output Total 100 150 Balance 140 200 Result Diagrams: 08/13/18 17:42 08/12/18 06:16 Additional Labs: Accuchecks 08/19/18 08/18/18 08/18/18 05:24 20:58 17:08 POC Glucose 108 359 H 265 H 08/18/18 12:07 POC Glucose 278 H Phys Exam - Physical Examination Constitutional: NAD HEENT: moist MMs Respiratory: no wheezing, no rales, no rhonchi Cardiovascular: RRR Gastrointestinal: soft, positive bowel sounds Musculoskeletal: no edema Neurological: non-focal, moves all 4 limbs Psychiatric: normal affect, A&O x 3 Dx/Plan (1) GI bleed Code(s): K92.2 - GASTROINTESTINAL HEMORRHAGE, UNSPECIFIED Status: Resolved Qualifiers: GI bleed type/associated pathology: diverticulosis Qualified Code(s): K57.91 - Diverticulosis of intestine, part unspecified, without perforation or abscess with bleeding Comment: H/H stable (2) Anemia Code(s): D64.9 - ANEMIA, UNSPECIFIED Status: Acute Qualifiers: Other causes of anemia: acute posthemorrhagic Comment: stable (3) Acute metabolic encephalopathy Code(s): G93.41 - METABOLIC ENCEPHALOPATHY Status: Resolved Comment: due to blood loss and hospitalization, improved (4) CAD (coronary artery disease) Code(s): I25.10 - ATHSCL HEART DISEASE OF [place] CORONARY ARTERY W/O ANG PCTRS Status: Chronic Qualifiers: Coronary Disease-Associated Artery/Lesion type: bypass graft [place] vs. transplanted heart: [place] heart Associated angina: without angina Qualified Code(s): I25.810 - Atherosclerosis of coronary artery bypass graft(s) without angina pectoris Comment: stable (5) Diabetes mellitus type 2 in nonobese Code(s): E11.9 - TYPE 2 DIABETES MELLITUS WITHOUT COMPLICATIONS Status: Chronic (6) ESRD on dialysis Code(s): N18.6 - END STAGE RENAL DISEASE; Z99.2 - DEPENDENCE ON RENAL DIALYSIS Status: Chronic Comment: dialysis per nephrology service (7) Hypertension Code(s): I10 - ESSENTIAL (PRIMARY) HYPERTENSION Status: Chronic - Plan cont current plan of care to rehab once approved * . - Discharge Day Encounter end time: 10:30
[2018-08-19] MEDS ORDERED: Heparin 1,000 UNITS/ML VIAL ONE (11:11)
--- NOTE | 2018-08-19 11:58 | PRG ---
DATE OF SERVICE: 08/19/2018 SUBJECTIVE: A 68-year-old gentleman being seen for end-stage renal disease. The patient denies any nausea, vomiting, or chest pain. OBJECTIVE: GENERAL: The patient is awake and alert, in no acute distress. VITAL SIGNS: Afebrile, pulse 68, breathing 16, and blood pressure was 158/65. GENERAL APPEARANCE AND MENTAL STATUS: Fair. HEAD/NECK: Normocephalic. Atraumatic. EYES: EOMI. No deformity. EARS: Clear. No ulcers. NOSE: Intact. No lesions. MOUTH: Clear. No discharge. THROAT: Clear. No exudate. LUNGS: Clear. No crackles. CARDIAC: S1, S2. No rub. ABDOMEN: Benign. Bowel sounds positive. GENITALIA/RECTUM: Caceres absent. BACK/EXTREMITIES: Edema 0+. NEUROLOGICAL: Alert and motor intact. SKIN: LYMPHATICS: LABORATORY DATA: Lab show hemoglobin 7.8. ASSESSMENT AND PLAN: 1. Stage 6 chronic kidney disease, continue hemodialysis. 2. Hypertension, stable. 3. Anemia, continue Epogen. Check hemoglobin if less than 8. Consider transfusion. 4. Medication based on GFR appropriate. Job ID: [id number]
[2018-08-19] MEDS: hydrOXYzine 25 MG TAB PO SCH (12:12)
[2018-08-19] MEDS: Lisinopril 10 MG TAB PO SCH (12:12)
[2018-08-19] MEDS: Atorvastatin Calcium 10 MG TAB PO SCH (12:14)
[2018-08-19] MEDS: NIFEdipine XL 90 MG TAB PO SCH (12:15)
[2018-08-19] MEDS: Labetalol 100 MG TAB PO SCH (12:17)
[2018-08-19] MEDS: HumaLOG 300 UNITS/3 ML VIAL SC PRN ×2 (12:31→16:27)
[2018-08-19 16:06] VITALS: BP 109/65; TEMP 98.4
[2018-08-19] MEDS: Epoetin (ESRD) 10,000 UNITS/ML VIAL IVP SCH (17:01)
--- NOTE | 2018-08-20 10:37 | DIS ---
DATE OF ADMISSION: 08/07/2018 DATE OF DISCHARGE: 08/19/2018 PRIMARY CARE PHYSICIAN: Antwan Bermeo. REASON FOR ADMISSION: Hematochezia. DIAGNOSES AT DISCHARGE: 1. Lower gastrointestinal bleed, likely diverticular, resolved. 2. Post hemorrhagic anemia, stable. 3. Coronary artery disease, stable. 4. Diabetes mellitus type 2. 5. End-stage renal disease, on dialysis. 6. Hypertension. PROCEDURES: 1. Right femoral central line placement. 2. Diagnostic colonoscopy showing [id number] diverticulosis within the cecum and proximal ascending colon without any active bleeding and mild sigmoid diverticulosis without any active bleeding. 3. Right Ricky fistula, venous thrombectomy and removal of thrombus from iatrogenic IV access along with a left IJ central line by Dr. Tinsley. CONSULTATIONS: 1. Gastroenterology, Dr. Roberts. 2. Nephrology, Dr. Kaminski. 3. Pulmonology, Dr. Slater. 4. General Surgery, Dr. Tinsley. SUMMARY OF HOSPITAL COURSE: This is a 68-year-old male with end-stage renal disease, diabetes, and high blood pressure, who presents to the emergency room with one day of massive hematochezia, blood and clots. He was in acute hemorrhagic shock on arrival to the emergency room, had 3 units of blood, 3 units of FFP done along with pressors and he was put on the ventilator. The patient was admitted to the hospital. He had resolution of his bleeding. Colonoscopy did show severe diverticulosis, but no active bleeding. His H and H remained stable throughout the rest of his hospitalization. The patient continued to receive hemodialysis by Nephrology during his hospitalization. He did have a little bit of metabolic encephalopathy during hospitalization, this resolved. Dr. Tinsley, was consulted to help with fistula access and placement of another central line. The patient was quite weak after his hospitalization and is working with physical therapy and now he is being discharged to rehab. DISCHARGE MANAGEMENT: Discharged to inpatient rehabilitation at [facility]. ACTIVITY: As tolerated. DIET: Renal diet. THERAPY: Occupational and physical therapy. FOLLOWUP: The patient is to follow up with Dr. Tinsley in 2 to 3 weeks for continued work on his fistula access. DISCHARGE MEDICATIONS: 1. Protonix 40 mg daily, 30 tablets dispensed. 2. Acetaminophen as needed. 3. Atorvastatin 10 mg daily. 4. Hydroxyzine 25 mg twice a day. 5. Labetalol 100 mg twice a day. 6. Lisinopril 10 mg daily. 7. Nifedipine Procardia XL 90 mg daily. 8. Guiafenesin DM as needed for cough. 9. Erythropoietin 10,000 units Friday, Friday, Friday. 10. Zofran as needed. 11. Risperdal 1 mg at night. 12. Senokot-S 2 tabs twice a day as needed for constipation. 13. Tramadol one to two tablets twice a day as needed for pain. 14. Lantus 60 units at night. 15. Lactinex chewable one packet daily. Job ID: [id number] [id number]
[2018-08-21] MEDS ORDERED: Epoetin (ESRD) 10,000 UNITS/ML VIAL SC SCH (09:00)
== END 2018-08-19 18:50 | DRG 356 ==
LOC: ERS 10:23 → CCU 14:36 → T4-A 08-09 11:53
PROVIDERS: ADMIT Emergency Medicine; ATTEND Emergency Medicine
PROC: 30233L1 Transfusion of Nonautologous Fresh Plasma into Peripheral Vein, Percutaneous Approach (ICD-10-PCS; principal; 2018-08-07)
PROC: 30233N1 Transfusion of Nonautologous Red Blood Cells into Peripheral Vein, Percutaneous Approach (ICD-10-PCS; 2018-08-07)
PROC: 0BH17EZ Insertion of Endotracheal Airway into Trachea, Via Natural or Artificial Opening (ICD-10-PCS; 2018-08-07)
PROC: 02H633Z Insertion of Infusion Device into Right Atrium, Percutaneous Approach (ICD-10-PCS; 2018-08-07)
PROC: 0DJD8ZZ Inspection of Lower Intestinal Tract, Via Natural or Artificial Opening Endoscopic (ICD-10-PCS; 2018-08-07)
PROC: 5A1945Z Respiratory Ventilation, 24-96 Consecutive Hours (ICD-10-PCS; 2018-08-07)
PROC: 5A1D70Z Performance of Urinary Filtration, Intermittent, Less than 6 Hours Per Day (ICD-10-PCS; 2018-08-07)
PROC: 031B0ZF Bypass Right Radial Artery to Lower Arm Vein, Open Approach (ICD-10-PCS; 2018-08-14)
PROC: 05CD0ZZ Extirpation of Matter from Right Cephalic Vein, Open Approach (ICD-10-PCS; 2018-08-14)
PROC: 5A1D70Z Performance of Urinary Filtration, Intermittent, Less than 6 Hours Per Day (ICD-10-PCS; 2018-08-17)
DX: K57.31 Diverticulosis of large intestine without perforation or abscess with bleeding (principal); N18.6 End stage renal disease; R57.8 Other shock; J96.90 Respiratory failure, unspecified, unspecified whether with hypoxia or hypercapnia; G93.41 Metabolic encephalopathy; I12.0 Hypertensive chronic kidney disease with stage 5 chronic kidney disease or end stage renal disease; D62 Acute posthemorrhagic anemia; I82.611 Acute embolism and thrombosis of superficial veins of right upper extremity; E11.22 Type 2 diabetes mellitus with diabetic chronic kidney disease; Z99.2 Dependence on renal dialysis; I25.10 Atherosclerotic heart disease of native coronary artery without angina pectoris; E11.51 Type 2 diabetes mellitus with diabetic peripheral angiopathy without gangrene; E11.42 Type 2 diabetes mellitus with diabetic polyneuropathy; E87.5 Hyperkalemia; K52.9 Noninfective gastroenteritis and colitis, unspecified; E87.6 Hypokalemia; E78.5 Hyperlipidemia, unspecified; N52.9 Male erectile dysfunction, unspecified; Z79.82 Long term (current) use of aspirin; Z95.1 Presence of aortocoronary bypass graft
CPT/HCPCS: 31500; 36415; 36416; 36430; 51703; 71045; 80048; 80053; 81003; 81015; 82553; 82805; 83605; 84484; 85014; 85018; 85025; 86850; 86900; 86901; 87040; 87324; 87340; 87449; 90471; 90662; 90670; 90935; 93005; 94002; 94003; 96365; 96366; 96367; 96368; 96374; 96375; 96376; C9113; G0008; G0009; G0257; J0670; J0885; J1265; J1644; J1815; J1825; J2001; J2250; J2270; J2704; J2720; J3010; J3480; J7050; P9016; P9048; Q4081